=== PATIENT | male | born 1995 | race American Indian/Alaskan Native ===

== ENCOUNTER 2017-07-15 07:42 | Emergency (ER) | payer SELFPAY ==
[2017-07-15 08:17] VITALS: BP 122/68
== END 2017-07-15 09:25 | disposition left against medical advice (07) ==
LOC: ED 07:42
DX: R51 Headache (principal); M79.1 Myalgia; Z53.21 Procedure and treatment not carried out due to patient leaving prior to being seen by health care provider

== ENCOUNTER 2017-07-16 15:52 | Emergency (ER) | payer OTHER ==
[2017-07-16 16:19] LABS: Hematocrit 50.4 % (35.5-45.6); Hemoglobin 17.2 gm/dl (11.8-15.2); Mean Corpuscular HGB Conc 34 % (32-34); Mean Corpuscular Hemoglobin 29 pg (28-32); Mean Corpuscular Volume 86 fl (84-94); Platelet Count 333 K/mm3 (140-440); Red Blood Count 5.86 M/mm3 (3.65-5.03); Red Cell Distribution Width 13.2 % (13.2-15.2)
[2017-07-16] MEDS ORDERED: KEPPRA 1,000 MG/NS 0.75% 100ML 1,000 MG/100 ML BAG IV ONE (16:23)
[2017-07-16] MEDS ORDERED: ATIVAN IV ONE (16:23)
--- NOTE | 2017-07-16 16:31 | Emergency Department Report ---
HPI - General Chief Complaint: Seizure Time Seen by Provider: 07/16/17 16:18 - HPI HPI: 21-year-old male presents to the emergency department with complaint of a seizure that occurred prior to presentation. It is unknown how long the seizure lasted. The patient's girlfriend is bedside and says she was called by someone to come and get him and he appeared postictal at that time. He is now awake and alert but even upon presentation he was having some muscle spasms and/or jerking that was uncontrollable but he was awake and alert at the time. He has a history of some complex migraines as well as a seizure history but he says that he has been to 2 different neurologists and "nobody can figure out what is going on" and therefore he is not on any seizure medications. He does occasionally smoke marijuana but denies any alcohol. No recent travel or sick contacts at home. ED Past Medical Hx - Past Medical History Previous Medical History?: Yes Hx Headaches / Migraines: Yes (complex) Hx Asthma: Yes - Surgical History Past Surgical History?: No - Social History Smoking Status: Never Smoker Substance Use Type: Marijuana - Medications Home Medications: Home Medications Medication Instructions Recorded Confirmed Last Taken Type levETIRAcetam [Keppra TAB] 500 mg PO BID #40 tablet 07/16/17 Unknown Rx ED Review of Systems ROS: Stated complaint: SEIZURE Other details as noted in HPI Comment: All other systems reviewed and negative Constitutional: denies: chills, fever Eyes: denies: eye pain, eye discharge, vision change ENT: denies: ear pain, throat pain Respiratory: denies: cough, shortness of breath, wheezing Cardiovascular: denies: chest pain, palpitations Gastrointestinal: denies: abdominal pain, nausea, diarrhea Genitourinary: denies: urgency, dysuria Musculoskeletal: myalgia. denies: back pain, joint swelling Skin: denies: rash, lesions Neurological: headache, other (seizure). denies: numbness Physical Exam - Physical Exam Vital Signs: Vital Signs 07/16/17 07/16/17 16:11 16:17 Temperature 99.0 F Pulse Rate 78 Respiratory 16 19 Rate Blood Pressure 132/79 O2 Sat by Pulse 99 99 Oximetry Physical Exam: GENERAL: The patient is well-developed well-nourished. HENT: Normocephalic. Atraumatic. Patient has moist mucous membranes. EYES: Extraocular motions are intact. Pupils equal reactive to light bilaterally. No nystagmus. NECK: Supple. Trachea is midline. CHEST/LUNGS: Clear to auscultation. There is no respiratory distress noted. HEART/CARDIOVASCULAR: Regular. There is no tachycardia. There is no murmur. ABDOMEN: Abdomen is soft, nontender. Patient has normal bowel sounds. There is no abdominal distention. SKIN: Skin is warm and dry. NEURO: The patient is awake, alert, and oriented. The patient is cooperative. The patient has no focal neurologic deficits. The patient has normal speech and gait. Cranial nerves II through XII grossly intact. MUSCULOSKELETAL: There is no tenderness or deformity. There is no limitation range of motion. There is no evidence of acute injury. ED Course Vital Signs 07/16/17 07/16/17 16:11 16:17 Temperature 99.0 F Pulse Rate 78 Respiratory 16 19 Rate Blood Pressure 132/79 O2 Sat by Pulse 99 99 Oximetry ED Medical Decision Making - Lab Data Result diagrams: 07/16/17 15:54 07/16/17 15:54 - EKG Data -: EKG Interpreted by Fl EKG shows normal: sinus rhythm, axis (right axis deviation), intervals, QRS complexes, ST-T waves Rate: bradycardia (51 bpm) - EKG Data When compared to previous EKG there are: previous EKG unavailable Interpretation: other (sinus bradycardia at 51 bpm, right axis deviation) - Medical Decision Making Patient had a seizure prior to presentation but has been awake and alert since being in the emergency department. He also allegedly had some type of muscle spasm and/or twitching after the seizure and after the postictal period but I did not witness this. At this point the patient has been in the emergency department for over 3 hours and has been reevaluated multiple times and there has been no further seizure-like activity or any muscle spasm/twitches. His labs are been unremarkable and do not show any etiology of his symptoms. Since the patient does have a history of previous seizures and just had 1 episode today, and is currently awake and alert, did not feel that any CT imaging of the head was necessary at this time. He was covered with 1 g of Keppra. He was given a little Ativan more for the muscle spasm and/or twitching. Prior to discharge he was able to get up, ambulate around the emergency department, and did not show any instability. He has good follow-up with neurology. I am starting him on Keppra until he sees the neurologist. He apparently has some history of complex migraines and maybe this is the cause of the seizures but since he has had a few seizures in the last few weeks I will start him on the Keppra until neurology follow-up. He will return to the ER with any worsening of his symptoms or any acute distress. All questions have been answered and he understands and agrees to the plan. - Differential Diagnosis epilepsy, complex migraine, hypoglycemia, dysrhythmia Critical Care Time: No Critical care attestation.: If time is entered above; I have spent that time in minutes in the direct care of this critically ill patient, excluding procedure time. ED Disposition Clinical Impression: Seizure disorder Disposition: DC-01 TO HOME OR SELFCARE Is pt being admited?: No Condition: Stable Instructions: Recurrent Seizures Adult (ED) Additional Instructions: Please follow-up with your neurologist in the next few days. Return to the emergency Department with any worsening of your symptoms or any acute distress. Until you have been able to follow up with your neurologist, I have started you on a antiepileptic medication called Keppra that is to be taken twice daily. Prescriptions: levETIRAcetam [Keppra TAB] 500 mg PO BID #40 tablet Referrals: Neurologist, Your [Other] - LORI Forms: Work/School Release Form(ED) Time of Disposition: 19:19
[2017-07-16 17:10] LABS: BUN/Creatinine Ratio 17; Blood Urea Nitrogen 15 mg/dL (9-20); Calcium 9.8 mg/dL (8.4-10.2); Hemolysis Index 27
[2017-07-16] MEDS ORDERED: NACL 0.9% 1000 ML 1,000 ML IV ONE (17:18)
[2017-07-16 17:21] LABS: Alanine Aminotransferase 25 units/L (7-56); Albumin 5.4 g/dL (3.9-5)
[2017-07-16 17:29] LABS: Bilirubin,Direct < 0.2 mg/dL (0-0.2)
[2017-07-16 19:44] VITALS: BP 99/52
== END 2017-07-16 19:42 | disposition home or self-care (01) ==
LOC: ED 15:52
DX: G40.909 Epilepsy, unspecified, not intractable, without status epilepticus (principal); J45.909 Unspecified asthma, uncomplicated; G43.909 Migraine, unspecified, not intractable, without status migrainosus; F12.10 Cannabis abuse, uncomplicated
CPT/HCPCS: 36415; 80048; 80074; 82550; 84443; 85027; 93005; 93010; 96365; 96375; 99284; G0480; J1953; J2060; J7030; 80320

== ENCOUNTER 2017-08-24 12:05 | Emergency (ER) | payer OTHER ==
[2017-08-24 12:17] VITALS: BP 113/67
== END 2017-08-24 13:10 | disposition left against medical advice (07) ==
LOC: ED 12:05
DX: R56.9 Unspecified convulsions (principal); Z53.21 Procedure and treatment not carried out due to patient leaving prior to being seen by health care provider

== ENCOUNTER 2017-10-09 10:46 | Inpatient (IN) | payer OTHER ==
[2017-10-09] MEDS ORDERED: ATIVAN IV ONE ×4 (10:49→11:07)
[2017-10-09] MEDS ORDERED: KEPPRA 1,000 MG/NS 0.75% 100ML 1,000 MG/100 ML BAG IV ONE ×2 (11:00→22:20)
[2017-10-09] MEDS ORDERED: ARTIFICIAL TEARS OPHTH OINT OU PRN (11:01)
[2017-10-09] MEDS ORDERED: VASELINE LIP THERAPY TP PRN (11:01)
[2017-10-09] MEDS ORDERED: DIPRIVAN 10 MG/ML 1,000 MG/100 ML BOTTLE IV ONE ×2 (11:04→21:29)
[2017-10-09] MEDS: DIPRIVAN 10 MG/ML 1,000 MG/100 ML BOTTLE IV SCH ×2 (11:05→21:36)
--- NOTE | 2017-10-09 11:18 | Emergency Department Report ---
ED Seizure HPI - General Chief Complaint: Seizure Stated Complaint: SEIZURE Time Seen by Provider: 10/09/17 10:46 Source: patient, family Mode of arrival: Ambulatory Limitations: No Limitations - History of Present Illness Initial Comments: Patient is a 21-year-old male that presents to emergency room the POV and family for a 30 minute seizure. Patient continues to seize. Grand mal seizure noted. Patient has a known seizure history but has not had seizures in many years MD Complaint: seizure -: Sudden Description of Episode: loss of consciousness, tonic-clonic movement, bladder incontinence -: minutes(s) Witnessed:: Yes Trauma: No Seizure History: known seizure disorder Place: home Possible Precipitating Event: none Associated Symptoms: denies other symptoms, chest pain Treatments Prior to Arrival: none - Related Data Previous Rx's Medication Instructions Recorded Last Taken Type levETIRAcetam [Keppra TAB] 500 mg PO BID #40 tablet 07/16/17 Unknown Rx Allergies Allergy/AdvReac Type Severity Reaction Status Date / Time No Known Allergies Allergy Unverified 07/15/17 08:17 ED Review of Systems ROS: Stated complaint: SEIZURE Other details as noted in HPI Comment: Unobtainable due to pts medical conditions ED Past Medical Hx - Past Medical History Previous Medical History?: Yes Hx Headaches / Migraines: Yes (complex) Hx Seizures: Yes Hx Asthma: Yes - Surgical History Past Surgical History?: Yes Additional Surgical History: left shoulder - Family History Family history: no significant - Social History Smoking Status: Never Smoker Substance Use Type: Other - Medications Home Medications: Home Medications Medication Instructions Recorded Confirmed Last Taken Type levETIRAcetam [Keppra TAB] 500 mg PO BID #40 tablet 07/16/17 10/09/17 Unknown Rx ED Physical Exam - General Limitations: Altered Mental Status, Other (clinical situation) General appearance: lethargic - Head Head exam: Present: atraumatic, normocephalic - Eye Eye exam: Present: normal appearance, PERRL Pupils: Present: normal accommodation - ENT ENT exam: Present: mucous membranes dry - Neck Neck exam: Present: normal inspection - Respiratory Respiratory exam: Present: normal lung sounds bilaterally, respiratory distress , decreased breath sounds - Cardiovascular Cardiovascular Exam: Present: regular rate, normal rhythm. Absent: systolic murmur, diastolic murmur, rubs, gallop - GI/Abdominal GI/Abdominal exam: Present: soft - Rectal Rectal exam: Present: deferred - Extremities Exam Extremities exam: Present: normal inspection - Back Exam Back exam: Present: normal inspection - Neurological Exam Neurological exam: Present: altered, other (patient actively seizing) - Skin Skin exam: Present: warm, dry, intact, normal color. Absent: rash ED Course Vital Signs 10/09/17 10/09/17 10/09/17 10:48 11:42 12:36 Temperature 98.2 F Pulse Rate 92 H 68 57 L Respiratory 18 15 Rate Blood Pressure 133/61 Blood Pressure 123/85 [Left] O2 Sat by Pulse 100 100 Oximetry 10/09/17 14:07 Temperature Pulse Rate 55 L Respiratory Rate Blood Pressure 140/77 Blood Pressure [Left] O2 Sat by Pulse 100 Oximetry - Reevaluation(s) Reevaluation #1: Patient brought directly from POV to room 1. Patient is currently status epilepticus. Patient started being given 5 mg of Ativan and patient continues to seize. We will intubate patient to protect airway. Patient given etomidate and succ and seizure stopped. See intubation note. Patient will be given a gram of Keppra. 10/09/17 10:40 Family meeting done. Family updated on patient's status. 10/09/17 11:40 Reevaluation #2: Patient resting in bed on vent. CT head and labs pending. No seizure activity noted 10/09/17 12:52 Reevaluation #3: Patient resting comfortably on bed. No seizure activity since intubation. 10/09/17 14:00 - Consultations Consultation #1: Hospitalist consulted for admission. Hospitalist was admitted to the hospitalist and ICU team. Hospitalist, Dr. Baker to assume care 10/09/17 14:00 - Intubation Time Out Performed: Yes Sedative: Etomidate Paralytic: Succinylcholine Laryngoscope: Jaylin Size: 4 ET Tube Size: 7.5 Tube Secured Depth (cm): 24 Tube Secured Location: teeth Tube Placement Confirmation: visualized tube passing t, equal breath sounds bilat, no breath sounds over epi, confirmation by capnometr Patient Tolerated Procedure: well Intubation Complications: none ED Medical Decision Making - Lab Data Result diagrams: 10/09/17 11:39 10/09/17 11:39 - EKG Data -: EKG Interpreted by Me EKG shows normal: sinus rhythm, axis, intervals, QRS complexes, ST-T waves Rate: bradycardia - Radiology Data Radiology results: image reviewed interpreted by me: et in good place ADDENDUM Addendum: Tip of endotracheal is in normal position. Addendum Transcribed By: NATALIIA Addendum Dictated By: JESS CASSIDY MD Addendum Electronically Authenticated By: JESS CASSIDY MD Addendum Signed Date/Time: 10/09/171224 DD/ TD/TT: 10/09/17 Single view chest: History: ET tube placement. Findings: Normal cardiomediastinal silhouette. Trachea is midline. No consolidation, pneumothorax or pleural effusion. Impression: No acute cardiopulmonary findings Transcribed By: PTP Dictated By: JESS CASSIDY MD Electronically Authenticated By: JESS CASSIDY MD Signed Date/Time: 10/09/172 - Medical Decision Making Patient is a 21-year-old male that presents emergency room with status epilepticus for 30+ minutes. Patient's seizure in ER was difficult to control. Patient required intubation to protect airway. Since intubation no seizure activity has been noted. CT head normal limit. X-ray shows ET tube in good place. Patient to be admitted to the hospitalist service for further evaluation and treatment. Patient admitted to the ICU team for further evaluation treatment. - Differential Diagnosis sz. Noncompliance. Dehydration. Status epilepticus Critical Care Time: Yes Critical care attestation.: If time is entered above; I have spent that time in minutes in the direct care of this critically ill patient, excluding procedure time. Critical Care Time: 45 minutes for cc time. ED Disposition Clinical Impression: Seizure, Status epilepticus, Lactic acidosis Disposition: OP ADMIT IP TO THIS HOSP Is pt being admited?: Yes Does the pt Need Aspirin: No Condition: Critical Time of Disposition: 13:19
[2017-10-09] MEDS ORDERED: NACL 0.9% 1000 ML 0 ML ONE (11:26)
[2017-10-09] MEDS ORDERED: NACL 0.9% 500 ML IV SCH (12:00)
--- NOTE | 2017-10-09 12:31 | XRay Report ---
Single view chest: History: ET tube placement. Findings: Normal cardiomediastinal silhouette. Trachea is midline. No consolidation, pneumothorax or pleural effusion. Impression: No acute cardiopulmonary findings
[2017-10-09] MEDS ORDERED: NACL 0.9% 1000 ML 1,000 ML ONE ×3 (12:36→23:02)
[2017-10-09 12:37] LABS: Hematocrit 45.4 % (35.5-45.6); Hemoglobin 14.2 gm/dl (11.8-15.2); Mean Corpuscular HGB Conc 31 % (32-34); Mean Corpuscular Hemoglobin 29 pg (28-32); Mean Corpuscular Volume 94 fl (84-94); Platelet Count 225 K/mm3 (140-440); Red Blood Count 4.85 M/mm3 (3.65-5.03); Red Cell Distribution Width 13.9 % (13.2-15.2)
[2017-10-09 12:49] LABS: Bacteria,Urine 1+ /HPF (Negative); Bilirubin,Urine NEG (Negative); Blood,Urine NEG (Negative); Color,Urine Yellow (Yellow); Hyaline Casts,Urine 3 /LPF; Mucus,Urine FEW /HPF; RBC,Urine < 1.0 /HPF (0.0-6.0); Sperm,Urine FEW /HPF (NP); Urobilinogen,Urine < 2.0 mg/dL (<2.0)
[2017-10-09 12:50] LABS: Alanine Aminotransferase 18 units/L (7-56); Albumin 3.9 g/dL (3.9-5); BUN/Creatinine Ratio 13; Blood Urea Nitrogen 12 mg/dL (9-20); Calcium 8.7 mg/dL (8.4-10.2); Hemolysis Index 23
[2017-10-09 12:54] LABS: Amphetamine Screen,Urine PRESUMPTIVE NEGATIVE; Benzodiazepines Screen,Urine PRESUMPTIVE NEGATIVE; Cocaine Screen,Urine PRESUMPTIVE NEGATIVE; Methadone Screen,Urine PRESUMPTIVE NEGATIVE; Opiate Screen,Urine PRESUMPTIVE NEGATIVE
[2017-10-09] MEDS ORDERED: AMIDATE IV ONE (13:00)
[2017-10-09] MEDS ORDERED: QUELICIN ONE (13:00)
[2017-10-09 13:09] LABS: Cannabinoid Screen,Urine PRESUMPTIVE POSITIVE
--- NOTE | 2017-10-09 13:13 | Cat Scan Report ---
CT scan of head without IV contrast: History: Seizure. Findings: Ventricles are normal in size and midline in location. No evidence of hematoma hemorrhage or mass. No extra-axial fluid collection. Normal visualized sinuses and mastoid air cells Impression: No acute intracranial abnormality
[2017-10-09 13:18] LABS: Total Cells Counted 100
[2017-10-09 13:19] LABS: Basophils % (Manual) 0 % (0.0-1.8); Eosinophils % (Manual) 0 % (0.0-4.3)
[2017-10-09 13:20] LABS: RBC Morphology Normal
[2017-10-09 14:48] LABS: Creatine Kinase MB 1.3 ng/mL (0.0-4.0)
--- NOTE | 2017-10-09 16:33 | History and Physical Report ---
History of Present Illness Date of examination: 10/09/17 Date of admission: 10/09/17 Chief complaint: Cc Cont seizures History of present illness: History of Present Illness: Patient is a 21-year-old male that presents to emergency room the POV and family for a 30 minute seizure. Patient continues to seize. Grand mal seizure noted. Patient has a known seizure history but has not had seizures in many years MD Complaint: seizure -: Sudden Description of Episode: loss of consciousness, tonic-clonic movement, bladder incontinence 30 minutes(s) Witnessed:: Yes Trauma: No Seizure History: known seizure disorder Place: home Possible Precipitating Event: none Associated Symptoms: denies other symptoms, chest pain Treatments Prior to Arrival: none Past Medical History Previous Medical History?: Yes Hx Headaches / Migraines: Yes (complex) Hx Seizures: Yes Hx Asthma: Yes Surgical History Past Surgical History?: Yes Additional Surgical History: left shoulder Family History Family history: no significant Social History Smoking Status: Never Smoker Substance Use Type: Other - Medications Home Medications: Home Medications Medication Instructions Recorded Confirmed Last Taken Type levETIRAcetam [Keppra TAB] 500 mg PO BID #40 tablet 07/16/17 10/09/17 Unknown Rx Review of Systems ROS: Stated complaint: SEIZURE Other details as noted in HPI Comment: Unobtainable due to pts medical conditions Medications and Allergies Allergies Allergy/AdvReac Type Severity Reaction Status Date / Time No Known Allergies Allergy Unverified 07/15/17 08:17 Home Medications Medication Instructions Recorded Confirmed Last Taken Type levETIRAcetam [Keppra TAB] 500 mg PO BID #40 tablet 07/16/17 10/09/17 Unknown Rx Active Meds: Active Medications Hydrophilic Ointment (Vaseline Lip Therapy) 1 applic TP Q2HR PRN PRN Reason: Dry Lips Propofol (Diprivan 10 Mg/Ml) 1,000 mg in 100 mls @ 2.449 mls/hr IV TITR VALERIA; Protocol Last Titration: 10/09/17 11:50 Dose: 40 mcg/kg/min, 19.595 mls/hr Multi-Ingred Cream/Lotion/Oil/Oint (Artificial Tears Ophth Oint) 1 applic OU Q4HR PRN PRN Reason: Dry Eye(s) Sodium Chloride (Nacl 0.9% 500 Ml) 1 ml IV DIRECT VALERIA Exam - Physical Exam Narrative exam: Patient intubated - Constitutional Vitals: Temp Pulse Resp BP Pulse Ox 98.2 F 55 L 15 140/77 100 10/09/17 12:36 10/09/17 14:07 10/09/17 12:36 10/09/17 14:07 10/09/17 14:07 General appearance: Present: severe distress, well-nourished - EENT Eyes: Present: PERRL ENT: hearing intact, clear oral mucosa - Neck Neck: Present: supple, normal ROM - Respiratory Respiratory effort: normal Respiratory: bilateral: CTA - Cardiovascular Heart rate: 80 Rhythm: regular Heart Sounds: Present: S1 & S2. Absent: rub, click - Extremities Extremities: no ischemia, pulses intact, pulses symmetrical, No edema Peripheral Pulses: within normal limits - Abdominal General gastrointestinal: Present: soft, non-tender, non-distended, normal bowel sounds Male genitourinary: Present: normal - Rectal Rectal Exam: deferred - Integumentary Integumentary: Present: clear, warm, dry - Musculoskeletal Musculoskeletal: generalized weakness - Psychiatric Psychiatric: other (Intubated) - Neurologic Neurologic: CNII-XII intact, moves all extremities Results - Labs CBC & Chem 7: 10/10/17 05:23 10/10/17 05:23 Labs: Laboratory Last Values WBC 3.4 K/mm3 (4.5-11.0) L 10/09/17 11:39 RBC 4.85 M/mm3 (3.65-5.03) 10/09/17 11:39 Hgb 14.2 gm/dl (11.8-15.2) 10/09/17 11:39 Hct 45.4 % (35.5-45.6) 10/09/17 11:39 MCV 94 fl (84-94) 10/09/17 11:39 MCH 29 pg (28-32) 10/09/17 11:39 MCHC 31 % (32-34) L 10/09/17 11:39 RDW 13.9 % (13.2-15.2) 10/09/17 11:39 Plt Count 225 K/mm3 (140-440) 10/09/17 11:39 Add Manual Diff Complete 10/09/17 11:39 Total Counted 100 10/09/17 11:39 Seg Neuts % (Manual) 56.0 % (40.0-70.0) 10/09/17 11:39 Band Neutrophils % 0 % 10/09/17 11:39 Lymphocytes % (Manual) 32.0 % (13.4-35.0) 10/09/17 11:39 Reactive Lymphs % (Man) 0 % 10/09/17 11:39 Monocytes % (Manual) 12.0 % (0.0-7.3) H 10/09/17 11:39 Eosinophils % (Manual) 0 % (0.0-4.3) 10/09/17 11:39 Basophils % (Manual) 0 % (0.0-1.8) 10/09/17 11:39 Metamyelocytes % 0 % 10/09/17 11:39 Myelocytes % 0 % 10/09/17 11:39 Promyelocytes % 0 % 10/09/17 11:39 Blast Cells % 0 % 10/09/17 11:39 Nucleated RBC % Not Reportable 10/09/17 11:39 Seg Neutrophils # Man 1.9 K/mm3 (1.8-7.7) 10/09/17 11:39 Band Neutrophils # 0.0 K/mm3 10/09/17 11:39 Lymphocytes # (Manual) 1.1 K/mm3 (1.2-5.4) L 10/09/17 11:39 Abs React Lymphs (Man) 0.0 K/mm3 10/09/17 11:39 Monocytes # (Manual) 0.4 K/mm3 (0.0-0.8) 10/09/17 11:39 Eosinophils # (Manual) 0.0 K/mm3 (0.0-0.4) 10/09/17 11:39 Basophils # (Manual) 0.0 K/mm3 (0.0-0.1) 10/09/17 11:39 Metamyelocytes # 0.0 K/mm3 10/09/17 11:39 Myelocytes # 0.0 K/mm3 10/09/17 11:39 Promyelocytes # 0.0 K/mm3 10/09/17 11:39 Blast Cells # 0.0 K/mm3 10/09/17 11:39 WBC Morphology Not Reportable 10/09/17 11:39 Hypersegmented Neuts Not Reportable 10/09/17 11:39 Hyposegmented Neuts Not Reportable 10/09/17 11:39 Hypogranular Neuts Not Reportable 10/09/17 11:39 Smudge Cells Not Reportable 10/09/17 11:39 Toxic Granulation Not Reportable 10/09/17 11:39 Toxic Vacuolation Not Reportable 10/09/17 11:39 Dohle Bodies Not Reportable 10/09/17 11:39 Pelger-Huet Anomaly Not Reportable 10/09/17 11:39 Artie Rods Not Reportable 10/09/17 11:39 Platelet Estimate Appears normal 10/09/17 11:39 Clumped Platelets Not Reportable 10/09/17 11:39 Plt Clumps, EDTA Not Reportable 10/09/17 11:39 Large Platelets Not Reportable 10/09/17 11:39 Giant Platelets Not Reportable 10/09/17 11:39 Platelet Satelliting Not Reportable 10/09/17 11:39 Plt Morphology Comment Not Reportable 10/09/17 11:39 RBC Morphology Normal 10/09/17 11:39 Dimorphic RBCs Not Reportable 10/09/17 11:39 Polychromasia Not Reportable 10/09/17 11:39 Hypochromasia Not Reportable 10/09/17 11:39 Poikilocytosis Not Reportable 10/09/17 11:39 Anisocytosis Not Reportable 10/09/17 11:39 Microcytosis Not Reportable 10/09/17 11:39 Macrocytosis Not Reportable 10/09/17 11:39 Spherocytes Not Reportable 10/09/17 11:39 Pappenheimer Bodies Not Reportable 10/09/17 11:39 Sickle Cells Not Reportable 10/09/17 11:39 Target Cells Not Reportable 10/09/17 11:39 Tear Drop Cells Not Reportable 10/09/17 11:39 Ovalocytes Not Reportable 10/09/17 11:39 Helmet Cells Not Reportable 10/09/17 11:39 [place] Bodies Not Reportable 10/09/17 11:39 [place] Rings Not Reportable 10/09/17 11:39 [place] Cells Not Reportable 10/09/17 11:39 Bite Cells Not Reportable 10/09/17 11:39 Crenated Cell Not Reportable 10/09/17 11:39 Elliptocytes Not Reportable 10/09/17 11:39 Acanthocytes (Spur) Not Reportable 10/09/17 11:39 Rouleaux Not Reportable 10/09/17 11:39 Hemoglobin C Crystals Not Reportable 10/09/17 11:39 Schistocytes Not Reportable 10/09/17 11:39 Malaria parasites Not Reportable 10/09/17 11:39 Bogdan Bodies Not Reportable 10/09/17 11:39 Hem Pathologist Commnt No 10/09/17 11:39 POC ABG pH 7.346 (7.35-7.45) L 10/09/17 14:05 POC ABG pCO2 49.0 (35-45) H 10/09/17 14:05 POC ABG pO2 301 (80-105) H 10/09/17 14:05 POC ABG HCO3 26.8 10/09/17 14:05 POC ABG Total CO2 28 10/09/17 14:05 POC ABG O2 Sat 100 10/09/17 14:05 POC ABG Base Excess 1 10/09/17 14:05 FiO2 55 % 10/09/17 14:05 Sodium 144 mmol/L (137-145) 10/09/17 11:39 Potassium 3.5 mmol/L (3.6-5.0) L 10/09/17 11:39 Chloride 107.1 mmol/L (98-107) H 10/09/17 11:39 Carbon Dioxide 21 mmol/L (22-30) L 10/09/17 11:39 Anion Gap 19 mmol/L 10/09/17 11:39 BUN 12 mg/dL (9-20) 10/09/17 11:39 Creatinine 0.9 mg/dL (0.8-1.5) 10/09/17 11:39 Estimated GFR > 60 ml/min 10/09/17 11:39 BUN/Creatinine Ratio 13 % 10/09/17 11:39 Glucose 92 mg/dL (75-100) 10/09/17 11:39 Lactic Acid 2.50 mmol/L (0.7-2.0) H* 10/09/17 15:39 Calcium 8.7 mg/dL (8.4-10.2) 10/09/17 11:39 Total Bilirubin 0.40 mg/dL (0.1-1.2) 10/09/17 11:39 AST 21 units/L (5-40) 10/09/17 11:39 ALT 18 units/L (7-56) 10/09/17 11:39 Alkaline Phosphatase 36 units/L (35-129) 10/09/17 11:39 Total Creatine Kinase 217 units/L (55-170) H 10/09/17 11:39 CK-MB (CK-2) 1.3 ng/mL (0.0-4.0) 10/09/17 11:39 CK-MB (CK-2) Rel Index 0.5 (0-4) 10/09/17 11:39 Troponin T < 0.010 ng/mL (0.00-0.029) 10/09/17 11:39 Total Protein 6.8 g/dL (6.3-8.2) 10/09/17 11:39 Albumin 3.9 g/dL (3.9-5) 10/09/17 11:39 Albumin/Globulin Ratio 1.3 % 10/09/17 11:39 Urine Color Yellow (Yellow) 10/09/17 12:30 Urine Turbidity Clear (Clear) 10/09/17 12:30 Urine pH 6.0 (5.0-7.0) 10/09/17 12:30 Ur Specific [place] 1.023 (1.003-1.030) 10/09/17 12:30 Urine Protein 30 mg/dl mg/dL (Negative) 10/09/17 12:30 Urine Glucose (UA) Neg mg/dL (Negative) 10/09/17 12:30 Urine Ketones Neg mg/dL (Negative) 10/09/17 12:30 Urine Blood Neg (Negative) 10/09/17 12:30 Urine Nitrite Neg (Negative) 10/09/17 12:30 Urine Bilirubin Neg (Negative) 10/09/17 12:30 Urine Urobilinogen < 2.0 mg/dL (<2.0) 10/09/17 12:30 Ur Leukocyte Esterase Neg (Negative) 10/09/17 12:30 Urine WBC (Auto) 2.0 /HPF (0.0-6.0) 10/09/17 12:30 Urine RBC (Auto) < 1.0 /HPF (0.0-6.0) 10/09/17 12:30 Urine Bacteria (Auto) 1+ /HPF (Negative) 10/09/17 12:30 Hyaline Casts 3 /LPF 10/09/17 12:30 Urine Mucus Few /HPF 10/09/17 12:30 Urine Sperm Few /HPF (PLATFORM CONSULTANT) 10/09/17 12:30 Urine Opiates Screen Presumptive negative 10/09/17 12:30 Urine Methadone Screen Presumptive negative 10/09/17 12:30 Ur Barbiturates Screen Presumptive negative 10/09/17 12:30 Ur Phencyclidine Scrn Presumptive negative 10/09/17 12:30 Ur Amphetamines Screen Presumptive negative 10/09/17 12:30 U Benzodiazepines Scrn Presumptive negative 10/09/17 12:30 Urine Cocaine Screen Presumptive negative 10/09/17 12:30 U Marijuana (THC) Screen Presumptive positive 10/09/17 12:30 Drugs of Abuse Note Disclamer 10/09/17 12:30 Short CBC 10/09/17 10/10/17 Range/Units 11:39 05:23 WBC 3.4 L 5.3 (4.5-11.0) K/mm3 Hgb 14.2 13.4 (11.8-15.2) gm/dl Hct 45.4 39.1 D (35.5-45.6) % Plt Count 225 208 (140-440) K/mm3 BMP 10/09/17 10/10/17 11:39 05:23 Sodium 144 143 Potassium 3.5 L 3.7 Chloride 107.1 H 109.1 H Carbon Dioxide 21 L 26 BUN 12 8 L Creatinine 0.9 0.8 Glucose 92 86 Calcium 8.7 8.7 Cardiac Enzymes 10/09/17 Range/Units 11:39 Total Creatine Kinase 217 H (55-170) units/L CK-MB (CK-2) 1.3 (0.0-4.0) ng/mL Troponin T < 0.010 (0.00-0.029) ng/mL Liver Function 10/09/17 10/10/17 Range/Units 11:39 05:23 Total Bilirubin 0.40 0.40 (0.1-1.2) mg/dL AST 21 17 (5-40) units/L ALT 18 12 (7-56) units/L Alkaline Phosphatase 36 34 L (35-129) units/L Albumin 3.9 3.7 L (3.9-5) g/dL Urine 10/09/17 Range/Units 12:30 Urine Color Yellow (Yellow) Urine pH 6.0 (5.0-7.0) Ur Specific [place] 1.023 (1.003-1.030) Urine Protein 30 mg/dl (Negative) mg/dL Urine Glucose (UA) Neg (Negative) mg/dL - Imaging and Cardiology CT Scan - head: report reviewed (Naf) Assessment and Plan Assessment and plan: Critical care Statement: The high probability of a clinically significant, sudden or life threatening deterioration of the [Pulmonary, cadiac, renal] system(s) required my full and direct attention, intervention and personal management. The aggregate critical care time was [45] minutes. This time is in addition to time spent performing reported procedures but includes the following: [x] Data Review and interpretation [x] Patient assessment and monitoring of vital signs [x] Documentation [x] Medication orders and management Advance Directives: Yes (FC) VTE prophylaxis?: Chemical Plan of care discussed with patient/family: Yes - Patient Problems (1) Acute respiratory failure Current Visit: Yes Status: Acute Qualifiers: Respiratory failure complication: unspecified whether with hypoxia or hypercapnia Qualified Code(s): J96.00 - Acute respiratory failure, unspecified whether with hypoxia or hypercapnia Plan to address problem: Intubated for airway proection Pulmonary/critical care consult requested (2) Status epilepticus Current Visit: Yes Status: Acute Plan to address problem: IV keppra initiated Neuro consult Compliance issues (3) Lactic acidosis Current Visit: Yes Status: Acute Plan to address problem: Sec to seizing No signs of sepsis No abx were initiated (4) Hypokalemia Current Visit: Yes Status: Acute Plan to address problem: Suppplemented (5) DVT prophylaxis Current Visit: Yes Status: Acute Plan to address problem: On Lovenox
[2017-10-09] MEDS ORDERED: SODIUM CHLORIDE FLUSH SYRINGE 10 ML IV PRN (16:38)
[2017-10-09] MEDS ORDERED: MORPHINE IV PRN (16:38)
[2017-10-09] MEDS ORDERED: fentaNYL DRIP Premix 2,000 MCG/100 ML BAG IV ONE (20:39)
[2017-10-09] MEDS: fentaNYL DRIP Premix 2,000 MCG/100 ML BAG IV SCH (20:45)
[2017-10-09] MEDS ORDERED: PEPCID IV ONE (22:20)
[2017-10-09] MEDS: PEPCID IV SCH (22:23)
[2017-10-09] MEDS: SODIUM CHLORIDE FLUSH SYRINGE 10 ML IV SCH (22:24)
[2017-10-09] MEDS: KEPPRA 1,000 MG/NS 0.75% 100ML 1,000 MG/100 ML BAG IV SCH (22:24)
[2017-10-09] MEDS ORDERED: D5NS 1,000 ML IV ONE (23:06)
[2017-10-09] MEDS: D5NS 1,000 ML IV SCH (23:08)
[2017-10-10] MEDS ORDERED: DIPRIVAN 10 MG/ML 1,000 MG/100 ML BOTTLE IV ONE ×4 (00:47→12:38)
--- NOTE | 2017-10-10 03:31 | XRay Report ---
FINAL REPORT PROCEDURE: XR CHEST 1V AP TECHNIQUE: Chest radiograph anteroposterior view. CPT 42996 HISTORY: follow up respiratory failure COMPARISON: No prior studies are available for comparison. FINDINGS: Heart: Normal. Mediastinum/Vessels: Normal. Lungs/Pleural space: Normal. Bony thorax: No acute osseous abnormality. Life support devices: The endotracheal tube is in the mid trachea.. IMPRESSION: No acute cardiopulmonary abnormality.
[2017-10-10] MEDS ORDERED: fentaNYL DRIP Premix 0 MCG/0 ML BAG IV ONE (04:28)
[2017-10-10 05:45] LABS: Basophils % (Auto) 0.5 % (0.0-1.8); Eosinophils # (Auto) 0.1 K/mm3 (0.0-0.4); Eosinophils % (Auto) 1.3 % (0.0-4.3); Hematocrit 39.1 % (35.5-45.6); Hemoglobin 13.4 gm/dl (11.8-15.2); Lymphocytes # (Auto) 1.1 K/mm3 (1.2-5.4); Mean Corpuscular HGB Conc 34 % (32-34); Mean Corpuscular Hemoglobin 30 pg (28-32); Mean Corpuscular Volume 86 fl (84-94); Monocytes # (Auto) 0.6 K/mm3 (0.0-0.8); Monocytes % (Auto) 11.6 % (0.0-7.3); Platelet Count 208 K/mm3 (140-440); Red Blood Count 4.53 M/mm3 (3.65-5.03); Red Cell Distribution Width 13.1 % (13.2-15.2)
[2017-10-10 07:37] LABS: Alanine Aminotransferase 12 units/L (7-56); Albumin 3.7 g/dL (3.9-5); BUN/Creatinine Ratio 10; Blood Urea Nitrogen 8 mg/dL (9-20); Calcium 8.7 mg/dL (8.4-10.2); Hemolysis Index 7
[2017-10-10] MEDS ORDERED: fentaNYL DRIP Premix 2,000 MCG/100 ML BAG IV ONE (08:37)
--- NOTE | 2017-10-10 09:36 | Progress Note ---
Assessment and Plan Assessment and plan: Breakthrough seizures. Girlfriend states he had not taken Keppra in 1-2 weeks Acute resp failure, intubated Pulm consulted Medical non-compliance. Full code status History Interval history: breakthrough seizures after stopping Keppra for 2 weeks Hospitalist Physical - Physical exam Narrative exam: GEN:Not in acute distress, Intubated HEENT: Normocephalic, atraumatic, Neck: supple, No JVD Lungs:Clear to auscultation bilaterally, no crackles, no wheeze Heart:S1 and S2 reg, no murmurs, rubs or gallop Abd:soft, non-tender, non-distended, Normal bowel sounds Ext: no edema, no clubbing or cyanosis Neuro: Intubated, sedated - Constitutional Vitals: Temp Pulse Resp BP Pulse Ox 98.6 F 52 L 16 104/56 100 10/09/17 18:43 10/10/17 09:21 10/10/17 08:01 10/10/17 09:21 10/10/17 09:21 General appearance: Present: well-nourished Results - Labs CBC & Chem 7: 10/10/17 05:23 10/10/17 05:23 Labs: Laboratory Last Values WBC 5.3 K/mm3 (4.5-11.0) 10/10/17 05:23 RBC 4.53 M/mm3 (3.65-5.03) 10/10/17 05:23 Hgb 13.4 gm/dl (11.8-15.2) 10/10/17 05:23 Hct 39.1 % (35.5-45.6) D 10/10/17 05:23 MCV 86 fl (84-94) 10/10/17 05:23 MCH 30 pg (28-32) 10/10/17 05:23 MCHC 34 % (32-34) 10/10/17 05:23 RDW 13.1 % (13.2-15.2) L 10/10/17 05:23 Plt Count 208 K/mm3 (140-440) 10/10/17 05:23 Lymph % (Auto) 21.0 % (13.4-35.0) 10/10/17 05:23 [place] % (Auto) 11.6 % (0.0-7.3) H 10/10/17 05:23 Eos % (Auto) 1.3 % (0.0-4.3) 10/10/17 05:23 Baso % (Auto) 0.5 % (0.0-1.8) 10/10/17 05:23 Lymph # 1.1 K/mm3 (1.2-5.4) L 10/10/17 05:23 [place] # 0.6 K/mm3 (0.0-0.8) 10/10/17 05:23 Eos # 0.1 K/mm3 (0.0-0.4) 10/10/17 05:23 Baso # 0.0 K/mm3 (0.0-0.1) 10/10/17 05:23 Add Manual Diff Complete 10/09/17 11:39 Total Counted 100 10/09/17 11:39 Seg Neutrophils % 65.6 % (40.0-70.0) 10/10/17 05:23 Seg Neuts % (Manual) 56.0 % (40.0-70.0) 10/09/17 11:39 Band Neutrophils % 0 % 10/09/17 11:39 Lymphocytes % (Manual) 32.0 % (13.4-35.0) 10/09/17 11:39 Reactive Lymphs % (Man) 0 % 10/09/17 11:39 Monocytes % (Manual) 12.0 % (0.0-7.3) H 10/09/17 11:39 Eosinophils % (Manual) 0 % (0.0-4.3) 10/09/17 11:39 Basophils % (Manual) 0 % (0.0-1.8) 10/09/17 11:39 Metamyelocytes % 0 % 10/09/17 11:39 Myelocytes % 0 % 10/09/17 11:39 Promyelocytes % 0 % 10/09/17 11:39 Blast Cells % 0 % 10/09/17 11:39 Nucleated RBC % Not Reportable 10/09/17 11:39 Seg Neutrophils # 3.5 K/mm3 (1.8-7.7) 10/10/17 05:23 Seg Neutrophils # Man 1.9 K/mm3 (1.8-7.7) 10/09/17 11:39 Band Neutrophils # 0.0 K/mm3 10/09/17 11:39 Lymphocytes # (Manual) 1.1 K/mm3 (1.2-5.4) L 10/09/17 11:39 Abs React Lymphs (Man) 0.0 K/mm3 10/09/17 11:39 Monocytes # (Manual) 0.4 K/mm3 (0.0-0.8) 10/09/17 11:39 Eosinophils # (Manual) 0.0 K/mm3 (0.0-0.4) 10/09/17 11:39 Basophils # (Manual) 0.0 K/mm3 (0.0-0.1) 10/09/17 11:39 Metamyelocytes # 0.0 K/mm3 10/09/17 11:39 Myelocytes # 0.0 K/mm3 10/09/17 11:39 Promyelocytes # 0.0 K/mm3 10/09/17 11:39 Blast Cells # 0.0 K/mm3 10/09/17 11:39 WBC Morphology Not Reportable 10/09/17 11:39 Hypersegmented Neuts Not Reportable 10/09/17 11:39 Hyposegmented Neuts Not Reportable 10/09/17 11:39 Hypogranular Neuts Not Reportable 10/09/17 11:39 Smudge Cells Not Reportable 10/09/17 11:39 Toxic Granulation Not Reportable 10/09/17 11:39 Toxic Vacuolation Not Reportable 10/09/17 11:39 Dohle Bodies Not Reportable 10/09/17 11:39 Pelger-Huet Anomaly Not Reportable 10/09/17 11:39 Artie Rods Not Reportable 10/09/17 11:39 Platelet Estimate Appears normal 10/09/17 11:39 Clumped Platelets Not Reportable 10/09/17 11:39 Plt Clumps, EDTA Not Reportable 10/09/17 11:39 Large Platelets Not Reportable 10/09/17 11:39 Giant Platelets Not Reportable 10/09/17 11:39 Platelet Satelliting Not Reportable 10/09/17 11:39 Plt Morphology Comment Not Reportable 10/09/17 11:39 RBC Morphology Normal 10/09/17 11:39 Dimorphic RBCs Not Reportable 10/09/17 11:39 Polychromasia Not Reportable 10/09/17 11:39 Hypochromasia Not Reportable 10/09/17 11:39 Poikilocytosis Not Reportable 10/09/17 11:39 Anisocytosis Not Reportable 10/09/17 11:39 Microcytosis Not Reportable 10/09/17 11:39 Macrocytosis Not Reportable 10/09/17 11:39 Spherocytes Not Reportable 10/09/17 11:39 Pappenheimer Bodies Not Reportable 10/09/17 11:39 Sickle Cells Not Reportable 10/09/17 11:39 Target Cells Not Reportable 10/09/17 11:39 Tear Drop Cells Not Reportable 10/09/17 11:39 Ovalocytes Not Reportable 10/09/17 11:39 Helmet Cells Not Reportable 10/09/17 11:39 [place] Bodies Not Reportable 10/09/17 11:39 [place] Rings Not Reportable 10/09/17 11:39 [place] Cells Not Reportable 10/09/17 11:39 Bite Cells Not Reportable 10/09/17 11:39 Crenated Cell Not Reportable 10/09/17 11:39 Elliptocytes Not Reportable 10/09/17 11:39 Acanthocytes (Spur) Not Reportable 10/09/17 11:39 Rouleaux Not Reportable 10/09/17 11:39 Hemoglobin C Crystals Not Reportable 10/09/17 11:39 Schistocytes Not Reportable 10/09/17 11:39 Malaria parasites Not Reportable 10/09/17 11:39 Bogdan Bodies Not Reportable 10/09/17 11:39 Hem Pathologist Commnt No 10/09/17 11:39 POC ABG pH 7.467 (7.35-7.45) H 10/10/17 05:54 POC ABG pCO2 38.5 (35-45) 10/10/17 05:54 POC ABG pO2 169 (80-105) H 10/10/17 05:54 POC ABG HCO3 27.9 10/10/17 05:54 POC ABG Total CO2 29 10/10/17 05:54 POC ABG O2 Sat 100 10/10/17 05:54 POC ABG Base Excess 4 10/10/17 05:54 FiO2 35 % 10/10/17 05:54 Sodium 143 mmol/L (137-145) 10/10/17 05:23 Potassium 3.7 mmol/L (3.6-5.0) 10/10/17 05:23 Chloride 109.1 mmol/L (98-107) H 10/10/17 05:23 Carbon Dioxide 26 mmol/L (22-30) 10/10/17 05:23 Anion Gap 12 mmol/L 10/10/17 05:23 BUN 8 mg/dL (9-20) L 10/10/17 05:23 Creatinine 0.8 mg/dL (0.8-1.5) 10/10/17 05:23 Estimated GFR > 60 ml/min 10/10/17 05:23 BUN/Creatinine Ratio 10 % 10/10/17 05:23 Glucose 86 mg/dL (75-100) 10/10/17 05:23 Lactic Acid 1.90 mmol/L (0.7-2.0) 10/09/17 17:10 Calcium 8.7 mg/dL (8.4-10.2) 10/10/17 05:23 Total Bilirubin 0.40 mg/dL (0.1-1.2) 10/10/17 05:23 AST 17 units/L (5-40) 10/10/17 05:23 ALT 12 units/L (7-56) 10/10/17 05:23 Alkaline Phosphatase 34 units/L (35-129) L 10/10/17 05:23 Total Creatine Kinase 217 units/L (55-170) H 10/09/17 11:39 CK-MB (CK-2) 1.3 ng/mL (0.0-4.0) 10/09/17 11:39 CK-MB (CK-2) Rel Index 0.5 (0-4) 10/09/17 11:39 Troponin T < 0.010 ng/mL (0.00-0.029) 10/09/17 11:39 Total Protein 5.9 g/dL (6.3-8.2) L 10/10/17 05:23 Albumin 3.7 g/dL (3.9-5) L 10/10/17 05:23 Albumin/Globulin Ratio 1.7 % 10/10/17 05:23 Urine Color Yellow (Yellow) 10/09/17 12:30 Urine Turbidity Clear (Clear) 10/09/17 12:30 Urine pH 6.0 (5.0-7.0) 10/09/17 12:30 Ur Specific [place] 1.023 (1.003-1.030) 10/09/17 12:30 Urine Protein 30 mg/dl mg/dL (Negative) 10/09/17 12:30 Urine Glucose (UA) Neg mg/dL (Negative) 10/09/17 12:30 Urine Ketones Neg mg/dL (Negative) 10/09/17 12:30 Urine Blood Neg (Negative) 10/09/17 12:30 Urine Nitrite Neg (Negative) 10/09/17 12:30 Urine Bilirubin Neg (Negative) 10/09/17 12:30 Urine Urobilinogen < 2.0 mg/dL (<2.0) 10/09/17 12:30 Ur Leukocyte Esterase Neg (Negative) 10/09/17 12:30 Urine WBC (Auto) 2.0 /HPF (0.0-6.0) 10/09/17 12:30 Urine RBC (Auto) < 1.0 /HPF (0.0-6.0) 10/09/17 12:30 Urine Bacteria (Auto) 1+ /HPF (Negative) 10/09/17 12:30 Hyaline Casts 3 /LPF 10/09/17 12:30 Urine Mucus Few /HPF 10/09/17 12:30 Urine Sperm Few /HPF (REDUCING SALON ATTENDANT) 10/09/17 12:30 Urine Opiates Screen Presumptive negative 10/09/17 12:30 Urine Methadone Screen Presumptive negative 10/09/17 12:30 Ur Barbiturates Screen Presumptive negative 10/09/17 12:30 Ur Phencyclidine Scrn Presumptive negative 10/09/17 12:30 Ur Amphetamines Screen Presumptive negative 10/09/17 12:30 U Benzodiazepines Scrn Presumptive negative 10/09/17 12:30 Urine Cocaine Screen Presumptive negative 10/09/17 12:30 U Marijuana (THC) Screen Presumptive positive 10/09/17 12:30 Drugs of Abuse Note Disclamer 10/09/17 12:30
[2017-10-10] MEDS: KEPPRA 1,000 MG/NS 0.75% 100ML 1,000 MG/100 ML BAG IV SCH ×2 (10:00→21:52)
[2017-10-10] MEDS ORDERED: KCL 10MEQ/100ML 10 MEQ/100 ML BAG IV ONE ×5 (10:11→16:06)
[2017-10-10] MEDS ORDERED: PEPCID IV ONE ×2 (10:12→22:05)
[2017-10-10] MEDS ORDERED: KEPPRA 1,000 MG/NS 0.75% 100ML 1,000 MG/100 ML BAG IV ONE ×2 (10:12→22:05)
[2017-10-10] MEDS: PEPCID IV SCH ×2 (10:30→21:52)
[2017-10-10] MEDS: KCL 10MEQ/100ML 10 MEQ/100 ML BAG IV SCH ×4 (11:05→16:23)
[2017-10-10] MEDS: SODIUM CHLORIDE FLUSH SYRINGE 10 ML IV SCH ×2 (11:06→21:52)
[2017-10-10] MEDS: DIPRIVAN 10 MG/ML 1,000 MG/100 ML BOTTLE IV SCH (12:45)
[2017-10-10] MEDS: fentaNYL DRIP Premix 2,000 MCG/100 ML BAG IV SCH (13:05)
--- NOTE | 2017-10-10 14:44 | Consultation ---
Medications and Allergies Allergies Allergy/AdvReac Type Severity Reaction Status Date / Time No Known Allergies Allergy Unverified 07/15/17 08:17 Home Medications Medication Instructions Recorded Confirmed Last Taken Type levETIRAcetam [Keppra TAB] 500 mg PO BID #40 tablet 07/16/17 10/09/17 Unknown Rx Active Meds: Active Medications Albuterol (Proventil) 2.5 mg IH TIDRT VALERIA Famotidine (Pepcid) 20 mg IV BID [facility] Last Admin: 10/10/17 10:30 Dose: 20 mg Hydrophilic Ointment (Vaseline Lip Therapy) 1 applic TP Q2HR PRN PRN Reason: Dry Lips Propofol (Diprivan 10 Mg/Ml) 1,000 mg in 100 mls @ 2.449 mls/hr IV TITR VALERIA; Protocol Last Titration: 10/10/17 14:24 Dose: 0 mcg/kg/min, 0 mls/hr Dextrose/Sodium Chloride (D5ns) 1,000 mls @ 100 mls/hr IV DIRECT VALERIA Last Admin: 10/09/17 23:08 Dose: 100 mls/hr Levetiracetam (Keppra 1,000 Mg/Ns 0.75% 100ml) 1,000 mg in 100 mls @ 400 mls/ hr IV Q12HR VALERIA Last Admin: 10/10/17 10:00 Dose: 400 mls/hr Fentanyl Citrate (Fentanyl Drip Premix) 2,000 mcg in 100 mls @ 4.082 mls/hr IV TITR VALERIA; Protocol Last Titration: 10/10/17 14:16 Dose: 0 mcg/kg/hr, 0 mls/hr Morphine Sulfate (Morphine) 2 mg IV Q4H PRN PRN Reason: Pain, Moderate (4-6) Multi-Ingred Cream/Lotion/Oil/Oint (Artificial Tears Ophth Oint) 1 applic OU Q4HR PRN PRN Reason: Dry Eye(s) Sodium Chloride (Nacl 0.9% 500 Ml) 1 ml IV DIRECT [facility] Sodium Chloride (Sodium Chloride Flush Syringe 10 Ml) 10 ml IV BID [facility] Last Admin: 10/10/17 11:06 Dose: 10 ml Sodium Chloride (Sodium Chloride Flush Syringe 10 Ml) 10 ml IV PRN PRN PRN Reason: LINE FLUSH Physical Examination Vital signs: Vital Signs Pulse Resp Pulse Ox 92 H 18 100 10/09/17 10:48 10/09/17 10:48 10/09/17 10:48 Results - Laboratory Findings CBC and BMP: 10/10/17 05:23 10/10/17 05:23 ABG POC ABG pH 7.467 (7.35-7.45) H 10/10/17 05:54 POC ABG pCO2 38.5 (35-45) 10/10/17 05:54 POC ABG pO2 169 (80-105) H 10/10/17 05:54 POC ABG HCO3 27.9 10/10/17 05:54 POC ABG Total CO2 29 10/10/17 05:54 POC ABG O2 Sat 100 10/10/17 05:54 Abnormal lab findings: Abnormal Labs 10/09/17 10/09/17 10/09/17 11:39 11:39 11:39 WBC 3.4 L MCHC 31 L RDW [place] % (Auto) Lymph # Monocytes % (Manual) 12.0 H Lymphocytes # (Manual) 1.1 L POC ABG pH POC ABG pCO2 POC ABG pO2 Potassium 3.5 L Chloride 107.1 H Carbon Dioxide 21 L BUN Lactic Acid Alkaline Phosphatase Total Creatine Kinase 217 H Total Protein Albumin 10/09/17 10/09/17 10/09/17 12:42 14:05 14:44 WBC MCHC RDW [place] % (Auto) Lymph # Monocytes % (Manual) Lymphocytes # (Manual) POC ABG pH 7.346 L POC ABG pCO2 49.0 H POC ABG pO2 301 H Potassium Chloride Carbon Dioxide BUN Lactic Acid 2.80 H* 3.50 H* Alkaline Phosphatase Total Creatine Kinase Total Protein Albumin 10/09/17 10/10/17 10/10/17 15:39 05:23 05:23 WBC MCHC RDW 13.1 L [place] % (Auto) 11.6 H Lymph # 1.1 L Monocytes % (Manual) Lymphocytes # (Manual) POC ABG pH POC ABG pCO2 POC ABG pO2 Potassium Chloride 109.1 H Carbon Dioxide BUN 8 L Lactic Acid 2.50 H* Alkaline Phosphatase 34 L Total Creatine Kinase Total Protein 5.9 L Albumin 3.7 L 10/10/17 05:54 WBC MCHC RDW [place] % (Auto) Lymph # Monocytes % (Manual) Lymphocytes # (Manual) POC ABG pH 7.467 H POC ABG pCO2 POC ABG pO2 169 H Potassium Chloride Carbon Dioxide BUN Lactic Acid Alkaline Phosphatase Total Creatine Kinase Total Protein Albumin
--- NOTE | 2017-10-10 15:20 | Consultation ---
History of Present Illness - Reason for Consult Consult date: 10/10/17 - History of Present Illness with hx of status seizures poor control will recommend using vimpat added to the keppra review of record indicates the keppra dose was adequate for someone her age no sure of triggering factiors as the CT is normal to my personal review I will follow uo Medications and Allergies Allergies Allergy/AdvReac Type Severity Reaction Status Date / Time No Known Allergies Allergy Unverified 07/15/17 08:17 Home Medications Medication Instructions Recorded Confirmed Last Taken Type levETIRAcetam [Keppra TAB] 500 mg PO BID #40 tablet 07/16/17 10/09/17 Unknown Rx Active Meds: Active Medications Albuterol (Proventil) 2.5 mg IH TIDRT VALERIA Famotidine (Pepcid) 20 mg IV BID VALERIA Last Admin: 10/10/17 10:30 Dose: 20 mg Hydrophilic Ointment (Vaseline Lip Therapy) 1 applic TP Q2HR PRN PRN Reason: Dry Lips Propofol (Diprivan 10 Mg/Ml) 1,000 mg in 100 mls @ 2.449 mls/hr IV TITR VALERIA; Protocol Last Titration: 10/10/17 14:24 Dose: 0 mcg/kg/min, 0 mls/hr Dextrose/Sodium Chloride (D5ns) 1,000 mls @ 100 mls/hr IV DIRECT VALERIA Last Admin: 10/09/17 23:08 Dose: 100 mls/hr Levetiracetam (Keppra 1,000 Mg/Ns 0.75% 100ml) 1,000 mg in 100 mls @ 400 mls/ hr IV Q12HR VALERIA Last Admin: 10/10/17 10:00 Dose: 400 mls/hr Fentanyl Citrate (Fentanyl Drip Premix) 2,000 mcg in 100 mls @ 4.082 mls/hr IV TITR VALERIA; Protocol Last Titration: 10/10/17 14:16 Dose: 0 mcg/kg/hr, 0 mls/hr Morphine Sulfate (Morphine) 2 mg IV Q4H PRN PRN Reason: Pain, Moderate (4-6) Multi-Ingred Cream/Lotion/Oil/Oint (Artificial Tears Ophth Oint) 1 applic OU Q4HR PRN PRN Reason: Dry Eye(s) Sodium Chloride (Nacl 0.9% 500 Ml) 1 ml IV DIRECT VALERIA Sodium Chloride (Sodium Chloride Flush Syringe 10 Ml) 10 ml IV BID VALERIA Last Admin: 10/10/17 11:06 Dose: 10 ml Sodium Chloride (Sodium Chloride Flush Syringe 10 Ml) 10 ml IV PRN PRN PRN Reason: LINE FLUSH Exam - Constitutional Vitals: Temp Pulse Resp BP Pulse Ox 98.6 F 84 12 134/86 98 10/09/17 18:43 10/10/17 14:41 10/10/17 14:41 10/10/17 14:41 10/10/17 14:41 Results - Labs CBC & Chem 7: 10/10/17 05:23 10/10/17 05:23 Labs: Abnormal lab results 10/09/17 10/09/17 10/10/17 Range/Units 14:44 15:39 05:23 RDW 13.1 L (13.2-15.2) % [place] % (Auto) 11.6 H (0.0-7.3) % Lymph # 1.1 L (1.2-5.4) K/mm3 POC ABG pH (7.35-7.45) POC ABG pO2 (80-105) Chloride (98-107) mmol/L BUN (9-20) mg/dL Lactic Acid 3.50 H* 2.50 H* (0.7-2.0) mmol/L Alkaline Phosphatase (35-129) units/L Total Protein (6.3-8.2) g/dL Albumin (3.9-5) g/dL 10/10/17 10/10/17 Range/Units 05:23 05:54 RDW (13.2-15.2) % [place] % (Auto) (0.0-7.3) % Lymph # (1.2-5.4) K/mm3 POC ABG pH 7.467 H (7.35-7.45) POC ABG pO2 169 H (80-105) Chloride 109.1 H (98-107) mmol/L BUN 8 L (9-20) mg/dL Lactic Acid (0.7-2.0) mmol/L Alkaline Phosphatase 34 L (35-129) units/L Total Protein 5.9 L (6.3-8.2) g/dL Albumin 3.7 L (3.9-5) g/dL
[2017-10-10] MEDS ORDERED: ZOFRAN ONE ×2 (16:09→22:03)
[2017-10-10] MEDS ORDERED: ATIVAN IV PRN (16:54)
[2017-10-10] MEDS: PROVENTIL IH SCH (19:30)
[2017-10-10] MEDS ORDERED: VASELINE LIP THERAPY TP ONE (20:52)
[2017-10-10] MEDS ORDERED: ZOFRAN IV PRN (21:56)
--- NOTE | 2017-10-11 05:20 | Consultation ---
HISTORY OF PRESENT ILLNESS: This is a 21-year-old gentleman with a history of seizure and asthma, who comes into the ER with altered mental status and 30 minutes of ____. The patient reports he had been doing well, diagnosed with seizures approximately 2 years ago. They have had extensive workup at [facility] with that official cause noted. The patient did have a history of playing football while in school and had a significant concussion that resulted in him wearing a special helmet for concussion, which was reportedly concussion proof. The patient began having seizures at 19 and has had a workup at [facility] for this. Family reports the patient has not had seizures in a while and had been doing well until this episode. The patient was intubated for airway protection. Presently, the patient is sedated on vent. Family at bedside. PAST MEDICAL HISTORY: Asthma and seizures. PAST SURGICAL HISTORY: Left shoulder surgery. FAMILY HISTORY: Positive for hypertension and obesity. SOCIAL HISTORY: Never smokes. No tobacco or illicit drug use. No reported alcohol use. Lives at home. REVIEW OF SYSTEMS: Unable, but no precipitating event was reported by family. MEDICATIONS: As listed. PHYSICAL EXAMINATION: VITAL SIGNS: Blood pressure 116/70, 96, and 20. The patient on vent, sedated. The patient is on AC of 12, 500, 30%. PEEP of 6. GENERAL: male, lying in bed, sedated, orally intubated. NECK: Supple. CARDIOVASCULAR: Normal S1, S2. LUNGS: Distant, clear. ABDOMEN: Positive bowel sounds, soft. EXTREMITIES: Failed to reveal cyanosis, clubbing, or edema. DIAGNOSTIC DATA: Chest x-ray which was done today and reviewed showed no acute infiltrates or effusions. CT of the head, which was done on admission showed no evidence of bleed. LABORATORY DATA: White count of 5.3, hemoglobin of 13.4, and platelet count of 208. Lactic acid on admission was 2.80, now down to 1.90. Creatinine of 0.8, sodium is 143 and on admission was 134. CK of 217 on admission. IMPRESSION: 1. This gentleman with acute respiratory failure secondary to seizures. 2. 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 3. Electrolyte abnormalities. 4. History of asthma. PLAN: At this time, we will continue to wean to extubate. Wean off sedation as tolerated. Medication holiday as per protocol. Continue to monitor closely. I spoke to both parents in reference to status. We will continue to monitor for any recurrent seizures. Hopefully, we will be able to extubate him in the next 24 hours. Total critical care time 31 minutes including excluding discussion with family. JOB# [id number] ALMA/NTS
--- NOTE | 2017-10-11 07:54 | Consultation ---
HISTORY OF PRESENT ILLNESS: A 21-year-old black male seen in room CCU, bed-1 at the request of Dr. Smith. This patient was seen in the Emergency Room at [facility] after he was brought here going into status epilepticus. After he presented here, seizures remain very severe, had to be intubated, given Ativan and effectively heavily sedated to control the seizures. Discussion of the case with his family indicate he was taking his Keppra as ordered. He has a little bit of sleep problem, not extremely severe, but had not been sleeping well recently. Denies any alcohol or illicit drug use. He may have taken some doses of tramadol, not entirely clear about this but there were some indications he may have taken this, but the family member will check on it. He has taken medicines in the past. He has a long history of epilepsy without a good etiology. There is no family history in the family. There are four family members present in the room when I saw him and obtained history from. None of them think he had seizures previously or in the family. SOCIAL HISTORY: He does not work. He does not drink alcohol, does not smoke. PHYSICAL EXAMINATION: GENERAL: On examination, he is completely alert and actually is motioning to have his ET tube removed. I am going to make a comment about that later. NEUROLOGIC: He has full ocular movements, equal tone. Motor strength is good. Cranial nerves 2-12 intact. Psychology Professor strength is equal. No tremors or asterixis. He follows commands very well, very cooperative. EMERGENCY DEPARTMENT COURSE: Dr. Smith arrived as I was examining the patient, we had a bedside evaluation. I told Dr. Smith I felt the patient could be extubated at the way his appearance. He was then subsequently, the tube was deflated, ____ all the tube was extubated, this was done without any problem. He was atraumatic. He was completely alert and cooperative during this. At this point, he may be transferred to the ICU for observation. I did mention to the family his labs are quite unremarkable and his CT of the head is normal to my view. Etiology for why he went into seizures is not clear; however, I would recommend getting an MRI. JOB# [id number] MIRELA/RACHANA
--- NOTE | 2017-10-11 08:25 | XRay Report ---
FINAL REPORT EXAM: XR CHEST 1V AP HISTORY: follow up respiratory failure TECHNIQUE: AP portable view(s) of the chest obtained. PRIORS: 10/10/2017 FINDINGS: No mediastinal shift. Cardiac silhouette is not enlarged. No pneumothorax, effusion, or focal pulmonary opacity identified. No acute skeletal findings. IMPRESSION: Interval removal of endotracheal tube. No pneumothorax.
[2017-10-11] MEDS: PROVENTIL IH SCH ×3 (09:01→21:03)
[2017-10-11] MEDS: PEPCID IV SCH ×2 (09:31→22:59)
[2017-10-11] MEDS: KEPPRA 1,000 MG/NS 0.75% 100ML 1,000 MG/100 ML BAG IV SCH ×2 (09:32→22:58)
[2017-10-11] MEDS: HEPARIN SUB-Q SCH ×2 (10:00→18:07)
[2017-10-11] MEDS: SOLU-Medrol IV SCH ×2 (12:00→18:09)
--- NOTE | 2017-10-11 12:21 | XRay Report ---
FINAL REPORT PROCEDURE: XR TIBIA FIBULA 2V RT TECHNIQUE: RIGHT tibia and fibula radiographs, AP and lateral views. CPT 56226 HISTORY: pain, swelling COMPARISON: No prior studies are available for comparison. FINDINGS: Fracture (s) and/or Dislocation(s): None . Joint space(s): Normal . Soft tissues: Normal . Bone mineralization: Normal . Foreign bodies: None . IMPRESSION: Normal Examination.
--- NOTE | 2017-10-11 12:33 | Progress Note ---
Subjective Date of service: 10/11/17 Interval history: EEG and MRI are ordered and await the results... may initially raise po Keppra dose to 750 mg BID suspect he was being underdosed or compliance matter hard to tell for sure Thanks Objective - Vital Sign Vital Signs - 12hr 10/11/17 10/11/17 10/11/17 04:10 05:38 08:11 Temperature 98.9 F 99.2 F Pulse Rate 51 L 54 L 67 Pulse Rate [ Anterior Bilateral] Respiratory 18 18 Rate Respiratory Rate [Anterior Bilateral] Blood Pressure 132/73 126/79 Blood Pressure 132/73 [Left] O2 Sat by Pulse 100 100 97 Oximetry 10/11/17 09:01 Temperature Pulse Rate Pulse Rate [ 61 Anterior Bilateral] Respiratory Rate Respiratory 18 Rate [Anterior Bilateral] Blood Pressure Blood Pressure [Left] O2 Sat by Pulse Oximetry - Laboratory Findings CBC and BMP: 10/10/17 05:23 10/10/17 05:23 Abnormal Lab Findings: Abnormal Labs 10/09/17 10/09/17 10/09/17 11:39 11:39 11:39 WBC 3.4 L MCHC 31 L RDW [place] % (Auto) Lymph # Monocytes % (Manual) 12.0 H Lymphocytes # (Manual) 1.1 L POC ABG pH POC ABG pCO2 POC ABG pO2 Potassium 3.5 L Chloride 107.1 H Carbon Dioxide 21 L BUN Lactic Acid Alkaline Phosphatase Total Creatine Kinase 217 H Total Protein Albumin 10/09/17 10/09/17 10/09/17 12:42 14:05 14:44 WBC MCHC RDW [place] % (Auto) Lymph # Monocytes % (Manual) Lymphocytes # (Manual) POC ABG pH 7.346 L POC ABG pCO2 49.0 H POC ABG pO2 301 H Potassium Chloride Carbon Dioxide BUN Lactic Acid 2.80 H* 3.50 H* Alkaline Phosphatase Total Creatine Kinase Total Protein Albumin 10/09/17 10/10/17 10/10/17 15:39 05:23 05:23 WBC MCHC RDW 13.1 L [place] % (Auto) 11.6 H Lymph # 1.1 L Monocytes % (Manual) Lymphocytes # (Manual) POC ABG pH POC ABG pCO2 POC ABG pO2 Potassium Chloride 109.1 H Carbon Dioxide BUN 8 L Lactic Acid 2.50 H* Alkaline Phosphatase 34 L Total Creatine Kinase Total Protein 5.9 L Albumin 3.7 L 10/10/17 05:54 WBC MCHC RDW [place] % (Auto) Lymph # Monocytes % (Manual) Lymphocytes # (Manual) POC ABG pH 7.467 H POC ABG pCO2 POC ABG pO2 169 H Potassium Chloride Carbon Dioxide BUN Lactic Acid Alkaline Phosphatase Total Creatine Kinase Total Protein Albumin
--- NOTE | 2017-10-11 13:13 | Progress Note ---
Assessment and Plan - Patient Problems (1) Acute respiratory failure Current Visit: Yes Status: Acute Qualifiers: Respiratory failure complication: unspecified whether with hypoxia or hypercapnia Qualified Code(s): J96.00 - Acute respiratory failure, unspecified whether with hypoxia or hypercapnia (2) Status epilepticus Current Visit: Yes Status: Acute Subjective Interval history: awake Objective Vital Signs - 12hr 10/11/17 10/11/17 10/11/17 04:10 05:38 08:11 Temperature 98.9 F 99.2 F Pulse Rate 51 L 54 L 67 Pulse Rate [ Anterior Bilateral] Respiratory 18 18 Rate Respiratory Rate [Anterior Bilateral] Blood Pressure 132/73 126/79 Blood Pressure 132/73 [Left] O2 Sat by Pulse 100 100 97 Oximetry 10/11/17 09:01 Temperature Pulse Rate Pulse Rate [ 61 Anterior Bilateral] Respiratory Rate Respiratory 18 Rate [Anterior Bilateral] Blood Pressure Blood Pressure [Left] O2 Sat by Pulse Oximetry Constitutional: no acute distress Eyes: non-icteric ENT: oropharynx moist, other (lip swollen on top lt) Neck: supple Ascultation: Bilateral: clear Cardiovascular: regular rate and rhythm Gastrointestinal: normoactive bowel sounds, soft, non-distended Integumentary: normal Extremities: no cyanosis, no edema Neurologic: normal mental status, non-focal exam Psychiatric: mood appropriate CBC and BMP: 10/10/17 05:23 10/10/17 05:23 ABG, PT/INR, D-dimer: ABG POC ABG pH 7.467 (7.35-7.45) H 10/10/17 05:54 POC ABG pCO2 38.5 (35-45) 10/10/17 05:54 POC ABG pO2 169 (80-105) H 10/10/17 05:54 POC ABG HCO3 27.9 10/10/17 05:54 POC ABG Total CO2 29 10/10/17 05:54 POC ABG O2 Sat 100 10/10/17 05:54 Abnormal lab findings: Abnormal Labs 10/09/17 10/09/17 10/09/17 11:39 11:39 11:39 WBC 3.4 L MCHC 31 L RDW [place] % (Auto) Lymph # Monocytes % (Manual) 12.0 H Lymphocytes # (Manual) 1.1 L POC ABG pH POC ABG pCO2 POC ABG pO2 Potassium 3.5 L Chloride 107.1 H Carbon Dioxide 21 L BUN Lactic Acid Alkaline Phosphatase Total Creatine Kinase 217 H Total Protein Albumin 10/09/17 10/09/17 10/09/17 12:42 14:05 14:44 WBC MCHC RDW [place] % (Auto) Lymph # Monocytes % (Manual) Lymphocytes # (Manual) POC ABG pH 7.346 L POC ABG pCO2 49.0 H POC ABG pO2 301 H Potassium Chloride Carbon Dioxide BUN Lactic Acid 2.80 H* 3.50 H* Alkaline Phosphatase Total Creatine Kinase Total Protein Albumin 10/09/17 10/10/17 10/10/17 15:39 05:23 05:23 WBC MCHC RDW 13.1 L [place] % (Auto) 11.6 H Lymph # 1.1 L Monocytes % (Manual) Lymphocytes # (Manual) POC ABG pH POC ABG pCO2 POC ABG pO2 Potassium Chloride 109.1 H Carbon Dioxide BUN 8 L Lactic Acid 2.50 H* Alkaline Phosphatase 34 L Total Creatine Kinase Total Protein 5.9 L Albumin 3.7 L 10/10/17 05:54 WBC MCHC RDW [place] % (Auto) Lymph # Monocytes % (Manual) Lymphocytes # (Manual) POC ABG pH 7.467 H POC ABG pCO2 POC ABG pO2 169 H Potassium Chloride Carbon Dioxide BUN Lactic Acid Alkaline Phosphatase Total Creatine Kinase Total Protein Albumin
--- NOTE | 2017-10-11 15:47 | Progress Note ---
Assessment and Plan Assessment and plan: Breakthrough seizures. Girlfriend states he had not taken Keppra in 1-2 weeks Acute resp failure,was intubated. now extubated Pulmonology following. Swollen lips. May be due to intubation. Give solumedrol, Benadryl, pepcid right leg local swelling. Obtain X ray Medical non-compliance. Full code status History Interval history: breakthrough seizures after stopping Keppra for 2 weeks, Was intubated, now extubated c/o swollen lips Hospitalist Physical - Physical exam Narrative exam: GEN:Not in acute distress, Intubated HEENT: Normocephalic, atraumatic, Neck: supple, No JVD Lungs:Clear to auscultation bilaterally, no crackles, no wheeze Heart:S1 and S2 reg, no murmurs, rubs or gallop Abd:soft, non-tender, non-distended, Normal bowel sounds Ext: no edema, no clubbing or cyanosis Neuro: Intubated, sedated - Constitutional Vitals: Temp Pulse Resp BP Pulse Ox 99.2 F 84 18 127/72 99 10/11/17 13:23 10/11/17 14:15 10/11/17 14:15 10/11/17 13:23 10/11/17 13:23 General appearance: Present: well-nourished Results - Labs CBC & Chem 7: 10/10/17 05:23 10/10/17 05:23 Labs: Laboratory Last Values WBC 5.3 K/mm3 (4.5-11.0) 10/10/17 05:23 RBC 4.53 M/mm3 (3.65-5.03) 10/10/17 05:23 Hgb 13.4 gm/dl (11.8-15.2) 10/10/17 05:23 Hct 39.1 % (35.5-45.6) D 10/10/17 05:23 MCV 86 fl (84-94) 10/10/17 05:23 MCH 30 pg (28-32) 10/10/17 05:23 MCHC 34 % (32-34) 10/10/17 05:23 RDW 13.1 % (13.2-15.2) L 10/10/17 05:23 Plt Count 208 K/mm3 (140-440) 10/10/17 05:23 Lymph % (Auto) 21.0 % (13.4-35.0) 10/10/17 05:23 [place] % (Auto) 11.6 % (0.0-7.3) H 10/10/17 05:23 [place] % (Auto) 1.3 % (0.0-4.3) 10/10/17 05:23 Baso % (Auto) 0.5 % (0.0-1.8) 10/10/17 05:23 Lymph # 1.1 K/mm3 (1.2-5.4) L 10/10/17 05:23 [place] # 0.6 K/mm3 (0.0-0.8) 10/10/17 05:23 Eos # 0.1 K/mm3 (0.0-0.4) 10/10/17 05:23 Baso # 0.0 K/mm3 (0.0-0.1) 10/10/17 05:23 Add Manual Diff Complete 10/09/17 11:39 Total Counted 100 10/09/17 11:39 Seg Neutrophils % 65.6 % (40.0-70.0) 10/10/17 05:23 Seg Neuts % (Manual) 56.0 % (40.0-70.0) 10/09/17 11:39 Band Neutrophils % 0 % 10/09/17 11:39 Lymphocytes % (Manual) 32.0 % (13.4-35.0) 10/09/17 11:39 Reactive Lymphs % (Man) 0 % 10/09/17 11:39 Monocytes % (Manual) 12.0 % (0.0-7.3) H 10/09/17 11:39 Eosinophils % (Manual) 0 % (0.0-4.3) 10/09/17 11:39 Basophils % (Manual) 0 % (0.0-1.8) 10/09/17 11:39 Metamyelocytes % 0 % 10/09/17 11:39 Myelocytes % 0 % 10/09/17 11:39 Promyelocytes % 0 % 10/09/17 11:39 Blast Cells % 0 % 10/09/17 11:39 Nucleated RBC % Not Reportable 10/09/17 11:39 Seg Neutrophils # 3.5 K/mm3 (1.8-7.7) 10/10/17 05:23 Seg Neutrophils # Man 1.9 K/mm3 (1.8-7.7) 10/09/17 11:39 Band Neutrophils # 0.0 K/mm3 10/09/17 11:39 Lymphocytes # (Manual) 1.1 K/mm3 (1.2-5.4) L 10/09/17 11:39 Abs React Lymphs (Man) 0.0 K/mm3 10/09/17 11:39 Monocytes # (Manual) 0.4 K/mm3 (0.0-0.8) 10/09/17 11:39 Eosinophils # (Manual) 0.0 K/mm3 (0.0-0.4) 10/09/17 11:39 Basophils # (Manual) 0.0 K/mm3 (0.0-0.1) 10/09/17 11:39 Metamyelocytes # 0.0 K/mm3 10/09/17 11:39 Myelocytes # 0.0 K/mm3 10/09/17 11:39 Promyelocytes # 0.0 K/mm3 10/09/17 11:39 Blast Cells # 0.0 K/mm3 10/09/17 11:39 WBC Morphology Not Reportable 10/09/17 11:39 Hypersegmented Neuts Not Reportable 10/09/17 11:39 Hyposegmented Neuts Not Reportable 10/09/17 11:39 Hypogranular Neuts Not Reportable 10/09/17 11:39 Smudge Cells Not Reportable 10/09/17 11:39 Toxic Granulation Not Reportable 10/09/17 11:39 Toxic Vacuolation Not Reportable 10/09/17 11:39 Dohle Bodies Not Reportable 10/09/17 11:39 Pelger-Huet Anomaly Not Reportable 10/09/17 11:39 Artie Rods Not Reportable 10/09/17 11:39 Platelet Estimate Appears normal 10/09/17 11:39 Clumped Platelets Not Reportable 10/09/17 11:39 Plt Clumps, EDTA Not Reportable 10/09/17 11:39 Large Platelets Not Reportable 10/09/17 11:39 Giant Platelets Not Reportable 10/09/17 11:39 Platelet Satelliting Not Reportable 10/09/17 11:39 Plt Morphology Comment Not Reportable 10/09/17 11:39 RBC Morphology Normal 10/09/17 11:39 Dimorphic RBCs Not Reportable 10/09/17 11:39 Polychromasia Not Reportable 10/09/17 11:39 Hypochromasia Not Reportable 10/09/17 11:39 Poikilocytosis Not Reportable 10/09/17 11:39 Anisocytosis Not Reportable 10/09/17 11:39 Microcytosis Not Reportable 10/09/17 11:39 Macrocytosis Not Reportable 10/09/17 11:39 Spherocytes Not Reportable 10/09/17 11:39 Pappenheimer Bodies Not Reportable 10/09/17 11:39 Sickle Cells Not Reportable 10/09/17 11:39 Target Cells Not Reportable 10/09/17 11:39 Tear Drop Cells Not Reportable 10/09/17 11:39 Ovalocytes Not Reportable 10/09/17 11:39 Helmet Cells Not Reportable 10/09/17 11:39 [place] Bodies Not Reportable 10/09/17 11:39 [place] Rings Not Reportable 10/09/17 11:39 [place] Cells Not Reportable 10/09/17 11:39 Bite Cells Not Reportable 10/09/17 11:39 Crenated Cell Not Reportable 10/09/17 11:39 Elliptocytes Not Reportable 10/09/17 11:39 Acanthocytes (Spur) Not Reportable 10/09/17 11:39 Rouleaux Not Reportable 10/09/17 11:39 Hemoglobin C Crystals Not Reportable 10/09/17 11:39 Schistocytes Not Reportable 10/09/17 11:39 Malaria parasites Not Reportable 10/09/17 11:39 Bogdan Bodies Not Reportable 10/09/17 11:39 Hem Pathologist Commnt No 10/09/17 11:39 POC ABG pH 7.467 (7.35-7.45) H 10/10/17 05:54 POC ABG pCO2 38.5 (35-45) 10/10/17 05:54 POC ABG pO2 169 (80-105) H 10/10/17 05:54 POC ABG HCO3 27.9 10/10/17 05:54 POC ABG Total CO2 29 10/10/17 05:54 POC ABG O2 Sat 100 10/10/17 05:54 POC ABG Base Excess 4 10/10/17 05:54 FiO2 35 % 10/10/17 05:54 Sodium 143 mmol/L (137-145) 10/10/17 05:23 Potassium 3.7 mmol/L (3.6-5.0) 10/10/17 05:23 Chloride 109.1 mmol/L (98-107) H 10/10/17 05:23 Carbon Dioxide 26 mmol/L (22-30) 10/10/17 05:23 Anion Gap 12 mmol/L 10/10/17 05:23 BUN 8 mg/dL (9-20) L 10/10/17 05:23 Creatinine 0.8 mg/dL (0.8-1.5) 10/10/17 05:23 Estimated GFR > 60 ml/min 10/10/17 05:23 BUN/Creatinine Ratio 10 % 10/10/17 05:23 Glucose 86 mg/dL (75-100) 10/10/17 05:23 Lactic Acid 1.90 mmol/L (0.7-2.0) 10/09/17 17:10 Calcium 8.7 mg/dL (8.4-10.2) 10/10/17 05:23 Total Bilirubin 0.40 mg/dL (0.1-1.2) 10/10/17 05:23 AST 17 units/L (5-40) 10/10/17 05:23 ALT 12 units/L (7-56) 10/10/17 05:23 Alkaline Phosphatase 34 units/L (35-129) L 10/10/17 05:23 Total Creatine Kinase 217 units/L (55-170) H 10/09/17 11:39 CK-MB (CK-2) 1.3 ng/mL (0.0-4.0) 10/09/17 11:39 CK-MB (CK-2) Rel Index 0.5 (0-4) 10/09/17 11:39 Troponin T < 0.010 ng/mL (0.00-0.029) 10/09/17 11:39 Total Protein 5.9 g/dL (6.3-8.2) L 10/10/17 05:23 Albumin 3.7 g/dL (3.9-5) L 10/10/17 05:23 Albumin/Globulin Ratio 1.7 % 10/10/17 05:23 Urine Color Yellow (Yellow) 10/09/17 12:30 Urine Turbidity Clear (Clear) 10/09/17 12:30 Urine pH 6.0 (5.0-7.0) 10/09/17 12:30 Ur Specific [place] 1.023 (1.003-1.030) 10/09/17 12:30 Urine Protein 30 mg/dl mg/dL (Negative) 10/09/17 12:30 Urine Glucose (UA) Neg mg/dL (Negative) 10/09/17 12:30 Urine Ketones Neg mg/dL (Negative) 10/09/17 12:30 Urine Blood Neg (Negative) 10/09/17 12:30 Urine Nitrite Neg (Negative) 10/09/17 12:30 Urine Bilirubin Neg (Negative) 10/09/17 12:30 Urine Urobilinogen < 2.0 mg/dL (<2.0) 10/09/17 12:30 Ur Leukocyte Esterase Neg (Negative) 10/09/17 12:30 Urine WBC (Auto) 2.0 /HPF (0.0-6.0) 10/09/17 12:30 Urine RBC (Auto) < 1.0 /HPF (0.0-6.0) 10/09/17 12:30 Urine Bacteria (Auto) 1+ /HPF (Negative) 10/09/17 12:30 Hyaline Casts 3 /LPF 10/09/17 12:30 Urine Mucus Few /HPF 10/09/17 12:30 Urine Sperm Few /HPF (SOCIOCULTURAL ANTHROPOLOGY PROFESSOR) 10/09/17 12:30 Urine Opiates Screen Presumptive negative 10/09/17 12:30 Urine Methadone Screen Presumptive negative 10/09/17 12:30 Ur Barbiturates Screen Presumptive negative 10/09/17 12:30 Ur Phencyclidine Scrn Presumptive negative 10/09/17 12:30 Ur Amphetamines Screen Presumptive negative 10/09/17 12:30 U Benzodiazepines Scrn Presumptive negative 10/09/17 12:30 Urine Cocaine Screen Presumptive negative 10/09/17 12:30 U Marijuana (THC) Screen Presumptive positive 10/09/17 12:30 Drugs of Abuse Note Disclamer 10/09/17 12:30
[2017-10-11] MEDS: BENADRYL IV SCH ×3 (17:17→23:00)
[2017-10-11] MEDS: SODIUM CHLORIDE FLUSH SYRINGE 10 ML IV SCH ×2 (18:04→23:00)
[2017-10-11] MEDS: VIMPAT PO SCH (18:28)
--- NOTE | 2017-10-11 23:49 | Magnetic Resonance Report ---
FINAL REPORT PROCEDURE: MR BRAIN WO CON TECHNIQUE: Magnetic resonance imaging of the brain was performed without contrast material. HISTORY: seizures COMPARISON: No prior studies are available for comparison. FINDINGS: Skull base and calvarium: Normal. Paranasal sinuses: The visualized paranasal sinuses are clear. Cerebellum: No evidence of hemorrhage, ischemia or mass. Brainstem: No evidence of hemorrhage, ischemia or mass. Cerebrum: No evidence of hemorrhage, ischemia or mass. Ventricles: Normal in size and morphology for the patient's age. Pituitary gland and sella: Normal. Globes and orbits: Normal. Vasculature: Normal arterial and venous flow voids. Other: None. IMPRESSION: Normal Examination
[2017-10-12] MEDS: HEPARIN SUB-Q SCH (02:35)
[2017-10-12] MEDS: SOLU-Medrol IV SCH (03:50)
[2017-10-12] MEDS: BENADRYL IV SCH (05:36)
[2017-10-12] MEDS: D5NS 1,000 ML IV SCH (05:39)
[2017-10-12] MEDS: VIMPAT PO SCH (06:23)
[2017-10-12] MEDS: PROVENTIL IH SCH ×2 (07:09→13:16)
--- NOTE | 2017-10-12 08:36 | XRay Report ---
AP CHEST: HISTORY: Follow up respiratory failure AP view of the chest demonstrates a normal mediastinal and cardiac contour with clear lungs and normal bony and soft tissue structures. IMPRESSION: Unremarkable AP chest.
[2017-10-12 08:57] VITALS: BP 121/64
--- NOTE | 2017-10-12 10:48 | Discharge Summary ---
Providers - Providers Date of Admission: 10/09/17 16:38 Date of discharge: 10/12/17 Attending physician: MERCEDES JOYNER 10/09/17 16:38 Consult to Dietitian/Nutrition [CONS] Routine Physician Instructions: Reason For Exam: Reason for Consult: Write/Manage TPN/PPN 10/09/17 16:41 Consult to Physician [CONS] Routine Comment: OFFICE NOTIFIED VIGNESH Sood Consulting Provider: ELBA PEACE Physician Instructions: Reason For Exam: status epilepticus 10/09/17 16:58 Consult to Physician [CONS] Routine Comment: Consulting Provider: IVORY BRUSH Physician Instructions: Reason For Exam: Status epilepticus 10/09/17 17:20 Consult to Dietitian/Nutrition [CONS] Routine Physician Instructions: Reason For Exam: Tube feeding Reason for Consult: Write/Manage Tube Feeding 10/10/17 07:40 Consult to Physician [CONS] Routine Comment: Saw patient @ 15:45- LXM Consulting Provider: JOHN RENDON Physician Instructions: Reason For Exam: Seizures 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 2.Follow up with Neurologist in 3-5 days. 3.No driving for 6 months and until cleared by Physician, because of breakthrough seizures. Follow up with: PRIMARY CARE,MD [Primary Care Provider] - 3-5 Days Forms: Accompanied Note Prescriptions: diphenhydrAMINE [Benadryl CAP] 25 mg PO Q8HR #10 capsule Famotidine [Pepcid] 20 mg PO BID #14 tablet Lacosamide [Vimpat] 50 mg PO Q12H #60 tablet
--- NOTE | 2017-10-12 13:26 | Progress Note ---
Assessment and Plan Imp: 1. Seizures d/o with status epilepticus 2. Acute respiratory failure, hypoxia 2/2 above 3. Lactic acidosis 2/2 above 4. Canker sore due to ET tube -> lip edema -> NO evidence of stridor or angioedema Rec: 1. Agree w/ course of prednisone 2. CXR clear/pulm-stroud stable for d/c 3. AEDs per neurology/primary 4. Will sign off Plan of care reviewed w/ patient/family, they understand/agree Subjective Date of service: 10/12/17 Principal diagnosis: Acute respiratory failure Interval history: No events. Awake, alert. Lip swelling slightly better. No SOB, wheezing, stridor , etc. On RA. Active Medications Albuterol (Proventil) 2.5 mg IH TIDRT [facility] Last Admin: 10/12/17 13:16 Dose: Not Given Diphenhydramine HCl (Benadryl) 25 mg IV Q6H [facility] Last Admin: 10/12/17 05:36 Dose: Not Given Famotidine (Pepcid) 20 mg IV BID [facility] Last Admin: 10/11/17 22:59 Dose: 20 mg Heparin Sodium (Porcine) (Heparin) 5,000 unit SUB-Q Q8H [facility] Last Admin: 10/12/17 02:35 Dose: Not Given Hydrophilic Ointment (Vaseline Lip Therapy) 1 applic TP Q2HR PRN PRN Reason: Dry Lips Last Admin: 10/10/17 21:52 Dose: 1 applic Propofol (Diprivan 10 Mg/Ml) 1,000 mg in 100 mls @ 2.449 mls/hr IV TITR [facility]; Protocol Last Titration: 10/10/17 14:24 Dose: 0 mcg/kg/min, 0 mls/hr Dextrose/Sodium Chloride (D5ns) 1,000 mls @ 100 mls/hr IV DIRECT [facility] Last Admin: 10/12/17 05:39 Dose: 100 mls/hr Levetiracetam (Keppra 1,000 Mg/Ns 0.75% 100ml) 1,000 mg in 100 mls @ 400 mls/ hr IV Q12HR [facility] Last Admin: 10/11/17 22:58 Dose: 400 mls/hr Fentanyl Citrate (Fentanyl Drip Premix) 2,000 mcg in 100 mls @ 4.082 mls/hr IV TITR [facility]; Protocol Last Titration: 10/10/17 14:16 Dose: 0 mcg/kg/hr, 0 mls/hr Lacosamide (Vimpat) 50 mg PO Q12H [facility] Last Admin: 10/12/17 06:23 Dose: 50 mg Lorazepam (Ativan) 1 mg IV Q1H PRN PRN Reason: Seizures Methylprednisolone Sodium Succinate (Solu-Medrol) 80 mg IV Q8H [facility] Last Admin: 10/12/17 03:50 Dose: 80 mg Morphine Sulfate (Morphine) 2 mg IV Q4H PRN PRN Reason: Pain, Moderate (4-6) Last Admin: 10/11/17 08:51 Dose: 2 mg Multi-Ingred Cream/Lotion/Oil/Oint (Artificial Tears Ophth Oint) 1 applic OU Q4HR PRN PRN Reason: Dry Eye(s) Ondansetron HCl (Zofran) 4 mg IV Q4H PRN PRN Reason: Nausea And Vomiting Sodium Chloride (Nacl 0.9% 500 Ml) 1 ml IV DIRECT [facility] Sodium Chloride (Sodium Chloride Flush Syringe 10 Ml) 10 ml IV BID [facility] Last Admin: 10/11/17 23:00 Dose: 10 ml Sodium Chloride (Sodium Chloride Flush Syringe 10 Ml) 10 ml IV PRN PRN PRN Reason: LINE FLUSH Objective Vital Signs - 12hr 10/12/17 10/12/17 10/12/17 05:11 07:09 07:17 Temperature 98.1 F Pulse Rate Pulse Rate [ 65 66 Anterior Bilateral] Respiratory 18 Rate Respiratory 18 18 Rate [Anterior Bilateral] Blood Pressure 111/63 O2 Sat by Pulse Oximetry 10/12/17 07:38 Temperature 97.9 F Pulse Rate 47 L Pulse Rate [ Anterior Bilateral] Respiratory 18 Rate Respiratory Rate [Anterior Bilateral] Blood Pressure 121/64 O2 Sat by Pulse 98 Oximetry Constitutional: no acute distress, alert Eyes: non-icteric ENT: oropharynx moist, other (lip swollen on top lt, with canker sore on inner part of lip from ET tube) Neck: supple Ascultation: Bilateral: clear Cardiovascular: regular rate and rhythm (no mrg) Gastrointestinal: normoactive bowel sounds, soft, non-distended Integumentary: normal Extremities: no cyanosis, no edema Neurologic: normal mental status, non-focal exam, pupils equal and round, CN II- XII normal Psychiatric: mood appropriate, affect normal CBC and BMP: 10/10/17 05:23 10/10/17 05:23 ABG, PT/INR, D-dimer: ABG POC ABG pH 7.467 (7.35-7.45) H 10/10/17 05:54 POC ABG pCO2 38.5 (35-45) 10/10/17 05:54 POC ABG pO2 169 (80-105) H 10/10/17 05:54 POC ABG HCO3 27.9 10/10/17 05:54 POC ABG Total CO2 29 10/10/17 05:54 POC ABG O2 Sat 100 10/10/17 05:54 Abnormal lab findings: Abnormal Labs 10/09/17 10/09/17 10/09/17 11:39 11:39 11:39 WBC 3.4 L MCHC 31 L RDW [place] % (Auto) Lymph # Monocytes % (Manual) 12.0 H Lymphocytes # (Manual) 1.1 L POC ABG pH POC ABG pCO2 POC ABG pO2 Potassium 3.5 L Chloride 107.1 H Carbon Dioxide 21 L BUN Lactic Acid Alkaline Phosphatase Total Creatine Kinase 217 H Total Protein Albumin 10/09/17 10/09/17 10/09/17 12:42 14:05 14:44 WBC MCHC RDW [place] % (Auto) Lymph # Monocytes % (Manual) Lymphocytes # (Manual) POC ABG pH 7.346 L POC ABG pCO2 49.0 H POC ABG pO2 301 H Potassium Chloride Carbon Dioxide BUN Lactic Acid 2.80 H* 3.50 H* Alkaline Phosphatase Total Creatine Kinase Total Protein Albumin 10/09/17 10/10/17 10/10/17 15:39 05:23 05:23 WBC MCHC RDW 13.1 L [place] % (Auto) 11.6 H Lymph # 1.1 L Monocytes % (Manual) Lymphocytes # (Manual) POC ABG pH POC ABG pCO2 POC ABG pO2 Potassium Chloride 109.1 H Carbon Dioxide BUN 8 L Lactic Acid 2.50 H* Alkaline Phosphatase 34 L Total Creatine Kinase Total Protein 5.9 L Albumin 3.7 L 10/10/17 05:54 WBC MCHC RDW [place] % (Auto) Lymph # Monocytes % (Manual) Lymphocytes # (Manual) POC ABG pH 7.467 H POC ABG pCO2 POC ABG pO2 169 H Potassium Chloride Carbon Dioxide BUN Lactic Acid Alkaline Phosphatase Total Creatine Kinase Total Protein Albumin Chest x-ray: report reviewed, image reviewed
== END 2017-10-12 15:41 | disposition home or self-care (01) | DRG 208 ==
LOC: ED 10:46 → CC1 16:38 → 4A 10-10 20:54
PROVIDERS: ADMIT Internal Medicine; ATTEND Internal Medicine
PROC: 4A033R1 Measurement of Arterial Saturation, Peripheral, Percutaneous Approach (ICD-10-PCS; principal; 2017-10-09)
PROC: 5A1945Z Respiratory Ventilation, 24-96 Consecutive Hours (ICD-10-PCS; 2017-10-09)
PROC: 0BH17EZ Insertion of Endotracheal Airway into Trachea, Via Natural or Artificial Opening (ICD-10-PCS; 2017-10-09)
DX: J96.01 Acute respiratory failure with hypoxia (principal); E87.2 Acidosis; G40.901 Epilepsy, unspecified, not intractable, with status epilepticus; G43.909 Migraine, unspecified, not intractable, without status migrainosus; J45.909 Unspecified asthma, uncomplicated; R22.41 Localized swelling, mass and lump, right lower limb; E87.6 Hypokalemia; Z79.899 Other long term (current) drug therapy; Z91.14 Patient's other noncompliance with medication regimen
CPT/HCPCS: 31500; 36415; 70450; 70551; 71045; 80053; 80307; 81001; 82140; 82550; 82553; 82803; 84484; 85007; 85025; 87070; 87205; 93005; 93010; 93970; 94002; 94003; 94640; 99291; J0330; J1200; J1644; J1953; J2060; J2270; J2405; J2704; J2930; J3010; J3480; J7030; J7042

== ENCOUNTER 2018-02-19 09:21 | Emergency (ER) | payer OTHER ==
[2018-02-19] MEDS ORDERED: ALUM-MAG HYDROX-SIMETH 200-200-20MG/5ML PO ONE (11:02)
[2018-02-19] MEDS ORDERED: TORADOL IVP ONE (11:02)
[2018-02-19] MEDS ORDERED: ZOFRAN IV ONE (11:02)
[2018-02-19] MEDS ORDERED: BENTYL PO ONE (11:02)
[2018-02-19] MEDS ORDERED: LIDOCAINE VISCOUS 2% PO ONE (11:02)
[2018-02-19] MEDS ORDERED: BENADRYL IV ONE (11:02)
[2018-02-19] MEDS ORDERED: NACL 0.9% 1000 ML 1,000 ML IV ONE ×2 (11:02→12:22)
--- NOTE | 2018-02-19 11:02 | Emergency Department Report ---
ED N/V/D HPI - General Chief complaint: Nausea/Vomiting/Diarrhea Stated complaint: VOMITING/HEADACHE Time Seen by Provider: 02/19/18 10:59 Source: patient, family Mode of arrival: Ambulatory Limitations: No Limitations - History of Present Illness Initial comments: This is a 22-year-old male came to the emergency room with his family member complaint abdominal pain, nausea vomiting and diarrhea that started at 6 AM this morning. Patient denies drinking alcohol. He admits to smoking marijuana. He denies taking any other drugs. Pain is located general abdomen with nausea and vomiting in but no blood in vomitus or stool. Pain is 7-10 cramp. She is like something is crawling in the stomach. Denies any fever or chills. Denies any urinary burning, frequency or urgency. Denies any back pain. Denies any flank pain. MD complaint: nausea, vomiting, diarrhea, abdominal pain -: This morning Description of Vomiting: watery Description of Diarrhea: water Associated Abdominal Pain: Yes Location: diffuse Radiation: none Severity: severe Pain Scale: 10 Quality: cramping Consistency: constant Improves with: none Worsens with: none Context: other (unknown) Associated Symptoms: denies: myalgias, chest pain, cough, diaphoresis, fever/chills, headaches, loss of appetite, malaise, nausea/vomiting, rash, dysuria, shortness of breath, syncope, weakness - Related Data Previous Rx's Medication Instructions Recorded Last Taken Type levETIRAcetam [Keppra TAB] 500 mg PO BID #40 tablet 07/16/17 Unknown Rx Famotidine [Pepcid] 20 mg PO BID #14 tablet 10/12/17 Unknown Rx Lacosamide [Vimpat] 50 mg PO Q12H #60 tablet 10/12/17 Unknown Rx Prednisone [predniSONE 5 mg (6-Day 5 mg PO .TAPER #1 tab.ds.pk 10/12/17 Unknown Rx Pack, 21 Tabs)] diphenhydrAMINE [Benadryl CAP] 25 mg PO Q8HR #10 capsule 10/12/17 Unknown Rx Cyclobenzaprine [Flexeril] 10 mg PO BID PRN #20 tablet 12/19/17 Unknown Rx Menthol/Camphor [[place] 1 applicatio TP TID PRN #1 tube 12/19/17 Unknown Rx Ointment] Naproxen [Naprosyn] 500 mg PO BID PRN #30 tablet 12/19/17 Unknown Rx Dicyclomine [Bentyl] 20 mg PO Q8H 3 Days #9 bottle 02/19/18 Unknown Rx Ondansetron [Zofran ODT TAB] 8 mg PO Q8HR PRN #12 tab.rapdis 02/19/18 Unknown Rx Allergies Allergy/AdvReac Type Severity Reaction Status Date / Time No Known Allergies Allergy Verified 02/19/18 09:23 ED Review of Systems ROS: Stated complaint: VOMITING/HEADACHE Other details as noted in HPI Constitutional: denies: chills, fever Eyes: denies: eye pain, eye discharge ENT: denies: ear pain, throat pain, congestion Cardiovascular: denies: chest pain, palpitations, dyspnea on exertion, edema, syncope, paroxysmal nocturnal dyspnea Gastrointestinal: abdominal pain, nausea, vomiting, diarrhea. denies: constipation, hematemesis, melena, hematochezia Genitourinary: denies: dysuria, hematuria Musculoskeletal: denies: back pain, joint swelling, arthralgia, myalgia Skin: denies: rash Neurological: denies: headache, weakness, numbness, paresthesias, confusion, abnormal gait, vertigo Psychiatric: denies: anxiety ED Past Medical Hx - Past Medical History Previous Medical History?: Yes Hx Headaches / Migraines: Yes (complex) Hx Seizures: Yes Hx Asthma: Yes - Surgical History Past Surgical History?: Yes Additional Surgical History: left shoulder - Family History Family history: hypertension - Social History Smoking Status: Never Smoker Substance Use Type: Alcohol, Marijuana - Medications Home Medications: Home Medications Medication Instructions Recorded Confirmed Last Taken Type levETIRAcetam [Keppra TAB] 500 mg PO BID #40 tablet 07/16/17 10/09/17 Unknown Rx Famotidine [Pepcid] 20 mg PO BID #14 tablet 10/12/17 Unknown Rx Lacosamide [Vimpat] 50 mg PO Q12H #60 tablet 10/12/17 Unknown Rx Prednisone [predniSONE 5 mg (6-Day 5 mg PO .TAPER #1 tab.ds.pk 10/12/17 Unknown Rx Pack, 21 Tabs)] diphenhydrAMINE [Benadryl CAP] 25 mg PO Q8HR #10 capsule 10/12/17 Unknown Rx Cyclobenzaprine [Flexeril] 10 mg PO BID PRN #20 tablet 12/19/17 Unknown Rx Menthol/Camphor [[place] 1 applicatio TP TID PRN #1 tube 12/19/17 Unknown Rx Ointment] Naproxen [Naprosyn] 500 mg PO BID PRN #30 tablet 12/19/17 Unknown Rx Dicyclomine [Bentyl] 20 mg PO Q8H 3 Days #9 bottle 02/19/18 Unknown Rx Ondansetron [Zofran ODT TAB] 8 mg PO Q8HR PRN #12 tab.rapdis 02/19/18 Unknown Rx ED Physical Exam - General Limitations: No Limitations General appearance: alert, in no apparent distress - Head Head exam: Present: atraumatic, normocephalic, normal inspection, other (normal exam) - Eye Eye exam: Present: normal appearance, PERRL, EOMI Pupils: Present: normal accommodation - ENT ENT exam: Present: normal exam, normal orophraynx, mucous membranes moist, TM's normal bilaterally, normal external ear exam - Neck Neck exam: Present: normal inspection, full ROM, other (no C-spine tenderness). Absent: tenderness, lymphadenopathy - Respiratory Respiratory exam: Present: normal lung sounds bilaterally. Absent: respiratory distress, wheezes, rales, rhonchi, chest wall tenderness, accessory muscle use, decreased breath sounds, prolonged expiratory - Cardiovascular Cardiovascular Exam: Present: regular rate, normal rhythm, normal heart sounds - GI/Abdominal GI/Abdominal exam: Present: soft, normal bowel sounds. Absent: distended, tenderness, guarding, rebound, rigid, organomegaly, mass, bruit, pulsatile mass, hernia - Extremities Exam Extremities exam: Present: normal inspection, full ROM, normal capillary refill, other (No cce. + 2 pulses in all extremities, no neurovascular compromise). Absent: tenderness, pedal edema, joint swelling, calf tenderness - Back Exam Back exam: Present: normal inspection, full ROM, other (ambulates without any difficulties). Absent: tenderness, CVA tenderness (R), CVA tenderness (L), muscle spasm, paraspinal tenderness, vertebral tenderness, rash noted - Neurological Exam Neurological exam: Present: alert, oriented X3, normal gait, reflexes normal. Absent: motor sensory deficit - Psychiatric Psychiatric exam: Present: normal affect, normal mood - Skin Skin exam: Present: warm, dry, intact, normal color. Absent: rash ED Course Vital Signs 02/19/18 02/19/18 09:23 13:10 Temperature 97.7 F Pulse Rate 71 Respiratory 20 18 Rate Blood Pressure 134/94 O2 Sat by Pulse 100 Oximetry - Reevaluation(s) Reevaluation #1: 02/19/18 11:25 Patient given Toradol 30 mg IV, Zofran 8 mg IV, Maalox 30 mL by mouth, lidocaine 15 mL by mouth and 1 L of normal saline . Pain is still persistent. Inpatient for Bentyl. Patient said he still have an abdominal pain. First liter of normal saline still infusing. will give second liter of IV fluid and consider other medication. Reevaluation #2: 02/19/18 12:27 Patient to receive another liter of IV fluid, morphine 4 mg IV, Zofran 4 mg IV and Ativan 1 mg IV. He is awaits then abdominal x-ray Reevaluation #3: 02/19/18 14:56 Patient reports that he is feeling a lot better. He said his mom is on her way to get him. Denies any nausea vomiting or diarrhea or abdominal pain. ED Medical Decision Making - Radiology Data Radiology results: report reviewed X-ray of abdomen 2 views dictated by radiologist and report reviewed by myself. No acute findings. Findings [address] [address] XRay Report Signed Patient: LM JOHNSON MR#: [id number] : 1995 Acct:[id number] Age/Sex: 22 / M ADM Date: 02/19/18 Loc: ED Attending Dr: Ordering Physician: MARCIN SU Date of Service: 02/19/18 Procedure(s): XR abdomen 2V Accession Number(s): [id number] cc: MARCIN SU Fluoro Time In Minutes: ABDOMEN TWO VIEWS: 02/19/18 12:21:00 CLINICAL: Nausea, vomiting and diarrhea. FINDINGS: Supine upright views demonstrate a relatively gasless abdomen. Mild air in the stomach. Mild gas in the rectum. No distended bowel and no air-fluid levels. No mass or suspicious calcifications. The bones and soft tissues are normal. IMPRESSION: Negative abdomen. Transcribed By: REF Dictated By: JOHN GALDAMEZ MD Electronically Authenticated By: JOHN GALDAMEZ MD Signed Date/Time: 02/19/181245 DD/ 44 TD/TT: 02/19/181245 - Medical Decision Making This is a 2-year-old male here with Catapres induced hyperemesis, diarrhea and abdominal pain. Patient was given Zofran 8 mg IV, Toradol 30 mg IV, Benadryl 50 mg by mouth. He was given Maalox and lidocaine which he cirrhosis. Normal saline IV fluid 2 L. He was later given morphine 4 mg IV, Ativan 1 mg IV and Zofran 4 mg IV which relieved his pain, nausea vomiting and diarrhea. Patient states a lot better without any pain. Vital signs stable afebrile and patient discharged from ED with family in stable condition with prescription for Zofran and Bentyl. He is to follow-up with his primary care physician in 3 days or return to the emergency room if his symptoms or symptoms. Cannabis Cessation encouraged - Differential Diagnosis ANDREW, constipation, simple nvdinduced by Cannibas versus alcohol Critical care attestation.: If time is entered above; I have spent that time in minutes in the direct care of this critically ill patient, excluding procedure time. ED Disposition Clinical Impression: Cannabinoid hyperemesis syndrome Abdominal pain Qualifiers: Abdominal location: generalized Qualified Code(s): R10.84 - Generalized abdominal pain Disposition: DC-01 TO HOME OR SELFCARE Is pt being admited?: No Does the pt Need Aspirin: No Condition: Stable Instructions: Cannabis Abuse (ED), Acute Abdominal Pain (ED), Acute Nausea and Vomiting (ED), Acute Diarrhea (ED) Additional Instructions: Please increase her fluid intake and avoid smoking marijuana. Chronic marijuana smoking can lead to nausea, vomiting, abdominal pain, seizure disorder. Take nausea medication as prescribed Follow-up the primary care doctor as prescribed Referrals: PRIMARY MD RACHEL [Primary Care Provider] - 02/22/18 [facility] [Outside] - 02/22/18 Forms: Work/School Release Form(ED), Accompanied Note
[2018-02-19] MEDS ORDERED: BENTYL ONE (11:21)
[2018-02-19] MEDS ORDERED: MORPHINE IV ONE (12:22)
[2018-02-19] MEDS ORDERED: ATIVAN IV ONE (12:23)
--- NOTE | 2018-02-19 12:51 | XRay Report ---
ABDOMEN TWO VIEWS: 02/19/18 12:21:00 CLINICAL: Nausea, vomiting and diarrhea. FINDINGS: Supine upright views demonstrate a relatively gasless abdomen. Mild air in the stomach. Mild gas in the rectum. No distended bowel and no air-fluid levels. No mass or suspicious calcifications. The bones and soft tissues are normal. IMPRESSION: Negative abdomen.
[2018-02-19 15:47] VITALS: BP 121/59
== END 2018-02-19 15:46 | disposition home or self-care (01) ==
LOC: ED 09:21
DX: F12.188 Cannabis abuse with other cannabis-induced disorder (principal); R10.84 Generalized abdominal pain; R19.7 Diarrhea, unspecified; G43.909 Migraine, unspecified, not intractable, without status migrainosus; J45.909 Unspecified asthma, uncomplicated
CPT/HCPCS: 74019; 96361; 96374; 96375; 99283; J1200; J1885; J2060; J2270; J2405; J7030

== ENCOUNTER 2018-08-22 13:22 | Emergency (ER) | payer OTHER ==
[2018-08-22] MEDS ORDERED: NACL 0.9% 1000 ML 1,000 ML IV ONE (13:32)
[2018-08-22] MEDS ORDERED: ZOFRAN IV ONE (13:32)
[2018-08-22 13:34] VITALS: BP 149/92
--- NOTE | 2018-08-22 14:25 | Emergency Department Report ---
ED N/V/D HPI - General Chief complaint: Nausea/Vomiting/Diarrhea Stated complaint: VOMITING Time Seen by Provider: 08/22/18 13:37 Source: patient Mode of arrival: Ambulatory Limitations: No Limitations - History of Present Illness Initial comments: This is a 22-year-old male nontoxic, well nourished in appearance, no acute signs of distress presents to the ED with c/o of nausea and vomiting 1 day. Patient describes vomiting as food content. Patient denies any abdominal pain, chest pain, short of breath, fever, chills, headache, stiff neck, numbness or tingling. Patient denies any diarrhea or constipation. Patient denies any recent travels. Patient denies any drug allergies significant past medical history. MD complaint: nausea, vomiting -: This morning Description of Vomiting: food contents Associated Abdominal Pain: No Pain Scale: 0 Improves with: none Worsens with: none Associated Symptoms: nausea/vomiting. denies: myalgias, chest pain, cough, diaphoresis, fever/chills, headaches, loss of appetite, malaise, rash, dysuria, shortness of breath, syncope, weakness - Related Data Previous Rx's Medication Instructions Recorded Last Taken Type levETIRAcetam [Keppra TAB] 500 mg PO BID #40 tablet 07/16/17 Unknown Rx Famotidine [Pepcid] 20 mg PO BID #14 tablet 10/12/17 Unknown Rx Lacosamide [Vimpat] 50 mg PO Q12H #60 tablet 10/12/17 Unknown Rx Prednisone [predniSONE 5 mg (6-Day 5 mg PO .TAPER #1 tab.ds.pk 10/12/17 Unknown Rx Pack, 21 Tabs)] diphenhydrAMINE [Benadryl CAP] 25 mg PO Q8HR #10 capsule 10/12/17 Unknown Rx Cyclobenzaprine [Flexeril] 10 mg PO BID PRN #20 tablet 12/19/17 Unknown Rx Menthol/Camphor [[place] 1 applicatio TP TID PRN #1 tube 12/19/17 Unknown Rx Ointment] Naproxen [Naprosyn] 500 mg PO BID PRN #30 tablet 12/19/17 Unknown Rx Dicyclomine [Bentyl] 20 mg PO Q8H 3 Days #9 bottle 01/11/19 Unknown Rx Ondansetron [Zofran ODT TAB] 8 mg PO Q8HR PRN #12 tab.rapdis 02/19/18 Unknown Rx Allergies Allergy/AdvReac Type Severity Reaction Status Date / Time No Known Allergies Allergy Verified 02/19/18 09:23 ED Review of Systems ROS: Stated complaint: VOMITING Other details as noted in HPI Constitutional: denies: chills, fever Eyes: denies: eye pain, eye discharge, vision change ENT: denies: ear pain, throat pain Respiratory: denies: cough, shortness of breath, wheezing Cardiovascular: denies: chest pain, palpitations Endocrine: no symptoms reported Gastrointestinal: nausea, vomiting. denies: abdominal pain, diarrhea, constipation, hematemesis, melena, hematochezia Genitourinary: denies: urgency, dysuria Musculoskeletal: denies: back pain, joint swelling, arthralgia Skin: denies: rash, lesions Neurological: denies: headache, weakness, paresthesias Psychiatric: denies: anxiety, depression Hematological/Lymphatic: denies: easy bleeding, easy bruising ED Past Medical Hx - Past Medical History Hx Headaches / Migraines: Yes (complex) Hx Seizures: Yes Hx Asthma: Yes - Surgical History Additional Surgical History: left shoulder - Social History Smoking Status: Never Smoker Substance Use Type: Alcohol, Marijuana - Medications Home Medications: Home Medications Medication Instructions Recorded Confirmed Last Taken Type levETIRAcetam [Keppra TAB] 500 mg PO BID #40 tablet 18 10/09/17 Unknown Rx Famotidine [Pepcid] 20 mg PO BID #14 tablet 10/12/17 Unknown Rx Lacosamide [Vimpat] 50 mg PO Q12H #60 tablet 10/12/17 Unknown Rx Prednisone [predniSONE 5 mg (6-Day 5 mg PO .TAPER #1 tab.ds.pk 10/12/17 Unknown Rx Pack, 21 Tabs)] diphenhydrAMINE [Benadryl CAP] 25 mg PO Q8HR #10 capsule 10/12/17 Unknown Rx Cyclobenzaprine [Flexeril] 10 mg PO BID PRN #20 tablet 12/19/17 Unknown Rx Menthol/Camphor [[place] 1 applicatio TP TID PRN #1 tube 12/19/17 Unknown Rx Ointment] Naproxen [Naprosyn] 500 mg PO BID PRN #30 tablet 12/19/17 Unknown Rx Dicyclomine [Bentyl] 20 mg PO Q8H 3 Days #9 bottle 02/19/18 Unknown Rx Ondansetron [Zofran ODT TAB] 8 mg PO Q8HR PRN #12 tab.rapdis 02/19/18 Unknown Rx ED Physical Exam - General Limitations: No Limitations General appearance: alert, in no apparent distress - Head Head exam: Present: atraumatic, normocephalic - Neck Neck exam: Present: normal inspection, full ROM. Absent: tenderness, meningismus, lymphadenopathy - Respiratory Respiratory exam: Present: normal lung sounds bilaterally. Absent: respiratory distress, wheezes, rales, rhonchi, stridor, chest wall tenderness, accessory muscle use, decreased breath sounds, prolonged expiratory - Cardiovascular Cardiovascular Exam: Present: regular rate, normal rhythm, normal heart sounds. Absent: bradycardia, tachycardia, irregular rhythm, systolic murmur, diastolic murmur, rubs, gallop - GI/Abdominal GI/Abdominal exam: Present: soft, normal bowel sounds. Absent: distended, tenderness, guarding, rebound, rigid, diminished bowel sounds, hyperactive bowel sounds, hypoactive bowel sounds - Extremities Exam Extremities exam: Present: normal inspection, full ROM - Back Exam Back exam: Present: normal inspection, full ROM. Absent: tenderness, CVA tenderness (R), CVA tenderness (L), muscle spasm, paraspinal tenderness, vertebral tenderness, rash noted - Neurological Exam Neurological exam: Present: alert, oriented X3, normal gait - Psychiatric Psychiatric exam: Present: normal affect, normal mood - Skin Skin exam: Present: warm, dry, intact, normal color. Absent: rash ED Course Vital Signs 08/22/18 08/22/18 13:31 14:05 Temperature 98.1 F Pulse Rate 72 Respiratory 18 16 Rate Blood Pressure 149/92 O2 Sat by Pulse 100 Oximetry - Reevaluation(s) Reevaluation #1: 08/22/18 14:25 Patient is speaking in full sentences with no signs of distress noted. ED Medical Decision Making - Lab Data Result diagrams: 08/22/18 14:27 - Medical Decision Making This is a 22-year-old male that presents with nausea and vomiting. Patient is stable and was examined by me. There is no abdominal tenderness. Negative signs of symptoms of appendicitis. Labs obtained. Patient did receive 1 L of normal saline with nausea medication but I was unable to reexamine patient as he is stated that he wants to leave. I tried to perform a by mouth challenge the patient refused. KUB abdomen xray has been ordered but patient refused. P sandra stated he has to leave. I instructed and educated patient of my concerns if not fully diagnosed or treated the patient stated he understands but has to leave. Patient signed AGAINST MEDICAL ADVICE. Patient was instructed to Follow-up with a primary care doctor in 3-5 days or if symptoms worsen and continue return to emergency room as soon as possible. At time of signing AMA, the patient does not seem toxic or ill in appearance. No acute signs of distress noted. No further questions noted by the patient. Critical care attestation.: If time is entered above; I have spent that time in minutes in the direct care of this critically ill patient, excluding procedure time. ED Disposition Clinical Impression: Nausea & vomiting Qualifiers: Vomiting type: unspecified Vomiting Intractability: unspecified Qualified Code(s): R11.2 - Nausea with vomiting, unspecified Disposition: DC-07 LEFT AGAINST MED ADVICE Is pt being admited?: No Does the pt Need Aspirin: No Condition: Undetermined Instructions: Acute Nausea and Vomiting (ED) Additional Instructions: Follow-up with a primary care doctor in 3-5 days or if symptoms worsen and continue return to emergency room as soon as possible. Your condition may be serious as instructed and educated today in the ER but you decided to leave AGAINST MEDICAL ADVICE. It is highly recommended to see a provider as soon as possible to rule out serious complications such as obstruction, appendicitis, etc. and other abdominal/pelvic serious medical conditions as was told to you. Referrals: [facility] MD ISAC [Primary Care Provider] - 3-5 Days PRIMARY MD RACHEL [Referring] - 3-5 Days JOHN OLMOS MD [Staff Physician] - 3-5 Days [facility] [Outside] - 3-5 Days [facility] [Outside] - 3-5 Days Forms: AMA Form
[2018-08-22] MEDS ORDERED: REGLAN IV ONE (14:26)
[2018-08-22 14:43] LABS: Basophils % (Auto) 0.5 % (0.0-1.8); Eosinophils % (Auto) 0.2 % (0.0-4.3); Hematocrit 43.9 % (35.5-45.6); Lymphocytes # (Auto) 1.1 K/mm3 (1.2-5.4); Lymphocytes % (Auto) 11.1 % (13.4-35.0); Mean Corpuscular HGB Conc 34 % (32-34); Mean Corpuscular Volume 87 fl (84-94); Monocytes # (Auto) 0.8 K/mm3 (0.0-0.8); Platelet Count 259 K/mm3 (140-440); Red Blood Count 5.07 M/mm3 (3.65-5.03); Red Cell Distribution Width 13.3 % (13.2-15.2)
[2018-08-22] MEDS ORDERED: ZOFRAN IV NR (15:00)
[2018-08-22 15:05] LABS: Alanine Aminotransferase 15 units/L (7-56); Albumin 4.5 g/dL (3.9-5); BUN/Creatinine Ratio 12; Blood Urea Nitrogen 11 mg/dL (9-20); Calcium 9.1 mg/dL (8.4-10.2); Hemolysis Index 12
== END 2018-08-22 14:46 | disposition left against medical advice (07) ==
LOC: ED 13:22
DX: R11.2 Nausea with vomiting, unspecified (principal); G43.909 Migraine, unspecified, not intractable, without status migrainosus; J45.909 Unspecified asthma, uncomplicated; F12.10 Cannabis abuse, uncomplicated; Z79.899 Other long term (current) drug therapy
CPT/HCPCS: 36415; 80053; 83690; 85025; 96361; 96374; 96375; 99283; J2405; J2765; J7030

== ENCOUNTER 2019-03-08 15:09 | Emergency (ER) | payer OTHER ==
[2019-03-08 15:25] VITALS: BP 115/69
--- NOTE | 2019-03-08 17:02 | Event Note ---
ED Screening Note Date of service: 03/08/19 Time: 17:00 ED Screening Note: 23 y o ,merline presents with right toe pain and bleeding with nail coming off states he noticed it after playing basketball This initial assessment/diagnostic orders/clinical plan/treatment(s) is/are subject to change based on patients health status, clinical progression and re- assessment by fellow clinical providers in the ED. Further treatment and workup at subsequent clinical providers discretion. Patient/guardian urged not to elope from the ED as their condition may be serious if not clinically assessed and managed. Initial orders include:
--- NOTE | 2019-03-08 19:53 | Emergency Department Report ---
Chief Complaint: Extremity Injury, Lower Stated Complaint: BLLE BIG TOE BRUISE NAIL COMING OFF Time Seen by Provider: 03/08/19 19:39 - HPI History of Present Illness: 23 y o ,merline presents with right toe pain and bleeding with nail coming off states he noticed it after playing basketball - Exam Vital Signs: Vital Signs 03/08/19 15:24 Temperature 98.4 F Pulse Rate 58 L Respiratory 16 Rate Blood Pressure 115/69 O2 Sat by Pulse 96 Oximetry Physical Exam: Bilateral great toe nails black and blue mild tenderness to touch normal capillary refill. Full range of motion of toes and foot. MSE screening note: Focused history and physical exam performed. Due to findings the following was ordered: 23 y o ,merline presents with right toe pain and bleeding with nail coming off states he noticed it after playing basketball [place] patient I will refer him to podiatry. ED Disposition for MSE Clinical Impression: Injury of nail bed of toe Disposition: Z- MED SCREENING EXAM-LEFT Is pt being admited?: No Does the pt Need Aspirin: No Condition: Stable Referrals: PRIMARY CARE, [Primary Care Provider] - 3-5 Days TIM WASHBURN DPM [Staff Physician] - 3-5 Days
== END 2019-03-08 19:50 | disposition left against medical advice (07) ==
LOC: ED 15:09
DX: S90.111A Contusion of right great toe without damage to nail, initial encounter (principal); S90.112A Contusion of left great toe without damage to nail, initial encounter; X58.XXXA Exposure to other specified factors, initial encounter; Y93.67 Activity, basketball; Y92.89 Other specified places as the place of occurrence of the external cause; Y99.8 Other external cause status
CPT/HCPCS: 99281

== ENCOUNTER 2019-09-22 13:24 | Inpatient (IN) | payer OTHER ==
[2019-09-22] MEDS ORDERED: SODIUM CHLORIDE 0.9% 1000 ML 1,000 ML IV ONE (14:12)
[2019-09-22] MEDS ORDERED: ONDANSETRON 4 MG/2 ML INJ IV ONE ×2 (14:12→16:05)
[2019-09-22] MEDS ORDERED: MORPHINE 4 MG/1 ML INJ IV ONE ×2 (14:12→16:09)
--- NOTE | 2019-09-22 14:34 | Emergency Department Report ---
ED Abdominal Pain HPI - General Chief Complaint: Nausea/Vomiting/Diarrhea Stated Complaint: ABD PAIN/DIARRHEA/V/N/SOB Time Seen by Provider: 09/22/19 14:11 Source: patient Mode of arrival: Ambulatory Limitations: No Limitations - History of Present Illness Initial Comments: This is a 23-year-old male nontoxic, well nourished in appearance, no acute sign s of distress presents to the ED with c/o of nausea and vomiting and abdominal pain 3 days. Patient describes vomiting as food content and yellow gastric acid. Patient describes abdominal pain as cramping and aching with level of 8/10 diffuse. Patient denies chest pain, short of breath, fever, hemoptysis, blood in stool, chills, headache, stiff neck, numbness or tingling. Patient denies any diarrhea or constipation. Denies any blood in stool. Patient denies any recent travels. Patient denies any allergies or PMH. MD Complaint: abdominal pain -: days(s) Location: diffuse Radiation: none Migration to: no migration Severity: moderate Severity scale (0 -10): 8 Quality: cramping, aching Consistency: constant Improves With: nothing Worsens With: nothing Associated Symptoms: nausea, vomiting. denies: diarrhea, fever, chills, constipation, dysuria, hematemesis, hematochezia, melena, hematuria, anorexia, syncope - Related Data Previous Rx's Medication Instructions Recorded Last Taken Type levETIRAcetam [Keppra TAB] 500 mg PO BID #40 tablet 07/16/17 Unknown Rx Famotidine [Pepcid] 20 mg PO BID #14 tablet 10/12/17 Unknown Rx Lacosamide [Vimpat] 50 mg PO Q12H #60 tablet 10/12/17 Unknown Rx Prednisone [predniSONE 5 mg (6-Day 5 mg PO .TAPER #1 tab.ds.pk 10/12/17 Unknown Rx Pack, 21 Tabs)] diphenhydrAMINE [Benadryl CAP] 25 mg PO Q8HR #10 capsule 10/12/17 Unknown Rx Cyclobenzaprine [Flexeril] 10 mg PO BID PRN #20 tablet 12/19/17 Unknown Rx Menthol/Camphor [Mcintyre [place] 1 applicatio TP TID PRN #1 tube 12/19/17 Unknown Rx Ointment] Naproxen [Naprosyn] 500 mg PO BID PRN #30 tablet 12/19/17 Unknown Rx Dicyclomine [Bentyl] 20 mg PO Q8H 3 Days #9 bottle 02/19/18 Unknown Rx Ondansetron [Zofran ODT TAB] 8 mg PO Q8HR PRN #12 tab.rapdis 02/19/18 Unknown Rx Allergies Allergy/AdvReac Type Severity Reaction Status Date / Time No Known Allergies Allergy Verified 02/19/18 09:23 ED Review of Systems ROS: Stated complaint: ABD PAIN/DIARRHEA/V/N/SOB Other details as noted in HPI Constitutional: denies: chills, fever Eyes: denies: eye pain, eye discharge, vision change ENT: denies: ear pain, throat pain Respiratory: denies: cough, shortness of breath, wheezing Cardiovascular: denies: chest pain, palpitations Endocrine: no symptoms reported Gastrointestinal: abdominal pain, nausea, vomiting. denies: diarrhea Genitourinary: denies: urgency, dysuria Musculoskeletal: denies: back pain, joint swelling, arthralgia Skin: denies: rash, lesions Neurological: denies: headache, weakness, paresthesias Psychiatric: denies: anxiety, depression Hematological/Lymphatic: denies: easy bleeding, easy bruising ED Past Medical Hx - Past Medical History Previous Medical History?: Yes Hx Headaches / Migraines: Yes (complex) Hx Seizures: Yes Hx Asthma: Yes - Surgical History Past Surgical History?: Yes Hx Appendectomy: No Additional Surgical History: left shoulder - Social History Smoking Status: Never Smoker Substance Use Type: None - Medications Home Medications: Home Medications Medication Instructions Recorded Confirmed Last Taken Type levETIRAcetam [Keppra TAB] 500 mg PO BID #40 tablet 07/16/17 10/09/17 Unknown Rx Famotidine [Pepcid] 20 mg PO BID #14 tablet 10/12/17 Unknown Rx Lacosamide [Vimpat] 50 mg PO Q12H #60 tablet 10/12/17 Unknown Rx Prednisone [predniSONE 5 mg (6-Day 5 mg PO .TAPER #1 tab.ds.pk 10/12/17 Unknown Rx Pack, 21 Tabs)] diphenhydrAMINE [Benadryl CAP] 25 mg PO Q8HR #10 capsule 10/12/17 Unknown Rx Cyclobenzaprine [Flexeril] 10 mg PO BID PRN #20 tablet 12/19/17 Unknown Rx Menthol/Camphor [Mcintyre [place] 1 applicatio TP TID PRN #1 tube 12/19/17 Unknown Rx Ointment] Naproxen [Naprosyn] 500 mg PO BID PRN #30 tablet 12/19/17 Unknown Rx Dicyclomine [Bentyl] 20 mg PO Q8H 3 Days #9 bottle 02/19/18 Unknown Rx Ondansetron [Zofran ODT TAB] 8 mg PO Q8HR PRN #12 tab.rapdis 02/19/18 Unknown Rx ED Physical Exam - General Limitations: No Limitations General appearance: alert, in no apparent distress - Head Head exam: Present: atraumatic, normocephalic - Eye Eye exam: Present: normal appearance - Neck Neck exam: Present: normal inspection, full ROM. Absent: tenderness, meningismus, lymphadenopathy - Respiratory Respiratory exam: Present: normal lung sounds bilaterally. Absent: respiratory distress, wheezes, rales, rhonchi, stridor, chest wall tenderness, accessory muscle use, decreased breath sounds, prolonged expiratory - Cardiovascular Cardiovascular Exam: Present: regular rate, normal rhythm, normal heart sounds. Absent: bradycardia, tachycardia, irregular rhythm, systolic murmur, diastolic murmur, rubs, gallop - GI/Abdominal GI/Abdominal exam: Present: soft, tenderness (RLQ), normal bowel sounds. Absent: distended, guarding, rebound, rigid, diminished bowel sounds - Extremities Exam Extremities exam: Present: normal inspection, full ROM - Back Exam Back exam: Present: normal inspection, full ROM. Absent: tenderness, CVA tenderness (R), CVA tenderness (L), muscle spasm, paraspinal tenderness, vertebral tenderness, rash noted - Neurological Exam Neurological exam: Present: alert, oriented X3, normal gait - Psychiatric Psychiatric exam: Present: normal affect, normal mood - Skin Skin exam: Present: warm, dry, intact, normal color. Absent: rash ED Course Vital Signs 09/22/19 13:48 Temperature 97.5 F L Pulse Rate 63 Respiratory 16 Rate Blood Pressure 140/90 O2 Sat by Pulse 96 Oximetry - Reevaluation(s) Reevaluation #1: 09/22/19 14:30 Patient is speaking in full sentences with no signs of distress noted. - Consultations Consultation #1: 09/22/19 16:37 Patient has been consulted with Dr. Ag (general surgery) about patient history, physical exam, and labs/CT results and agrees for admission. Consultation #2: 09/22/19 17:52 Patient has been consulted with Dr. Olivia V about patient history, physical exam, and labs/CT results and accepts patient to services. ED Medical Decision Making - Lab Data Result diagrams: 09/22/19 14:14 09/22/19 14:14 Lab Results 09/22/19 09/22/19 Range/Units 14:14 14:14 WBC 6.8 (4.5-11.0) K/mm3 RBC 5.39 H (3.65-5.03) M/mm3 Hgb 15.8 H (11.8-15.2) gm/dl Hct 45.5 (35.5-45.6) % MCV 85 (84-94) fl MCH 29 (28-32) pg MCHC 35 H (32-34) % RDW 12.8 L (13.2-15.2) % Plt Count 311 (140-440) K/mm3 [place] % (Auto) Meat Carver Add Manual Diff Complete Total Counted 100 Seg Neuts % (Manual) 63.0 (40.0-70.0) % Band Neutrophils % 0 % Lymphocytes % (Manual) 16.0 (13.4-35.0) % Reactive Lymphs % (Man) 0 % Monocytes % (Manual) 21.0 H (0.0-7.3) % Eosinophils % (Manual) 0 (0.0-4.3) % Basophils % (Manual) 0 (0.0-1.8) % Metamyelocytes % 0 % Myelocytes % 0 % Promyelocytes % 0 % Blast Cells % 0 % Nucleated RBC % Not Reportable Seg Neutrophils # Man 4.3 (1.8-7.7) K/mm3 Band Neutrophils # 0.0 K/mm3 Lymphocytes # (Manual) 1.1 L (1.2-5.4) K/mm3 Abs React Lymphs (Man) 0.0 K/mm3 Monocytes # (Manual) 1.4 H (0.0-0.8) K/mm3 Eosinophils # (Manual) 0.0 (0.0-0.4) K/mm3 Basophils # (Manual) 0.0 (0.0-0.1) K/mm3 Metamyelocytes # 0.0 K/mm3 Myelocytes # 0.0 K/mm3 Promyelocytes # 0.0 K/mm3 Blast Cells # 0.0 K/mm3 WBC Morphology Not Reportable Hypersegmented Neuts Not Reportable Hyposegmented Neuts Not Reportable Hypogranular Neuts Not Reportable Smudge Cells Not Reportable Toxic Granulation Not Reportable Toxic Vacuolation Not Reportable Dohle Bodies Not Reportable Pelger-Huet Anomaly Not Reportable Artie Rods Not Reportable Platelet Estimate Not Reportable Clumped Platelets Not Reportable Plt Clumps, EDTA Not Reportable Large Platelets Not Reportable Giant Platelets Not Reportable Platelet Satelliting Not Reportable Plt Morphology Comment Not Reportable RBC Morphology Normal Dimorphic RBCs Not Reportable Polychromasia Not Reportable Hypochromasia Not Reportable Poikilocytosis Not Reportable Anisocytosis Not Reportable Microcytosis Not Reportable Macrocytosis Not Reportable Spherocytes Not Reportable Pappenheimer Bodies Not Reportable Sickle Cells Not Reportable Target Cells Not Reportable Tear Drop Cells Not Reportable Ovalocytes Not Reportable Helmet Cells Not Reportable Kohli-Elizabeth Bodies Not Reportable Powers Rings Not Reportable [place] Cells Not Reportable Bite Cells Not Reportable Crenated Cell Not Reportable Elliptocytes Not Reportable Acanthocytes (Spur) Not Reportable Rouleaux Not Reportable Hemoglobin C Crystals Not Reportable Schistocytes Not Reportable Malaria parasites Not Reportable Bogdan Bodies Not Reportable Hem Pathologist Commnt No Sodium 136 L (137-145) mmol/L Potassium 3.6 (3.6-5.0) mmol/L Chloride 97.4 L (98-107) mmol/L Carbon Dioxide 22 (22-30) mmol/L Anion Gap 20 mmol/L BUN 10 (9-20) mg/dL Creatinine 1.2 (0.8-1.3) mg/dL Estimated GFR > 60 ml/min BUN/Creatinine Ratio 8 % Glucose 123 H (75-100) mg/dL Calcium 9.4 (8.4-10.2) mg/dL Total Bilirubin 0.40 (0.1-1.2) mg/dL AST 19 (5-40) units/L ALT 13 (7-56) units/L Alkaline Phosphatase 61 (35-129) units/L Total Protein 8.0 (6.3-8.2) g/dL Albumin 4.6 (3.9-5) g/dL Albumin/Globulin Ratio 1.4 % Lipase 21 (13-60) units/L - Radiology Data Referring Physician: KAMALJIT ENRIQUEZ Patient Name: LM JOHNSON Date of : 1995 Sex: Male Report Date: 2019-09-22 Report Status: Finalized [facility] [address] [place] [address] Cat Scan Report Signed Patient: LM JOHNSON MR#: [id number] : 1995 Acct:[id number] Age/Sex: 23 / M ADM Date: 09/22/19 Loc: ED Attending Dr: Ordering Physician: KAMALJIT ENRIQUEZ NP Date of Service: 09/22/19 Procedure(s): CT abdomen pelvis w con Accession Number(s): [id number] cc: KAMALJIT MELTON NP CT ABDOMEN AND PELVIS WITH CONTRAST INDICATION / CLINICAL INFORMATION: abd pain w/ n/v. TECHNIQUE: Axial CT images were obtained through the abdomen and pelvis after Omnipaque [address] scans at this location are performed using CT dose reduction for [facility] by means of automated exposure control. COMPARISON: None available. FINDINGS: LOWER CHEST: No significant abnormality. LIVER: No significant abnormality. GALLBLADDER: No significant abnormality. BILE DUCTS: No significant abnormality. PANCREAS: No significant abnormality. SPLEEN: No significant abnormality. ADRENALS: No significant abnormality. RIGHT KIDNEY / URETER: No significant abnormality. LEFT KIDNEY / URETER: No significant abnormality. STOMACH / SMALL BOWEL: No significant abnormality. COLON: No significant abnormality. APPENDIX: There is fluid-filled dilation of the appendix, measuring up to 1.3 cm in caliber. No significant inflammatory change is seen, although there were prominent right lower quadrant pain mesenteric lymph nodes. PERITONEUM: No free fluid. No free air. No fluid collection. LYMPH NODES: Prominent mesenteric, iliac chain, and pelvic lymph nodes. AORTA / ARTERIES: Prominent mesenteric vasculature within the pelvis (mesenteric "comb sign") is suspicious for hyperemia of small bowel. IVC / VEINS: No significant abnormality. URINARY BLADDER: No significant abnormality. REPRODUCTIVE ORGANS: No significant abnormality. ADDITIONAL FINDINGS: None. SKELETAL SYSTEM: No significant abnormality. IMPRESSION: 1. Fluid-filled distention of the appendix, measuring up to 1.3 cm in caliber. No significant inflammatory changes are seen, but findings could represent very early appendicitis in the right clinical setting. Clinical correlation is recommended. 2. Prominent mesenteric vasculature in the pelvis (mesenteric "comb sign") is likely related to small bowel hyperemia. An inflammatory bowel disease is not excluded. 3. Prominent mesenteric and pelvic lymph nodes are nonspecific and can be seen in the setting of an enteritis or inflammatory bowel disease. A lymphoproliferative disorder is considered much less likely. Again, clinical correlation is recommended. Signer Name: Candido Escobar MD Signed: 09/22/2019 3:49 PM Workstation Name: [id number] Transcribed By: VANNESA Dictated By: CANDIDO ESCOBAR Electronically Authenticated By: CANDIDO ESCOBAR Signed Date/Time: 09/22/191548 DD/ 38 TD/TT: - Medical Decision Making 23-year-old male that presents with acute appendicitis. Patient is stable and was examined by me. Patient consulted with Dr. Ag and admitted with Dr. Baker hospitalist. Patient placed on n.p.o. Zosyn IV administered. Labs obtained. At time of admission, the patient does not seem toxic or ill in appearance. No acute signs of distress noted. Patient agrees to admission treatment plan of care. No further questions noted by the patient. Critical care attestation.: If time is entered above; I have spent that time in minutes in the direct care of this critically ill patient, excluding procedure time. ED Disposition Clinical Impression: Acute appendicitis Qualifiers: Acute appendicitis type: unspecified acute appendicitis type Qualified Code(s): K35.80 - Unspecified acute appendicitis Disposition: OP ADMIT IP TO THIS HOSP Is pt being admited?: Yes Condition: Stable Referrals: PRIMARY CARE, [Primary Care Provider] - 3-5 Days
[2019-09-22 14:52] LABS: Alanine Aminotransferase 13 units/L (7-56); Albumin 4.6 g/dL (3.9-5); BUN/Creatinine Ratio 8; Blood Urea Nitrogen 10 mg/dL (9-20); Calcium 9.4 mg/dL (8.4-10.2); Hemolysis Index 4
[2019-09-22 14:54] LABS: Hematocrit 45.5 % (35.5-45.6); Hemoglobin 15.8 gm/dl (11.8-15.2); Mean Corpuscular HGB Conc 35 % (32-34); Mean Corpuscular Volume 85 fl (84-94); Platelet Count 311 K/mm3 (140-440); Red Blood Count 5.39 M/mm3 (3.65-5.03); Red Cell Distribution Width 12.8 % (13.2-15.2)
--- NOTE | 2019-09-22 15:54 | Cat Scan Report ---
CT ABDOMEN AND PELVIS WITH CONTRAST INDICATION / CLINICAL INFORMATION: abd pain w/ n/v. TECHNIQUE: Axial CT images were obtained through the abdomen and pelvis after Omnipaque [address]. [address] scans at this location are performed using CT dose reduction for ALARA by means of automated exposur e control. COMPARISON: None available. FINDINGS: LOWER CHEST: No significant abnormality. LIVER: No significant abnormality. GALLBLADDER: No significant abnormality. BILE DUCTS: No significant abnormality. PANCREAS: No significant abnormality. SPLEEN: No significant abnormality. ADRENALS: No significant abnormality. RIGHT KIDNEY / URETER: No significant abnormality. LEFT KIDNEY / URETER: No significant abnormality. STOMACH / SMALL BOWEL: No significant abnormality. COLON: No significant abnormality. APPENDIX: There is fluid-filled dilation of the appendix, measuring up to 1.3 cm in caliber. No signi ficant inflammatory change is seen, although there were prominent right lower quadrant pain mesenteri c lymph nodes. PERITONEUM: No free fluid. No free air. No fluid collection. LYMPH NODES: Prominent mesenteric, iliac chain, and pelvic lymph nodes. AORTA / ARTERIES: Prominent mesenteric vasculature within the pelvis (mesenteric "comb sign") is susp icious for hyperemia of small bowel. IVC / VEINS: No significant abnormality. URINARY BLADDER: No significant abnormality. REPRODUCTIVE ORGANS: No significant abnormality. ADDITIONAL FINDINGS: None. SKELETAL SYSTEM: No significant abnormality. IMPRESSION: 1. Fluid-filled distention of the appendix, measuring up to 1.3 cm in caliber. No significant inflamm atory changes are seen, but findings could represent very early appendicitis in the right clinical se tting. Clinical correlation is recommended. 2. Prominent mesenteric vasculature in the pelvis (mesenteric "comb sign") is likely related to small bowel hyperemia. An inflammatory bowel disease is not excluded. 3. Prominent mesenteric and pelvic lymph nodes are nonspecific and can be seen in the setting of an e nteritis or inflammatory bowel disease. A lymphoproliferative disorder is considered much less likely . Again, clinical correlation is recommended. Signer Name: Santhosh Escobar MD Signed: 09/22/2019 3:49 PM Workstation Name: [id number]
[2019-09-22] MEDS ORDERED: PIPERACIL/TAZOBACTA 4.5/NS 100 4.5 GM/100 ML VIAL IV ONE (16:09)
[2019-09-22 16:37] LABS: Basophils % (Manual) 0 % (0.0-1.8); Eosinophils % (Manual) 0 % (0.0-4.3); RBC Morphology Normal; Total Cells Counted 100
[2019-09-22 18:57] LABS: Bacteria,Urine 1+ /HPF (Negative); Bilirubin,Urine NEG (Negative); Blood,Urine NEG (Negative); Color,Urine Yellow (Yellow); Urobilinogen,Urine < 2.0 mg/dL (<2.0)
[2019-09-22] MEDS ORDERED: ONDANSETRON 4 MG/2 ML INJ IV PRN (23:27)
[2019-09-22] MEDS ORDERED: ACETAMINOPHEN 325 MG TAB PO PRN (23:27)
[2019-09-22] MEDS ORDERED: HYDROmorphone 1 MG/1 ML INJ IV PRN (23:27)
--- NOTE | 2019-09-22 23:32 | History and Physical Report ---
History of Present Illness Date of examination: 09/22/19 Date of admission: 09/22/19 17:53 Chief complaint: Nausea vomiting diarrhea for 1 day Right lower quadrant pain since a.m. History of present illness: 24-year-old male with no significant past medical history except seizure disorder comes in for nausea vomiting and abdominal pain of 3 days. Nausea and vomiting persistent. Vomiting about 6-8 times in a day. Patient also says he has loose watery stools but not able to give details. No fever or chills. Pain is about 8 on a scale of 1-10. Exacerbated by food. Relieved by not eating anything. No fever or chills. Pain is about 8 on a scale of 1-10. Sharp in character. - Past Medical History Previous Medical History?: Yes Headaches / Migraines: Yes (complex) Seizures: Yes Asthma: Yes - Surgical History Past Surgical History?: Yes Appendectomy: No Additional Surgical History: left shoulder - Social History Smoking Status: Never Smoker Substance Use Type: None Family history Htn - Medications Home Medications: Home Medications Medication Instructions Recorded Confirmed Last Taken Type levETIRAcetam [Keppra TAB] 500 mg PO BID #40 tablet 07/16/17 10/09/17 Unknown Rx Famotidine [Pepcid] 20 mg PO BID #14 tablet 10/12/17 Unknown Rx Lacosamide [Vimpat] 50 mg PO Q12H #60 tablet 10/12/17 Unknown Rx Prednisone [predniSONE 5 mg (6-Day 5 mg PO .TAPER #1 tab.ds.pk 10/12/17 Unknown Rx Pack, 21 Tabs)] diphenhydrAMINE [Benadryl CAP] 25 mg PO Q8HR #10 capsule 10/12/17 Unknown Rx Cyclobenzaprine [Flexeril] 10 mg PO BID PRN #20 tablet 12/19/17 Unknown Rx Menthol/Camphor [[place] 1 applicatio TP TID PRN #1 tube 12/19/17 Unknown Rx Ointment] Naproxen [Naprosyn] 500 mg PO BID PRN #30 tablet 12/19/17 Unknown Rx Dicyclomine [Bentyl] 20 mg PO Q8H 3 Days #9 bottle 02/19/18 Unknown Rx Ondansetron [Zofran ODT TAB] 8 mg PO Q8HR PRN #12 tab.rapdis 02/19/18 Unknown Rx Review of Systems ROS: Stated complaint: ABD PAIN/DIARRHEA/V/N/SOB Other details as noted in HPI Constitutional: denies: chills, fever Eyes: denies: eye pain, eye discharge, vision change ENT: denies: ear pain, throat pain Respiratory: denies: cough, shortness of breath, wheezing Cardiovascular: denies: chest pain, palpitations Endocrine: no symptoms reported Gastrointestinal: abdominal pain, nausea, vomiting. denies: diarrhea Genitourinary: denies: urgency, dysuria Musculoskeletal: denies: back pain, joint swelling, arthralgia Skin: denies: rash, lesions Neurological: denies: headache, weakness, paresthesias Psychiatric: denies: anxiety, depression Hematological/Lymphatic: denies: easy bleeding, easy bruising Medications and Allergies Allergies Allergy/AdvReac Type Severity Reaction Status Date / Time No Known Allergies Allergy Verified 02/19/18 09:23 Home Medications Medication Instructions Recorded Confirmed Last Taken Type levETIRAcetam [Keppra TAB] 500 mg PO BID #40 tablet 07/16/17 09/23/19 09/21/19 Rx Famotidine [Pepcid] 20 mg PO BID #14 tablet 10/12/17 09/23/19 09/21/19 Rx Lacosamide [Vimpat] 50 mg PO Q12H #60 tablet 10/12/17 09/23/19 09/18/19 Rx Prednisone [predniSONE 5 mg (6-Day 5 mg PO .TAPER #1 tab.ds.pk 10/12/17 09/23/19 09/15/19 Rx Pack, 21 Tabs)] diphenhydrAMINE [Benadryl CAP] 25 mg PO Q8HR #10 capsule 10/12/17 09/23/19 09/21/19 Rx Cyclobenzaprine [Flexeril] 10 mg PO BID PRN #20 tablet 12/19/17 09/23/19 09/18/19 Rx Menthol/Camphor [[place] 1 applicatio TP TID PRN #1 tube 12/19/17 09/23/19 09/18/19 Rx Ointment] Naproxen [Naprosyn] 500 mg PO BID PRN #30 tablet 12/19/17 09/23/1920 Rx Dicyclomine [Bentyl] 20 mg PO Q8H 3 Days #9 bottle 02/19/18 09/23/19 09/18/19 Rx Ondansetron [Zofran ODT TAB] 8 mg PO Q8HR PRN #12 tab.rapdis 02/19/18 09/23/19 09/21/19 Rx Exam - Constitutional Vitals: Temp Pulse Resp BP Pulse Ox 97.5 F L 63 16 140/90 96 09/22/19 13:48 09/22/19 13:48 09/22/19 13:48 09/22/19 13:48 09/22/19 13:48 General appearance: Present: no acute distress, well-nourished - EENT Eyes: Present: PERRL ENT: hearing intact, clear oral mucosa - Neck Neck: Present: supple, normal ROM - Respiratory Respiratory effort: normal Respiratory: bilateral: CTA - Cardiovascular Heart rate: 78 Rhythm: regular Heart Sounds: Present: S1 & S2. Absent: rub, click - Extremities Extremities: no ischemia, pulses symmetrical, No edema Peripheral Pulses: within normal limits - Abdominal General gastrointestinal: Present: soft, tender, non-distended, normal bowel sounds Localized gastrointestinal: tender: RLQ, guarding: RLQ, rebound: RLQ Male genitourinary: Present: normal - Rectal Rectal Exam: deferred - Integumentary Integumentary: Present: clear, warm, dry - Musculoskeletal Musculoskeletal: gait normal, strength equal bilaterally - Psychiatric Psychiatric: appropriate mood/affect, intact judgment & insight - Neurologic Neurologic: CNII-XII intact, moves all extremities - Allied Health Allied health notes reviewed: nursing, case management Results - Labs CBC & Chem 7: 09/23/19 04:16 09/23/19 04:16 Labs: Laboratory Last Values WBC 6.8 K/mm3 (4.5-11.0) 09/22/19 14:14 RBC 5.39 M/mm3 (3.65-5.03) H 09/22/19 14:14 Hgb 15.8 gm/dl (11.8-15.2) H 09/22/19 14:14 Hct 45.5 % (35.5-45.6) 09/22/19 14:14 MCV 85 fl (84-94) 09/22/19 14:14 MCH 29 pg (28-32) 09/22/19 14:14 MCHC 35 % (32-34) H 09/22/19 14:14 RDW 12.8 % (13.2-15.2) L 09/22/19 14:14 Plt Count 311 K/mm3 (140-440) 09/22/19 14:14 [place] % (Auto) [employer] 09/22/19 14:14 Add Manual Diff Complete 09/22/19 14:14 Total Counted 100 09/22/19 14:14 Seg Neuts % (Manual) 63.0 % (40.0-70.0) 09/22/19 14:14 Band Neutrophils % 0 % 09/22/19 14:14 Lymphocytes % (Manual) 16.0 % (13.4-35.0) 09/22/19 14:14 Reactive Lymphs % (Man) 0 % 09/22/19 14:14 Monocytes % (Manual) 21.0 % (0.0-7.3) H 09/22/19 14:14 Eosinophils % (Manual) 0 % (0.0-4.3) 09/22/19 14:14 Basophils % (Manual) 0 % (0.0-1.8) 09/22/19 14:14 Metamyelocytes % 0 % 09/22/19 14:14 Myelocytes % 0 % 09/22/19 14:14 Promyelocytes % 0 % 09/22/19 14:14 Blast Cells % 0 % 09/22/19 14:14 Nucleated RBC % Not Reportable 09/22/19 14:14 Seg Neutrophils # Man 4.3 K/mm3 (1.8-7.7) 09/22/19 14:14 Band Neutrophils # 0.0 K/mm3 09/22/19 14:14 Lymphocytes # (Manual) 1.1 K/mm3 (1.2-5.4) L 09/22/19 14:14 Abs React Lymphs (Man) 0.0 K/mm3 09/22/19 14:14 Monocytes # (Manual) 1.4 K/mm3 (0.0-0.8) H 09/22/19 14:14 Eosinophils # (Manual) 0.0 K/mm3 (0.0-0.4) 09/22/19 14:14 Basophils # (Manual) 0.0 K/mm3 (0.0-0.1) 09/22/19 14:14 Metamyelocytes # 0.0 K/mm3 09/22/19 14:14 Myelocytes # 0.0 K/mm3 09/22/19 14:14 Promyelocytes # 0.0 K/mm3 09/22/19 14:14 Blast Cells # 0.0 K/mm3 09/22/19 14:14 WBC Morphology Not Reportable 09/22/19 14:14 Hypersegmented Neuts Not Reportable 09/22/19 14:14 Hyposegmented Neuts Not Reportable 09/22/19 14:14 Hypogranular Neuts Not Reportable 09/22/19 14:14 Smudge Cells Not Reportable 09/22/19 14:14 Toxic Granulation Not Reportable 09/22/19 14:14 Toxic Vacuolation Not Reportable 09/22/19 14:14 Dohle Bodies Not Reportable 09/22/19 14:14 Pelger-Huet Anomaly Not Reportable 09/22/19 14:14 Artie Rods Not Reportable 09/22/19 14:14 Platelet Estimate Not Reportable 09/22/19 14:14 Clumped Platelets Not Reportable 09/22/19 14:14 Plt Clumps, EDTA Not Reportable 09/22/19 14:14 Large Platelets Not Reportable 09/22/19 14:14 Giant Platelets Not Reportable 09/22/19 14:14 Platelet Satelliting Not Reportable 09/22/19 14:14 Plt Morphology Comment Not Reportable 09/22/19 14:14 RBC Morphology Normal 09/22/19 14:14 Dimorphic RBCs Not Reportable 09/22/19 14:14 Polychromasia Not Reportable 09/22/19 14:14 Hypochromasia Not Reportable 09/22/19 14:14 Poikilocytosis Not Reportable 09/22/19 14:14 Anisocytosis Not Reportable 09/22/19 14:14 Microcytosis Not Reportable 09/22/19 14:14 Macrocytosis Not Reportable 09/22/19 14:14 Spherocytes Not Reportable 09/22/19 14:14 Pappenheimer Bodies Not Reportable 09/22/19 14:14 Sickle Cells Not Reportable 09/22/19 14:14 Target Cells Not Reportable 09/22/19 14:14 Tear Drop Cells Not Reportable 09/22/19 14:14 Ovalocytes Not Reportable 09/22/19 14:14 Helmet Cells Not Reportable 09/22/19 14:14 [place] Bodies Not Reportable 09/22/19 14:14 [place] Rings Not Reportable 09/22/19 14:14 [place] Cells Not Reportable 09/22/19 14:14 Bite Cells Not Reportable 09/22/19 14:14 Crenated Cell Not Reportable 09/22/19 14:14 Elliptocytes Not Reportable 09/22/19 14:14 Acanthocytes (Spur) Not Reportable 09/22/19 14:14 Rouleaux Not Reportable 09/22/19 14:14 Hemoglobin C Crystals Not Reportable 09/22/19 14:14 Schistocytes Not Reportable 09/22/19 14:14 Malaria parasites Not Reportable 09/22/19 14:14 Bogdan Bodies Not Reportable 09/22/19 14:14 Hem Pathologist Commnt No 09/22/19 14:14 Sodium 136 mmol/L (137-145) L 09/22/19 14:14 Potassium 3.6 mmol/L (3.6-5.0) 09/22/19 14:14 Chloride 97.4 mmol/L (98-107) L 09/22/19 14:14 Carbon Dioxide 22 mmol/L (22-30) 09/22/19 14:14 Anion Gap 20 mmol/L 09/22/19 14:14 BUN 10 mg/dL (9-20) 09/22/19 14:14 Creatinine 1.2 mg/dL (0.8-1.3) 09/22/19 14:14 Estimated GFR > 60 ml/min 09/22/19 14:14 BUN/Creatinine Ratio 8 % 09/22/19 14:14 Glucose 123 mg/dL (75-100) H 09/22/19 14:14 Calcium 9.4 mg/dL (8.4-10.2) 09/22/19 14:14 Total Bilirubin 0.40 mg/dL (0.1-1.2) 09/22/19 14:14 AST 19 units/L (5-40) 09/22/19 14:14 ALT 13 units/L (7-56) 09/22/19 14:14 Alkaline Phosphatase 61 units/L (35-129) 09/22/19 14:14 Total Protein 8.0 g/dL (6.3-8.2) 09/22/19 14:14 Albumin 4.6 g/dL (3.9-5) 09/22/19 14:14 Albumin/Globulin Ratio 1.4 % 09/22/19 14:14 Lipase 21 units/L (13-60) 09/22/19 14:14 Urine Color Yellow (Yellow) 09/22/19 18:41 Urine Turbidity Turbid (Clear) 09/22/19 18:41 Urine pH 5.0 (5.0-7.0) 09/22/19 18:41 Ur Specific [place] > 1.030 (1.003-1.030) H 09/22/19 18:41 Urine Protein 30 mg/dl mg/dL (Negative) 09/22/19 18:41 Urine Glucose (UA) Neg mg/dL (Negative) 09/22/19 18:41 Urine Ketones 20 mg/dL (Negative) 09/22/19 18:41 Urine Blood Neg (Negative) 09/22/19 18:41 Urine Nitrite Neg (Negative) 09/22/19 18:41 Urine Bilirubin Neg (Negative) 09/22/19 18:41 Urine Urobilinogen < 2.0 mg/dL (<2.0) 09/22/19 18:41 Ur Leukocyte Esterase Neg (Negative) 09/22/19 18:41 Urine WBC (Auto) 100.0 /HPF (0.0-6.0) H 09/22/19 18:41 Urine RBC (Auto) 15.0 /HPF (0.0-6.0) 09/22/19 18:41 Urine Bacteria (Auto) 1+ /HPF (Negative) 09/22/19 18:41 Urine WBC Clumps 2+ /HPF 09/22/19 18:41 - Imaging and Cardiology Imaging and Cardiology: Abdominal CAT scan Fluid-filled distention of the appendix measuring up to 1.3 cm in caliber. No significant inflammatory changes are seen but findings could represent very early appendicitis in the right clinical setting. Clinical correlation is recommended. Prominent prominent mesenteric vasculature in the pelvis is likely related to a small bowel hyperemia And an inflammatory bowel disease is not excluded. Prominent mesenteric and pelvic lymph nodes are nonspecific and can be seen in the setting of an enteritis or inflammatory bowel disease. A lymphoproliferative disorder is considered much less likely again clinical correlation is recommended. Carlos/IV: IV Catheter Type [Left Peripheral IV Antecubital] Assessment and Plan Advance Directives: Yes (Full code) VTE prophylaxis?: Chemical Plan of care discussed with patient/family: Yes - Patient Problems (1) Acute appendicitis Current Visit: Yes Status: Acute Qualifiers: Acute appendicitis type: unspecified acute appendicitis type Qualified Code(s): K35.80 - Unspecified acute appendicitis Plan to address problem: IV Zosyn initiated Pain control Surgery consult requested (2) Acute gastroenteritis Current Visit: Yes Status: Acute Plan to address problem: Patient has inflammatory changes in the small intestine Possible viral gastroenteritis IV fluids for now (3) Seizure disorder Current Visit: Yes Status: Chronic Plan to address problem: Patient switched from oral Keppra to IV Keppra because of her n.p.o. status also IV Vimpat so that he does not have recurrent seizures (4) Acute dehydration Current Visit: Yes Status: Acute Plan to address problem: IV fluids for now (5) DVT prophylaxis Current Visit: No Status: Acute Plan to address problem: SCDs for now and GI prophylaxis
[2019-09-23] MEDS: PIPERACIL/TAZOBACTA 4.5/NS 100 4.5 GM/100 ML VIAL IV SCH ×3 (00:45→18:50)
[2019-09-23] MEDS: SODIUM CHLORIDE 0.9% 1000 ML 1,000 ML IV SCH ×2 (00:47→09:59)
[2019-09-23] MEDS: FAMOTIDINE 20 MG/2 ML INJ IV SCH ×3 (02:56→22:08)
[2019-09-23 05:02] LABS: Hemoglobin 14.2 gm/dl (11.8-15.2); Mean Corpuscular HGB Conc 35 % (32-34); Mean Corpuscular Volume 84 fl (84-94); Platelet Count 244 K/mm3 (140-440); Red Blood Count 4.86 M/mm3 (3.65-5.03)
[2019-09-23 05:40] LABS: Alanine Aminotransferase 11 units/L (7-56); BUN/Creatinine Ratio 7; Blood Urea Nitrogen 9 mg/dL (9-20); Calcium 8.8 mg/dL (8.4-10.2); Hemolysis Index 11
[2019-09-23 06:45] LABS: Basophils % (Manual) 0 % (0.0-1.8); Eosinophils % (Manual) 0 % (0.0-4.3); Platelet Estimate Consistent w Auto; Total Cells Counted 100
[2019-09-23] MEDS: LACOSAMIDE 100 MG in SODIUM CHLORIDE 0.9% 100 ML IV SCH ×2 (09:56→22:08)
[2019-09-23] MEDS: levETIRAcetam 750 MG in DEXTROSE 5% IN WATER 100 ML IV SCH ×2 (09:57→22:07)
--- NOTE | 2019-09-23 09:59 | Consultation ---
History of Present Illness Consult date: 09/23/19 Reason for consult: abdominal pain Chief complaint: Nausea, vomiting, diarrhea - History of present illness History of present illness: 23-year-old male with past medical history of seizures and asthma who presented to the emergency room with 3 days of nausea, vomiting, diarrhea. The emesis is nonbloody, nonbilious and consists mostly of the liquid that he drinks. He states that he was vomiting even after drinking water. After 2 days, he started to experience diffuse crampy abdominal pain. The abdominal pain is not localized and is sometimes in the left abdomen and sometimes on the right abdom en. He states he has never had anything like this before. Prior to the episode starting, he ate out at a restaurant where he feels he may have gotten food poisoning. He also had hiccups for several hours. Currently his abdominal pain is mild and mainly in the upper abdomen. He is still slightly nauseated but has not had vomiting since yesterday. He continues to have diarrhea. No fevers or chills, chest pain, shortness of breath. No sick contacts. Past History Past Medical History: seizures, other (Asthma) Past Surgical History: Other (Left shoulder surgery) Social history: smoking (Daily marijuana). denies: alcohol abuse, prescription drug abuse, IV drug use Family history: no significant family history Medications and Allergies Allergies Allergy/AdvReac Type Severity Reaction Status Date / Time No Known Allergies Allergy Verified 02/19/18 09:23 Home Medications Medication Instructions Recorded Confirmed Last Taken Type levETIRAcetam [Keppra TAB] 500 mg PO BID #40 tablet 07/16/17 09/23/19 09/21/19 Rx Famotidine [Pepcid] 20 mg PO BID #14 tablet 10/12/17 09/23/19 09/21/19 Rx Lacosamide [Vimpat] 50 mg PO Q12H #60 tablet 10/12/17 09/23/19 09/18/19 Rx Prednisone [predniSONE 5 mg (6-Day 5 mg PO .TAPER #1 tab.ds.pk 10/12/17 09/23/19 09/15/19 Rx Pack, 21 Tabs)] diphenhydrAMINE [Benadryl CAP] 25 mg PO Q8HR #10 capsule 10/12/17 09/23/19 09/21/19 Rx Cyclobenzaprine [Flexeril] 10 mg PO BID PRN #20 tablet 12/19/17 09/23/19 09/18/19 Rx Menthol/Camphor [[place] 1 applicatio TP TID PRN #1 tube 12/19/17 09/23/19 09/18/19 Rx Ointment] Naproxen [Naprosyn] 500 mg PO BID PRN #30 tablet 12/19/17 09/23/19 09/21/19 Rx Dicyclomine [Bentyl] 20 mg PO Q8H 3 Days #9 bottle 02/19/18 09/23/19 09/18/19 Rx Ondansetron [Zofran ODT TAB] 8 mg PO Q8HR PRN #12 tab.rapdis 02/19/18 09/23/19 09/21/19 Rx Active Meds: Active Medications Acetaminophen (Tylenol) 650 mg PO Q4H PRN PRN Reason: Pain MILD(1-3)/Fever >100.5/NIELSON Famotidine (Pepcid) 20 mg IV BID [facility] Last Admin: 09/23/19 02:56 Dose: Not Given Documented by: Hydromorphone HCl (Dilaudid) 1 mg IV Q3H PRN PRN Reason: Pain , Severe (7-10) Sodium Chloride (Nacl 0.9% 1000 Ml) 1,000 mls @ 100 mls/hr IV DIRECT [facility] Last Admin: 09/23/19 00:47 Dose: 100 mls/hr Documented by: Piperacillin Sod/Tazobactam Sod (Zosyn/Ns 4.5gm/100ml) 4.5 gm in 100 mls @ 200 mls/hr IV Q8H [facility]; Protocol Last Infusion: 09/23/19 02:54 Dose: Infused Documented by: Levetiracetam 750 mg/ Dextrose 107.5 mls @ 400 mls/hr IV Q12HR [facility] Lacosamide 100 mg/ Sodium (Chloride) 110 mls @ 100 mls/hr IV Q12HR [facility] Metoclopramide HCl (Reglan) 10 mg IV Q8H [facility] Ondansetron HCl (Zofran) 4 mg IV Q6H PRN PRN Reason: Nausea And Vomiting Sodium Chloride (Sodium Chloride Flush Syringe 10 Ml) 10 ml IV BID [place] Sodium Chloride (Sodium Chloride Flush Syringe 10 Ml) 10 ml IV PRN PRN PRN Reason: LINE FLUSH Review of Systems All systems: negative (10 point ROS performed and negative except for that listed in HPI) Exam Vital Signs Temp Pulse Resp BP Pulse Ox 97.5 F L 63 16 140/90 96 09/22/19 13:48 09/22/19 13:48 09/22/19 13:48 09/22/19 13:48 09/22/19 13:48 Narrative exam: Gen.: Awake, alert, oriented 3. No apparent distress ENT: Trachea midline. No lymphadenopathy. No scleral icterus or conjunctival pallor CV: S1, S2 present Respiratory: No audible wheezes Abdomen: Soft, nondistended, right upper quadrant and epigastric discomfort on palpation. No rebound, rigidity, guarding Extremities: No clubbing, cyanosis, edema Results - Labs 09/23/19 04:16 09/23/19 04:16 Abnormal lab results 09/22/19 09/22/19 09/22/19 Range/Units 14:14 14:14 18:41 WBC (4.5-11.0) K/mm3 RBC 5.39 H (3.65-5.03) M/mm3 Hgb 15.8 H (11.8-15.2) gm/dl MCHC 35 H (32-34) % RDW 12.8 L (13.2-15.2) % Lymphocytes % (Manual) (13.4-35.0) % Monocytes % (Manual) 21.0 H (0.0-7.3) % Lymphocytes # (Manual) 1.1 L (1.2-5.4) K/mm3 Monocytes # (Manual) 1.4 H (0.0-0.8) K/mm3 Sodium 136 L (137-145) mmol/L Potassium (3.6-5.0) mmol/L Chloride 97.4 L (98-107) mmol/L Glucose 123 H (75-100) mg/dL Ur Specific [place] > 1.030 H (1.003-1.030) Urine WBC (Auto) 100.0 H (0.0-6.0) /HPF 09/23/19 09/23/19 Range/Units 04:16 04:16 WBC 4.3 L (4.5-11.0) K/mm3 RBC (3.65-5.03) M/mm3 Hgb (11.8-15.2) gm/dl MCHC 35 H (32-34) % RDW 13.0 L (13.2-15.2) % Lymphocytes % (Manual) 40.0 H (13.4-35.0) % Monocytes % (Manual) (0.0-7.3) % Lymphocytes # (Manual) (1.2-5.4) K/mm3 Monocytes # (Manual) (0.0-0.8) K/mm3 Sodium (137-145) mmol/L Potassium 3.3 L (3.6-5.0) mmol/L Chloride (98-107) mmol/L Glucose (75-100) mg/dL Ur Specific [place] (1.003-1.030) Urine WBC (Auto) (0.0-6.0) /HPF Diabetes panel 09/22/19 09/23/19 09/23/19 Range/Units 14: 04:16 04:16 Sodium 136 L 138 (137-145) mmol/L Potassium 3.6 3.3 L (3.6-5.0) mmol/L Chloride 97.4 L 98.9 (98-107) mmol/L Carbon Dioxide 22 26 (22-30) mmol/L BUN 10 9 (9-20) mg/dL Creatinine 1.2 1.3 (0.8-1.3) mg/dL Glucose 123 H 92 (75-100) mg/dL Hemoglobin A1c 5.1 (4-6) % Calcium 9.4 8.8 (8.4-10.2) mg/dL AST 19 18 (5-40) units/L ALT 13 11 (7-56) units/L Alkaline Phosphatase 61 53 (35-129) units/L Total Protein 8.0 7.5 (6.3-8.2) g/dL Albumin 4.6 4.0 (3.9-5) g/dL Calcium panel 09/22/19 09/23/19 Range/Units 14:14 04:16 Calcium 9.4 8.8 (8.4-10.2) mg/dL Albumin 4.6 4.0 (3.9-5) g/dL Pituitary panel 09/22/19 09/23/19 Range/Units 14:14 04:16 Sodium 136 L 138 (137-145) mmol/L Potassium 3.6 3.3 L (3.6-5.0) mmol/L Chloride 97.4 L 98.9 (98-107) mmol/L Carbon Dioxide 22 26 (22-30) mmol/L BUN 10 9 (9-20) mg/dL Creatinine 1.2 1.3 (0.8-1.3) mg/dL Glucose 123 H 92 (75-100) mg/dL Calcium 9.4 8.8 (8.4-10.2) mg/dL Adrenal panel 09/22/19 09/23/19 Range/Units 14:14 04:16 Sodium 136 L 138 (137-145) mmol/L Potassium 3.6 3.3 L (3.6-5.0) mmol/L Chloride 97.4 L 98.9 (98-107) mmol/L Carbon Dioxide 22 26 (22-30) mmol/L BUN 10 9 (9-20) mg/dL Creatinine 1.2 1.3 (0.8-1.3) mg/dL Glucose 123 H 92 (75-100) mg/dL Calcium 9.4 8.8 (8.4-10.2) mg/dL Total Bilirubin 0.40 0.50 (0.1-1.2) mg/dL AST 19 18 (5-40) units/L ALT 13 11 (7-56) units/L Alkaline Phosphatase 61 53 (35-129) units/L Total Protein 8.0 7.5 (6.3-8.2) g/dL Albumin 4.6 4.0 (3.9-5) g/dL - Imaging CT scan - abdomen: report reviewed, image reviewed CT scan - pelvis: report reviewed, image reviewed Assessment and Plan 23-year-old male with 1. Nausea, vomiting, diarrhea most likely consistent with gastroenteritis/colitis 2. Abnormal appendix on CT scanning Patient is stable. His history, physical exam are inconsistent with appendicitis. He most likely has gastroenteritis/colitis. Plan: 1. start clear liquid diet 2. IVF 3. empiric abx 4. antiemetics 5. prn pain control 6. stool studies 7. No acute surgical intervention at this time. The results of labs, imaging and plan discussed in detail with the patient. He is agreeable and all questions were answered. Discussed with Dr. Baker Thank you for this consultation. Please call with any questions or concerns. Evaluation and treatment of this patient was during the time of the national and state emergency arising from COVID19 coronavirus pandemic. Treatment and procedu res performed meet the current and available best practice and guidelines for patient during the COVID pandemic.
[2019-09-23] MEDS: METOCLOPRAMIDE 10 MG/2 ML INJ IV SCH ×2 (10:23→18:50)
--- NOTE | 2019-09-23 11:22 | Progress Note ---
Assessment and Plan Assessment and plan: --Possible acute appendicitis Current Visit: Yes Status: Acute Plan to address problem: Evaluated by surgery , unlikely acute appendicitis Possible gastroenteritis versus acute colitis Continue IV Zosyn , IV fluids, pain medications --Acute gastroenteritis Current Visit: Yes Status: Acute Plan to address problem: Patient has inflammatory changes in the small intestine Continue IV fluids clear liquids antibiotics Protonix --History of seizure disorder Current Visit: Yes Status: Chronic Plan to address problem: Seizure precautions , continue antiepileptic medications Do not drive until cleared by PMD or neurologist -- Acute dehydration Current Visit: Yes Status: Acute Plan to address problem: IV fluids , closely monitor and adjust management as needed -- DVT prophylaxis Current Visit: No Status: Acute Plan to address problem: SCDs for now and GI prophylaxis We will closely monitor the patient and adjust the management as needed Plan of care reviewed with the patient and his nurse History Interval history: I have seen and examined the patient at the bedside Patient's chart and medications reviewed Patient feels slightly better, tolerating clear liquids Complains of very minimal abdominal pain intermittent No nausea vomiting Vital signs noted Hospitalist Physical - Constitutional Vitals: Temp Pulse Resp BP Pulse Ox 97.5 F L 63 16 140/90 96 09/22/19 13:48 09/22/19 13:48 09/22/19 13:48 09/22/19 13:48 09/22/19 13:48 General appearance: Present: no acute distress, well-nourished - EENT Eyes: Present: PERRL, EOM intact - Neck Neck: Present: supple, normal ROM - Respiratory Respiratory effort: normal Respiratory: bilateral: diminished, negative: rales, rhonchi, wheezing - Cardiovascular Rhythm: regular Heart Sounds: Present: S1 & S2 - Extremities Extremities: no ischemia, No edema - Abdominal General gastrointestinal: soft, tender (Vague tenderness no guarding no rigidi ty), non-distended, normal bowel sounds - Integumentary Integumentary: Present: clear, warm - Psychiatric Psychiatric: appropriate mood/affect, cooperative - Neurologic Neurologic: CNII-XII intact, moves all extremities Results - Labs CBC & Chem 7: 09/23/19 04:16 09/23/19 04:16 Labs: Laboratory Last Values WBC 4.3 K/mm3 (4.5-11.0) L 09/23/19 04:16 RBC 4.86 M/mm3 (3.65-5.03) 09/23/19 04:16 Hgb 14.2 gm/dl (11.8-15.2) 09/23/19 04:16 Hct 41.0 % (35.5-45.6) 09/23/19 04:16 MCV 84 fl (84-94) 09/23/19 04:16 MCH 29 pg (28-32) 09/23/19 04:16 MCHC 35 % (32-34) H 09/23/19 04:16 RDW 13.0 % (13.2-15.2) L 09/23/19 04:16 Plt Count 244 K/mm3 (140-440) 09/23/19 04:16 [place] % (Auto) Signs Cleaner 09/23/19 04:16 Add Manual Diff Complete 09/23/19 04:16 Total Counted 100 09/23/19 04:16 Seg Neuts % (Manual) 56.0 % (40.0-70.0) 09/23/19 04:16 Band Neutrophils % 0 % 09/23/19 04:16 Lymphocytes % (Manual) 40.0 % (13.4-35.0) H 09/23/19 04:16 Reactive Lymphs % (Man) 0 % 09/23/19 04:16 Monocytes % (Manual) 4.0 % (0.0-7.3) 09/23/19 04:16 Eosinophils % (Manual) 0 % (0.0-4.3) 09/23/19 04:16 Basophils % (Manual) 0 % (0.0-1.8) 09/23/19 04:16 Metamyelocytes % 0 % 09/23/19 04:16 Myelocytes % 0 % 09/23/19 04:16 Promyelocytes % 0 % 09/23/19 04:16 Blast Cells % 0 % 09/23/19 04:16 Nucleated RBC % Not Reportable 09/23/19 04:16 Seg Neutrophils # Man 2.4 K/mm3 (1.8-7.7) 09/23/19 04:16 Band Neutrophils # 0.0 K/mm3 09/23/19 04:16 Lymphocytes # (Manual) 1.7 K/mm3 (1.2-5.4) 09/23/19 04:16 Abs React Lymphs (Man) 0.0 K/mm3 09/23/19 04:16 Monocytes # (Manual) 0.2 K/mm3 (0.0-0.8) 09/23/19 04:16 Eosinophils # (Manual) 0.0 K/mm3 (0.0-0.4) 09/23/19 04:16 Basophils # (Manual) 0.0 K/mm3 (0.0-0.1) 09/23/19 04:16 Metamyelocytes # 0.0 K/mm3 09/23/19 04:16 Myelocytes # 0.0 K/mm3 09/23/19 04:16 Promyelocytes # 0.0 K/mm3 09/23/19 04:16 Blast Cells # 0.0 K/mm3 09/23/19 04:16 WBC Morphology Not Reportable 09/23/19 04:16 Hypersegmented Neuts Not Reportable 09/23/19 04:16 Hyposegmented Neuts Not Reportable 09/23/19 04:16 Hypogranular Neuts Not Reportable 09/23/19 04:16 Smudge Cells Not Reportable 09/23/19 04:16 Toxic Granulation Not Reportable 09/23/19 04:16 Toxic Vacuolation Not Reportable 09/23/19 04:16 Dohle Bodies Not Reportable 09/23/19 04:16 Pelger-Huet Anomaly Not Reportable 09/23/19 04:16 Artie Rods Not Reportable 09/23/19 04:16 Platelet Estimate Consistent w auto 09/23/19 04:16 Clumped Platelets Not Reportable 09/23/19 04:16 Plt Clumps, EDTA Not Reportable 09/23/19 04:16 Large Platelets Not Reportable 09/23/19 04:16 Giant Platelets Not Reportable 09/23/19 04:16 Platelet Satelliting Not Reportable 09/23/19 04:16 Plt Morphology Comment Not Reportable 09/23/19 04:16 RBC Morphology Not Reportable 09/23/19 04:16 Dimorphic RBCs Not Reportable 09/23/19 04:16 Polychromasia Not Reportable 09/23/19 04:16 Hypochromasia Not Reportable 09/23/19 04:16 Poikilocytosis Not Reportable 09/23/19 04:16 Anisocytosis Not Reportable 09/23/19 04:16 Microcytosis Not Reportable 09/23/19 04:16 Macrocytosis Not Reportable 09/23/19 04:16 Spherocytes Not Reportable 09/23/19 04:16 Pappenheimer Bodies Not Reportable 09/23/19 04:16 Sickle Cells Not Reportable 09/23/19 04:16 Target Cells Not Reportable 09/23/19 04:16 Tear Drop Cells Not Reportable 09/23/19 04:16 Ovalocytes Not Reportable 09/23/19 04:16 Helmet Cells Not Reportable 09/23/19 04:16 [employer] Bodies Not Reportable 09/23/19 04:16 [place] Rings Not Reportable 09/23/19 04:16 [place] Cells Not Reportable 09/23/19 04:16 Bite Cells Not Reportable 09/23/19 04:16 Crenated Cell Not Reportable 09/23/19 04:16 Elliptocytes Not Reportable 09/23/19 04:16 Acanthocytes (Spur) Not Reportable 09/23/19 04:16 Rouleaux Not Reportable 09/23/19 04:16 Hemoglobin C Crystals Not Reportable 09/23/19 04:16 Schistocytes Not Reportable 09/23/19 04:16 Malaria parasites Not Reportable 09/23/19 04:16 Bogdan Bodies Not Reportable 09/23/19 04:16 Hem Pathologist Commnt No 09/23/19 04:16 Sodium 138 mmol/L (137-145) 09/23/19 04:16 Potassium 3.3 mmol/L (3.6-5.0) L 09/23/19 04:16 Chloride 98.9 mmol/L (98-107) 09/23/19 04:16 Carbon Dioxide 26 mmol/L (22-30) 09/23/19 04:16 Anion Gap 16 mmol/L 09/23/19 04:16 BUN 9 mg/dL (9-20) 09/23/19 04:16 Creatinine 1.3 mg/dL (0.8-1.3) 09/23/19 04:16 Estimated GFR > 60 ml/min 09/23/19 04:16 BUN/Creatinine Ratio 7 % 09/23/19 04:16 Glucose 92 mg/dL (75-100) 09/23/19 04:16 Hemoglobin A1c 5.1 % (4-6) 09/23/19 04:16 Calcium 8.8 mg/dL (8.4-10.2) 09/23/19 04:16 Total Bilirubin 0.50 mg/dL (0.1-1.2) 09/23/19 04:16 AST 18 units/L (5-40) 09/23/19 04:16 ALT 11 units/L (7-56) 09/23/19 04:16 Alkaline Phosphatase 53 units/L (35-129) 09/23/19 04:16 Total Protein 7.5 g/dL (6.3-8.2) 09/23/19 04:16 Albumin 4.0 g/dL (3.9-5) 09/23/19 04:16 Albumin/Globulin Ratio 1.1 % 09/23/19 04:16 Lipase 21 units/L (13-60) 09/22/19 14:14 Urine Color Yellow (Yellow) 09/22/19 18:41 Urine Turbidity Turbid (Clear) 09/22/19 18:41 Urine pH 5.0 (5.0-7.0) 09/22/19 18:41 Ur Specific [place] > 1.030 (1.003-1.030) H 09/22/19 18:41 Urine Protein 30 mg/dl mg/dL (Negative) 09/22/19 18:41 Urine Glucose (UA) Neg mg/dL (Negative) 09/22/19 18:41 Urine Ketones 20 mg/dL (Negative) 09/22/19 18:41 Urine Blood Neg (Negative) 09/22/19 18:41 Urine Nitrite Neg (Negative) 09/22/19 18:41 Urine Bilirubin Neg (Negative) 09/22/19 18:41 Urine Urobilinogen < 2.0 mg/dL (<2.0) 09/22/19 18:41 Ur Leukocyte Esterase Neg (Negative) 09/22/19 18:41 Urine WBC (Auto) 100.0 /HPF (0.0-6.0) H 09/22/19 18:41 Urine RBC (Auto) 15.0 /HPF (0.0-6.0) 09/22/19 18:41 Urine Bacteria (Auto) 1+ /HPF (Negative) 09/22/19 18:41 Urine WBC Clumps 2+ /HPF 09/22/19 18:41 Carlos/IV: IV Catheter Type [Left Peripheral IV Antecubital] IV Catheter Type [Right Peripheral IV Antecubital] Active Medications - Current Medications Current Medications: Generic Name Dose Route Start Last Admin Trade Name Freq PRN Reason Stop Dose Admin Acetaminophen 650 mg 09/22/19 23:27 Tylenol PO Q4H PRN Pain MILD(1-3)/Fever >100.5/NIELSON Famotidine 20 mg 09/22/19 23:45 09/23/19 09:56 Pepcid IV 20 mg BID VALERIA Administration Hydromorphone HCl 1 mg 09/22/19 23:27 Dilaudid IV Q3H PRN Pain , Severe (7-10) Sodium Chloride 1,000 mls @ 100 mls/hr 09/22/19 23:30 09/23/19 09:59 Nacl 0.9% 1000 Ml IV 100 mls/hr DIRECT VALERIA Administration Piperacillin Sod/Tazobactam Sod 4.5 gm in 100 mls @ 200 mls/hr 09/23/19 01:00 09/23/19 09:56 Zosyn/Ns 4.5gm/100ml IV 200 mls/hr Q8H VALERIA Administration Protocol Levetiracetam 750 mg/ Dextrose 107.5 mls @ 400 mls/hr 09/23/19 10:00 09/23/19 09:57 IV 400 mls/hr Q12HR VALERIA Administration Lacosamide 100 mg/ Sodium 110 mls @ 100 mls/hr 09/23/19 09:00 09/23/19 09:56 Chloride IV 100 mls/hr Q12HR VALERIA Administration Metoclopramide HCl 10 mg 09/23/19 10:00 09/23/19 10:23 Reglan IV 10 mg Q8H VALERIA Administration Ondansetron HCl 4 mg 09/23/19 10:00 Zofran IV Q6H PRN Nausea And Vomiting Sodium Chloride 10 ml 09/23/19 10:00 09/23/19 09:58 Sodium Chloride Flush Syringe 10 Ml IV 10 ml BID VALERIA Administration Sodium Chloride 10 ml 09/22/19 23:27 Sodium Chloride Flush Syringe 10 Ml IV PRN PRN LINE FLUSH
[2019-09-23] MEDS: ONDANSETRON 4 MG/2 ML INJ IV PRN ×2 (15:52→21:59)
[2019-09-24] MEDS: PIPERACIL/TAZOBACTA 4.5/NS 100 4.5 GM/100 ML VIAL IV SCH ×3 (00:21→16:40)
[2019-09-24] MEDS: SODIUM CHLORIDE 0.9% 1000 ML 1,000 ML IV SCH ×2 (02:12→16:50)
[2019-09-24] MEDS: METOCLOPRAMIDE 10 MG/2 ML INJ IV SCH ×3 (02:15→19:08)
[2019-09-24] MEDS: FAMOTIDINE 20 MG/2 ML INJ IV SCH ×2 (10:16→22:47)
[2019-09-24] MEDS: levETIRAcetam 750 MG in DEXTROSE 5% IN WATER 100 ML IV SCH ×2 (10:17→22:48)
[2019-09-24 11:40] LABS: BUN/Creatinine Ratio 4; Blood Urea Nitrogen 5 mg/dL (9-20); Calcium 8.9 mg/dL (8.4-10.2); Hemolysis Index 6
[2019-09-24] MEDS: LACOSAMIDE 100 MG in SODIUM CHLORIDE 0.9% 100 ML IV SCH ×2 (12:00→21:09)
--- NOTE | 2019-09-24 12:49 | Progress Note ---
Assessment and Plan 23-year-old male with 1. Gastroenteritis 2. Abnormal appendix on CT scanning Patient is stable. Tolerating diet. History, physical, and clinical course not consistent with appendicitis. Plan: 1. adv diet as tolerated 2. IVF 3. empiric abx 4. prn pain control 5. stool studies - few PMNs seen, cultures pending 6. will add bentyl for cramping No acute surgical intervention at this time. If patient tolerates diet advancement, ok to dc home in am with oral abx x 7 days. Recommend follow up with PCP after dc. Thank you for this consultation. Please call with any questions or concerns. Evaluation and treatment of this patient was during the time of the national and state emergency arising from COVID19 coronavirus pandemic. Treatment and procedures performed meet the current and available best practice and guidelines for patient during the COVID pandemic. Subjective Date of service: 09/24/19 Narrative: Patient seen and examined. Continues to complain of crampy abdominal pain which is mild mostly localized to the left side of his abdomen today. No nausea or vomiting. He is tolerated clear liquid diet without difficulty. Afebrile. His main complaint today is constant diarrhea without melena or hematochezia. Objective Vital Signs - 12hr 09/24/19 09/24/19 09/24/19 03:57 04:42 07:18 Temperature 98.5 F 97.6 F Pulse Rate 43 L 51 L 53 L Respiratory 16 16 Rate Blood Pressure 114/57 115/54 O2 Sat by Pulse 96 98 Oximetry 09/24/19 11:07 Temperature 98.7 F Pulse Rate 53 L Respiratory 20 Rate Blood Pressure 131/76 O2 Sat by Pulse 99 Oximetry - General physical appearance Narrative Exam: Gen.: Awake, alert, oriented 3. No apparent distress ENT: Trachea midline. No lymphadenopathy. No scleral icterus or conjunctival pallor CV: S1, S2 present Respiratory: No audible wheezes Abdomen: Soft, nondistended, nontender. No rebound, rigidity, guarding Extremities: No clubbing, cyanosis, edema - Labs 09/23/19 04:16 09/24/19 10:48 Diabetes panel 09/24/19 Range/Units 10:48 Sodium 138 (137-145) mmol/L Potassium 3.4 L (3.6-5.0) mmol/L Chloride 101.7 (98-107) mmol/L Carbon Dioxide 24 (22-30) mmol/L BUN 5 L (9-20) mg/dL Creatinine 1.2 (0.8-1.3) mg/dL Glucose 107 H (75-100) mg/dL Calcium 8.9 (8.4-10.2) mg/dL Calcium panel 09/24/19 Range/Units 10:48 Calcium 8.9 (8.4-10.2) mg/dL Pituitary panel 09/24/19 Range/Units 10:48 Sodium 138 (137-145) mmol/L Potassium 3.4 L (3.6-5.0) mmol/L Chloride 101.7 (98-107) mmol/L Carbon Dioxide 24 (22-30) mmol/L BUN 5 L (9-20) mg/dL Creatinine 1.2 (0.8-1.3) mg/dL Glucose 107 H (75-100) mg/dL Calcium 8.9 (8.4-10.2) mg/dL Adrenal panel 09/24/19 Range/Units 10:48 Sodium 138 (137-145) mmol/L Potassium 3.4 L (3.6-5.0) mmol/L Chloride 101.7 (98-107) mmol/L Carbon Dioxide 24 (22-30) mmol/L BUN 5 L (9-20) mg/dL Creatinine 1.2 (0.8-1.3) mg/dL Glucose 107 H (75-100) mg/dL Calcium 8.9 (8.4-10.2) mg/dL
[2019-09-24] MEDS ORDERED: WITCH HAZEL/ GLYCERIN PAD TP PRN (15:56)
--- NOTE | 2019-09-24 15:59 | Progress Note ---
Assessment and Plan Assessment and plan: --Acute gastroenteritis/severe diarrhea Current Visit: Yes Status: Acute Plan to address problem: Patient has inflammatory changes in the small intestine Continue IV fluids clear liquids advance as tolerated Pain medications, hemorrhoidal Tucks for hemorrhoidal pain --Abnormal appendix on CT; Current Visit: Yes Status: Acute Plan to address problem: Evaluated by surgery , unlikely acute appendicitis Possible gastroenteritis versus acute colitis Continue IV Zosyn , IV fluids, pain medications --History of seizure disorder Current Visit: Yes Status: Chronic Plan to address problem: Seizure precautions , continue antiepileptic medications Do not drive until cleared by PMD or neurologist -- Acute dehydration Current Visit: Yes Status: Acute Plan to address problem: IV fluids , closely monitor and adjust management as needed -- DVT prophylaxis Current Visit: No Status: Acute Plan to address problem: SCDs for now and GI prophylaxis We will closely monitor the patient and adjust the management as needed Plan of care reviewed with the patient and his nurse 09/23; patient is on empiric antibiotics, advance diet as tolerated Possible discharge home once medically stable History Interval history: I have seen and examined the patient at the bedside this afternoon Patient's chart and medications reviewed, surgery recommendations noted Patient complains of loose stool and some hemorrhoidal pain No rectal bleeding or melena Also complains of mild abdominal pain intermittent no nausea vomiting Vital signs reviewed Hospitalist Physical - Constitutional Vitals: Temp Pulse Resp BP Pulse Ox 98.6 F 61 20 130/73 98 09/24/19 15:36 09/24/19 15:40 09/24/19 15:36 09/24/19 15:36 09/24/19 15:36 General appearance: Present: no acute distress, well-nourished - EENT Eyes: Present: PERRL, EOM intact - Neck Neck: Present: supple, normal ROM - Respiratory Respiratory effort: normal Respiratory: bilateral: diminished, negative: rales, rhonchi, wheezing - Cardiovascular Rhythm: regular Heart Sounds: Present: S1 & S2 - Extremities Extremities: no ischemia, No edema - Abdominal General gastrointestinal: soft, non-tender, non-distended, normal bowel sounds - Integumentary Integumentary: Present: clear, warm - Psychiatric Psychiatric: appropriate mood/affect, cooperative - Neurologic Neurologic: moves all extremities Results - Labs CBC & Chem 7: 09/23/19 04:16 09/24/19 10:48 Labs: Laboratory Last Values WBC 4.3 K/mm3 (4.5-11.0) L 09/23/19 04:16 RBC 4.86 M/mm3 (3.65-5.03) 09/23/19 04:16 Hgb 14.2 gm/dl (11.8-15.2) 09/23/19 04:16 Hct 41.0 % (35.5-45.6) 09/23/19 04:16 MCV 84 fl (84-94) 09/23/19 04:16 MCH 29 pg (28-32) 09/23/19 04:16 MCHC 35 % (32-34) H 09/23/19 04:16 RDW 13.0 % (13.2-15.2) L 09/23/19 04:16 Plt Count 244 K/mm3 (140-440) 09/23/19 04:16 [place] % (Auto) Adz Worker 09/23/19 04:16 Add Manual Diff Complete 09/23/19 04:16 Total Counted 100 09/23/19 04:16 Seg Neuts % (Manual) 56.0 % (40.0-70.0) 09/23/19 04:16 Band Neutrophils % 0 % 09/23/19 04:16 Lymphocytes % (Manual) 40.0 % (13.4-35.0) H 09/23/19 04:16 Reactive Lymphs % (Man) 0 % 09/23/19 04:16 Monocytes % (Manual) 4.0 % (0.0-7.3) 09/23/19 04:16 Eosinophils % (Manual) 0 % (0.0-4.3) 09/23/19 04:16 Basophils % (Manual) 0 % (0.0-1.8) 09/23/19 04:16 Metamyelocytes % 0 % 09/23/19 04:16 Myelocytes % 0 % 09/23/19 04:16 Promyelocytes % 0 % 09/23/19 04:16 Blast Cells % 0 % 09/23/19 04:16 Nucleated RBC % Not Reportable 09/23/19 04:16 Seg Neutrophils # Man 2.4 K/mm3 (1.8-7.7) 09/23/19 04:16 Band Neutrophils # 0.0 K/mm3 09/23/19 04:16 Lymphocytes # (Manual) 1.7 K/mm3 (1.2-5.4) 09/23/19 04:16 Abs React Lymphs (Man) 0.0 K/mm3 09/23/19 04:16 Monocytes # (Manual) 0.2 K/mm3 (0.0-0.8) 09/23/19 04:16 Eosinophils # (Manual) 0.0 K/mm3 (0.0-0.4) 09/23/19 04:16 Basophils # (Manual) 0.0 K/mm3 (0.0-0.1) 09/23/19 04:16 Metamyelocytes # 0.0 K/mm3 09/23/19 04:16 Myelocytes # 0.0 K/mm3 09/23/19 04:16 Promyelocytes # 0.0 K/mm3 09/23/19 04:16 Blast Cells # 0.0 K/mm3 09/23/19 04:16 WBC Morphology Not Reportable 09/23/19 04:16 Hypersegmented Neuts Not Reportable 09/23/19 04:16 Hyposegmented Neuts Not Reportable 09/23/19 04:16 Hypogranular Neuts Not Reportable 09/23/19 04:16 Smudge Cells Not Reportable 09/23/19 04:16 Toxic Granulation Not Reportable 09/23/19 04:16 Toxic Vacuolation Not Reportable 09/23/19 04:16 Dohle Bodies Not Reportable 09/23/19 04:16 Pelger-Huet Anomaly Not Reportable 09/23/19 04:16 Artie Rods Not Reportable 09/23/19 04:16 Platelet Estimate Consistent w auto 09/23/19 04:16 Clumped Platelets Not Reportable 09/23/19 04:16 Plt Clumps, EDTA Not Reportable 09/23/19 04:16 Large Platelets Not Reportable 09/23/19 04:16 Giant Platelets Not Reportable 09/23/19 04:16 Platelet Satelliting Not Reportable 09/23/19 04:16 Plt Morphology Comment Not Reportable 09/23/19 04:16 RBC Morphology Not Reportable 09/23/19 04:16 Dimorphic RBCs Not Reportable 09/23/19 04:16 Polychromasia Not Reportable 09/23/19 04:16 Hypochromasia Not Reportable 09/23/19 04:16 Poikilocytosis Not Reportable 09/23/19 04:16 Anisocytosis Not Reportable 09/23/19 04:16 Microcytosis Not Reportable 09/23/19 04:16 Macrocytosis Not Reportable 09/23/19 04:16 Spherocytes Not Reportable 09/23/19 04:16 Pappenheimer Bodies Not Reportable 09/23/19 04:16 Sickle Cells Not Reportable 09/23/19 04:16 Target Cells Not Reportable 09/23/19 04:16 Tear Drop Cells Not Reportable 09/23/19 04:16 Ovalocytes Not Reportable 09/23/19 04:16 Helmet Cells Not Reportable 09/23/19 04:16 [place] Bodies Not Reportable 09/23/19 04:16 [place] Rings Not Reportable 09/23/19 04:16 [place] Cells Not Reportable 09/23/19 04:16 Bite Cells Not Reportable 09/23/19 04:16 Crenated Cell Not Reportable 09/23/19 04:16 Elliptocytes Not Reportable 09/23/19 04:16 Acanthocytes (Spur) Not Reportable 09/23/19 04:16 Rouleaux Not Reportable 09/23/19 04:16 Hemoglobin C Crystals Not Reportable 09/23/19 04:16 Schistocytes Not Reportable 09/23/19 04:16 Malaria parasites Not Reportable 09/23/19 04:16 Bogdan Bodies Not Reportable 09/23/19 04:16 Hem Pathologist Commnt No 09/23/19 04:16 Sodium 138 mmol/L (137-145) 09/24/19 10:48 Potassium 3.4 mmol/L (3.6-5.0) L 09/24/19 10:48 Chloride 101.7 mmol/L (98-107) 09/24/19 10:48 Carbon Dioxide 24 mmol/L (22-30) 09/24/19 10:48 Anion Gap 16 mmol/L 09/24/19 10:48 BUN 5 mg/dL (9-20) L 09/24/19 10:48 Creatinine 1.2 mg/dL (0.8-1.3) 09/24/19 10:48 Estimated GFR > 60 ml/min 09/24/19 10:48 BUN/Creatinine Ratio 4 % 09/24/19 10:48 Glucose 107 mg/dL (75-100) H 09/24/19 10:48 Hemoglobin A1c 5.1 % (4-6) 09/23/19 04:16 Calcium 8.9 mg/dL (8.4-10.2) 09/24/19 10:48 Total Bilirubin 0.50 mg/dL (0.1-1.2) 09/23/19 04:16 AST 18 units/L (5-40) 09/23/19 04:16 ALT 11 units/L (7-56) 09/23/19 04:16 Alkaline Phosphatase 53 units/L (35-129) 09/23/19 04:16 Total Protein 7.5 g/dL (6.3-8.2) 09/23/19 04:16 Albumin 4.0 g/dL (3.9-5) 09/23/19 04:16 Albumin/Globulin Ratio 1.1 % 09/23/19 04:16 Lipase 21 units/L (13-60) 09/22/19 14:14 Urine Color Yellow (Yellow) 09/22/19 18:41 Urine Turbidity Turbid (Clear) 09/22/19 18:41 Urine pH 5.0 (5.0-7.0) 09/22/19 18:41 Ur Specific [place] > 1.030 (1.003-1.030) H 09/22/19 18:41 Urine Protein 30 mg/dl mg/dL (Negative) 09/22/19 18:41 Urine Glucose (UA) Neg mg/dL (Negative) 09/22/19 18:41 Urine Ketones 20 mg/dL (Negative) 09/22/19 18:41 Urine Blood Neg (Negative) 09/22/19 18:41 Urine Nitrite Neg (Negative) 09/22/19 18:41 Urine Bilirubin Neg (Negative) 09/22/19 18:41 Urine Urobilinogen < 2.0 mg/dL (<2.0) 09/22/19 18:41 Ur Leukocyte Esterase Neg (Negative) 09/22/19 18:41 Urine WBC (Auto) 100.0 /HPF (0.0-6.0) H 09/22/19 18:41 Urine RBC (Auto) 15.0 /HPF (0.0-6.0) 09/22/19 18:41 Urine Bacteria (Auto) 1+ /HPF (Negative) 09/22/19 18:41 Urine WBC Clumps 2+ /HPF 09/22/19 18:41 Microbiology: Microbiology 09/23/19 Unknown Stool Stool for WBCs - Final Few Polymorphonuclear Cells Seen Carlos/IV: Voiding Method Toilet IV Catheter Type [Left Peripheral IV Antecubital] IV Catheter Type [Right Peripheral IV Antecubital] Active Medications - Current Medications Current Medications: Generic Name Dose Route Start Last Admin Trade Name Freq PRN Reason Stop Dose Admin Acetaminophen 650 mg 09/22/19 23:27 Tylenol PO Q4H PRN Pain MILD(1-3)/Fever >100.5/NIELSON Dicyclomine HCl 10 mg 09/24/19 14:00 Bentyl PO QID VALERIA Famotidine 20 mg 09/22/19 23:45 09/24/19 10:16 Pepcid IV 20 mg BID VALERIA Administration Hydromorphone HCl 1 mg 09/22/19 23:27 09/23/19 21:58 Dilaudid IV 1 mg Q3H PRN Administration Pain , Severe (7-10) Sodium Chloride 1,000 mls @ 100 mls/hr 09/22/19 23:30 09/24/19 02:12 Nacl 0.9% 1000 Ml IV 100 mls/hr DIRECT VALERIA Administration Piperacillin Sod/Tazobactam Sod 4.5 gm in 100 mls @ 200 mls/hr 09/23/19 01:00 09/24/19 11:22 Zosyn/Ns 4.5gm/100ml IV 200 mls/hr Q8H VALERIA Administration Protocol Levetiracetam 750 mg/ Dextrose 107.5 mls @ 400 mls/hr 09/23/19 10:00 09/24/19 10:17 IV 400 mls/hr Q12HR VALERIA Administration Lacosamide 100 mg/ Sodium 110 mls @ 100 mls/hr 09/23/19 09:00 09/23/19 22:08 Chloride IV 100 mls/hr Q12HR VALERIA Administration Metoclopramide HCl 10 mg 09/23/19 10:00 09/24/19 10:16 Reglan IV 10 mg Q8H VALERIA Administration Ondansetron HCl 4 mg 09/23/19 10:00 09/23/19 21:59 Zofran IV 4 mg Q6H PRN Administration Nausea And Vomiting Sodium Chloride 10 ml 09/23/19 10:00 09/24/19 12:27 Sodium Chloride Flush Syringe 10 Ml IV Not Given BID VALERIA Sodium Chloride 10 ml 09/22/19 23:27 Sodium Chloride Flush Syringe 10 Ml IV PRN PRN LINE FLUSH
[2019-09-24] MEDS: DICYCLOMINE 10 MG CAP PO SCH ×2 (16:46→22:48)
[2019-09-25] MEDS: PIPERACIL/TAZOBACTA 4.5/NS 100 4.5 GM/100 ML VIAL IV SCH ×2 (00:21→09:12)
[2019-09-25] MEDS: METOCLOPRAMIDE 10 MG/2 ML INJ IV SCH ×2 (03:13→09:12)
[2019-09-25] MEDS: FAMOTIDINE 20 MG/2 ML INJ IV SCH (09:12)
[2019-09-25] MEDS: DICYCLOMINE 10 MG CAP PO SCH ×3 (09:12→13:52)
[2019-09-25] MEDS: levETIRAcetam 750 MG in DEXTROSE 5% IN WATER 100 ML IV SCH (09:14)
[2019-09-25] MEDS: LACOSAMIDE 100 MG in SODIUM CHLORIDE 0.9% 100 ML IV SCH (09:14)
[2019-09-25 11:23] VITALS: BP 127/68
--- NOTE | 2019-09-25 13:55 | Discharge Summary ---
Providers - Providers Date of Admission: 09/22/19 17:53 Date of discharge: 09/25/19 Attending physician: VANESSA LOPEZ 09/22/19 16:37 Consult to Physician [CONS] Urgent Comment: Consulting Provider: GARRETT VARGAS Physician Instructions: Reason For Exam: Appendicitis Primary care physician: LABOR TRAINER Hospitalization Condition: Stable Disposition: DC-01 TO HOME OR SELFCARE Time spent for discharge: 32 min Core Measure Documentation - Palliative Care Palliative Care/ Comfort Measures: Not Applicable - Core Measures Any of the following diagnoses?: none Exam - Constitutional Vitals: Temp Pulse Resp BP Pulse Ox 98.6 F 50 L 20 127/68 72 L 09/25/19 11:04 09/25/19 11:04 09/25/19 11:04 09/25/19 11:00 09/25/19 11:04 General appearance: Present: no acute distress, well-nourished - EENT Eyes: Present: PERRL, EOM intact - Neck Neck: Present: supple, normal ROM - Respiratory Respiratory effort: normal Respiratory: bilateral: diminished, negative: rales, rhonchi, wheezing - Cardiovascular Rhythm: regular Heart Sounds: Present: S1 & S2 - Extremities Extremities: no ischemia, No edema - Abdominal General gastrointestinal: Present: soft, non-tender, non-distended, normal bowel sounds - Integumentary Integumentary: Present: clear, warm - Musculoskeletal Musculoskeletal: strength equal bilaterally, generalized weakness - Psychiatric Psychiatric: appropriate mood/affect, cooperative - Neurologic Neurologic: moves all extremities Plan Activity: no restrictions Diet: advance as tolerated, other (Soft diet,) Additional Instructions: If you have worsening symptoms contact MD or go to emergency room. Soft diet advance as tolerated Follow up with: PRIMARY CARE,MD [Primary Care Provider] - 3-5 Days Prescriptions: Amoxicillin/Potassium Clav [Augmentin 875-125 Tablet] 1 each PO BID #14 tablet Dicyclomine [Bentyl] 10 mg PO QID #20 capsule Glycerin/ Witch Dot Pad [Tucks Pad] 1 each TP PRN PRN #1 box PRN Reason: Hemorrhoids
== END 2019-09-25 16:33 | disposition home or self-care (01) | DRG 392 ==
LOC: ED 13:24 → 3A 17:53 → 3B-SURG 18:04
PROVIDERS: ADMIT Internal Medicine; ATTEND Internal Medicine
DX: K52.9 Noninfective gastroenteritis and colitis, unspecified (principal); K35.80 Unspecified acute appendicitis; G40.909 Epilepsy, unspecified, not intractable, without status epilepticus; E86.0 Dehydration; J45.909 Unspecified asthma, uncomplicated; F12.90 Cannabis use, unspecified, uncomplicated; G43.909 Migraine, unspecified, not intractable, without status migrainosus; Z79.899 Other long term (current) drug therapy; Z82.49 Family history of ischemic heart disease and other diseases of the circulatory system
CPT/HCPCS: 36415; 74177; 80048; 80053; 81001; 83036; 83690; 85007; 85025; 87045; 87086; G0378; C9254; J1170; J1953; J2270; J2405; J2543; J2765; J7030; Q9967